=== PATIENT | female | born 1955 | race Caucasian/White ===

== ENCOUNTER 2018-03-12 21:30 | Emergency (ER) | payer OTHER ==
[2018-03-12 21:36] VITALS: TEMP 98.2
[2018-03-12] MEDS ORDERED: SODIUM CHLORIDE 0.9% 1,000 ML IV STA (21:54)
[2018-03-12 22:22] LABS: Albumin 3.9 g/dL (3.5-5.0); Calcium 9.3 mg/dL (8.4-10.2); Magnesium 1.8 mg/dL (1.6-2.3); Potassium 3.7 mmol/L (3.5-5.1); Total Bilirubin 0.5 mg/dL (0.2-1.3)
--- NOTE | 2018-03-12 22:22 | XR ---
EXAMINATION TYPE: XR chest 2V DATE OF EXAM: 03/12/2018 COMPARISON: NONE HISTORY: Chest pain TECHNIQUE: Frontal and lateral views of the chest are obtained. FINDINGS: Heart and mediastinum are within normal limits. Lungs are clear of consolidation. There is osteopenia. There are chest leads. Thoracic aorta shows mild atheromatous change. IMPRESSION: No active cardiopulmonary disease.
[2018-03-12] MEDS ORDERED: MORPHINE SULFATE 2 MG/ML SYRINGE IVP STA (22:26)
--- NOTE | 2018-03-12 22:29 | ED ---
General Adult HPI - General Chief complaint: Chest Pain Stated complaint: Chest pain Time Seen by Provider: 03/12/18 21:40 Source: patient, RN notes reviewed, old records reviewed Mode of arrival: ambulatory Limitations: no limitations - History of Present Illness Initial comments: This is a 62-year-old female the ER for evaluation. This patient was essay for evaluation regards to right-sided chest pain. Patient has history of viral myalgia, does have no significant history of heart disease. Patient states she' s had right-sided chest pain worse with movement for about a day, she also has not left-sided chest pain which feels like prior episodes of shingles. She denies significant shortness of breath may be some chills. Decreased appetite with mild abdominal pain as well. No fevers no travel history - Related Data Home Medications Medication Instructions Recorded Confirmed Aspirin EC [Ecotrin Low Dose] 81 mg PO DAILY 03/12/18 03/12/18 Folic Acid 1 mg PO DAILY 03/12/18 03/12/18 Lisinopril [Zestril] 2.5 mg PO DAILY 03/12/18 03/12/18 Methotrexate Sodium [Methotrexate] 25 mg PO TU 03/12/18 03/12/18 Omeprazole 40 mg PO DAILY 03/12/18 03/12/18 predniSONE 5 mg PO DAILY 03/12/18 03/12/18 Allergies Allergy/AdvReac Type Severity Reaction Status Date / Time No Known Allergies Allergy Verified 03/12/18 22:06 Review of Systems ROS Statement: Those systems with pertinent positive or pertinent negative responses have been documented in the HPI. ROS Other: All systems not noted in ROS Statement are negative. Past Medical History Past Medical History: Fibromyalgia, GERD/Reflux, Rheumatoid Arthritis (RA) History of Any Multi-Drug Resistant Organisms: None Reported Past Surgical History: Breast Surgery Additional Past Surgical History / Comment(s): Cervical surgery Past Psychological History: No Psychological Hx Reported Smoking Status: Never smoker Past Alcohol Use History: Rare Past Drug Use History: Marijuana General Exam Limitations: no limitations General appearance: alert, in no apparent distress Head exam: Present: atraumatic, normocephalic, normal inspection Eye exam: Present: normal appearance, PERRL, EOMI. Absent: scleral icterus, conjunctival injection, periorbital swelling ENT exam: Present: normal exam, mucous membranes moist Neck exam: Present: normal inspection. Absent: tenderness, meningismus, lymphadenopathy Respiratory exam: Present: normal lung sounds bilaterally. Absent: respiratory distress, wheezes, rales, rhonchi, stridor Cardiovascular Exam: Present: regular rate, normal rhythm, normal heart sounds. Absent: systolic murmur, diastolic murmur, rubs, gallop, clicks GI/Abdominal exam: Present: soft, normal bowel sounds. Absent: distended, tenderness, guarding, rebound, rigid Extremities exam: Present: normal inspection, full ROM, normal capillary refill. Absent: tenderness, pedal edema, joint swelling, calf tenderness Back exam: Present: normal inspection Neurological exam: Present: alert, oriented X3, CN II-XII intact Psychiatric exam: Present: normal affect, normal mood Skin exam: Present: warm, dry, intact, normal color. Absent: rash Course Vital Signs 03/12/18 03/12/18 03/12/18 21:32 22:36 23:08 Temperature 98.2 F Pulse Rate 84 78 Respiratory 18 16 16 Rate Blood Pressure 158/73 163/67 O2 Sat by Pulse 99 99 Oximetry 03/12/18 23:50 Temperature Pulse Rate Respiratory 20 Rate Blood Pressure O2 Sat by Pulse Oximetry EKG Findings - EKG Comments: EKG Findings:: EKG shows normal sinus rhythm rate of 86, NH 138, QRS 78, QTC 452 Medical Decision Making - Medical Decision Making 62 female the ER with nonspecific right-sided chest wall pain aside chest pain CT chest negative for acute disease ultrasound gallbladder negative. Patient can be discharged home if she is not in any acute pain currently - Lab Data Result diagrams: 03/12/18 21:55 03/12/18 21:55 Lab Results 03/12/18 03/12/18 03/12/18 Range/Units 21:55 21:55 21:55 WBC 10.3 (3.8-10.6) k/uL RBC 3.88 (3.80-5.40) m/uL Hgb 12.2 (11.4-16.0) gm/dL Hct 37.1 (34.0-46.0) % MCV 95.5 (80.0-100.0) fL MCH 31.4 (25.0-35.0) pg MCHC 32.8 (31.0-37.0) g/dL RDW 18.2 H (11.5-15.5) % Plt Count 221 (150-450) k/uL Neutrophils % 73 % Lymphocytes % 19 % Monocytes % 5 % Eosinophils % 2 % Basophils % 0 % Neutrophils # 7.5 (1.3-7.7) k/uL Lymphocytes # 1.9 (1.0-4.8) k/uL Monocytes # 0.5 (0-1.0) k/uL Eosinophils # 0.2 (0-0.7) k/uL Basophils # 0.0 (0-0.2) k/uL Anisocytosis Slight Macrocytosis Slight PT (9.0-12.0) sec INR (<1.2) APTT (22.0-30.0) sec D-Dimer (<0.60) mg/L FEU Sodium 137 (137-145) mmol/L Potassium 3.7 (3.5-5.1) mmol/L Chloride 101 (98-107) mmol/L Carbon Dioxide 25 (22-30) mmol/L Anion Gap 11 mmol/L BUN 22 H (7-17) mg/dL Creatinine 1.00 (0.52-1.04) mg/dL Est GFR (CKD-EPI)AfAm 70 (>60 ml/min/1.73 sqM) Est GFR (CKD-EPI)NonAf 61 (>60 ml/min/1.73 sqM) Glucose 100 H (74-99) mg/dL Calcium 9.3 (8.4-10.2) mg/dL Magnesium 1.8 (1.6-2.3) mg/dL Total Bilirubin 0.5 (0.2-1.3) mg/dL AST 22 (14-36) U/L ALT 28 (9-52) U/L Alkaline Phosphatase 77 (38-126) U/L Total Creatine Kinase 30 (30-135) U/L CK-MB (CK-2) <0.2 (0.0-2.4) ng/mL CK-MB (CK-2) Rel Index Troponin I <0.012 (0.000-0.034) ng/mL NT-Pro-B Natriuret Pep pg/mL Total Protein 7.0 (6.3-8.2) g/dL Albumin 3.9 (3.5-5.0) g/dL Lipase 44 (23-300) U/L 03/12/18 03/12/18 03/12/18 Range/Units 21:55 23:25 23:25 WBC (3.8-10.6) k/uL RBC (3.80-5.40) m/uL Hgb (11.4-16.0) gm/dL Hct (34.0-46.0) % MCV (80.0-100.0) fL MCH (25.0-35.0) pg MCHC (31.0-37.0) g/dL RDW (11.5-15.5) % Plt Count (150-450) k/uL Neutrophils % % Lymphocytes % % Monocytes % % Eosinophils % % Basophils % % Neutrophils # (1.3-7.7) k/uL Lymphocytes # (1.0-4.8) k/uL Monocytes # (0-1.0) k/uL Eosinophils # (0-0.7) k/uL Basophils # (0-0.2) k/uL Anisocytosis Macrocytosis PT 10.8 (9.0-12.0) sec INR 1.1 (<1.2) APTT 21.9 L (22.0-30.0) sec D-Dimer 0.57 (<0.60) mg/L FEU Sodium (137-145) mmol/L Potassium (3.5-5.1) mmol/L Chloride (98-107) mmol/L Carbon Dioxide (22-30) mmol/L Anion Gap mmol/L BUN (7-17) mg/dL Creatinine (0.52-1.04) mg/dL Est GFR (CKD-EPI)AfAm (>60 ml/min/1.73 sqM) Est GFR (CKD-EPI)NonAf (>60 ml/min/1.73 sqM) Glucose (74-99) mg/dL Calcium (8.4-10.2) mg/dL Magnesium (1.6-2.3) mg/dL Total Bilirubin (0.2-1.3) mg/dL AST (14-36) U/L ALT (9-52) U/L Alkaline Phosphatase (38-126) U/L Total Creatine Kinase (30-135) U/L CK-MB (CK-2) (0.0-2.4) ng/mL CK-MB (CK-2) Rel Index Troponin I (0.000-0.034) ng/mL NT-Pro-B Natriuret Pep 82 pg/mL Total Protein (6.3-8.2) g/dL Albumin (3.5-5.0) g/dL Lipase 31 (23-300) U/L - Radiology Data Radiology results: report reviewed (CT chest negative ultrasound gallbladder is negative), image reviewed Disposition Clinical Impression: Chest pain Disposition: HOME SELF-CARE Condition: Good Instructions: Chest Pain (ED) Is patient prescribed a controlled substance at d/c from ED?: No Referrals: Lucas Julio MD [Primary Care Provider] - 1-2 days
[2018-03-12 22:31] LABS: Anisocytosis Slight; Basophils % (A) 0 %; Eosinophils # (A) 0.2 k/uL (0-0.7); Eosinophils % (A) 2 %; HCT 37.1 % (34.0-46.0); HGB 12.2 gm/dL (11.4-16.0); Lymphocytes # (A) 1.9 k/uL (1.0-4.8); Lymphocytes % (A) 19 %; MCH 31.4 pg (25.0-35.0); MCHC 32.8 g/dL (31.0-37.0); MCV 95.5 fL (80.0-100.0); Macrocytosis Slight; Mean Platelet Volume 8.5; Monocytes # (A) 0.5 k/uL (0-1.0); Monocytes % (A) 5 %; Neutrophils # (A) 7.5 k/uL (1.3-7.7); Neutrophils % (A) 73 %; Platelet Count 221 k/uL (150-450); RBC 3.88 m/uL (3.80-5.40); RDW 18.2 % (11.5-15.5); WBC 10.3 k/uL (3.8-10.6)
[2018-03-12 22:33] LABS: Creatine Kinase 30 U/L (30-135)
[2018-03-12 22:44] LABS: Creatine Kinase MB <0.2 ng/mL (0.0-2.4); Troponin I <0.012 ng/mL (0.000-0.034)
--- NOTE | 2018-03-12 23:35 | CT ---
EXAMINATION TYPE: CT angio chest DATE OF EXAM: 03/12/2018 11:22 PM COMPARISON: None HISTORY: chest pain, r/o pe CT DLP: 509.70 mGycm Automated exposure control for dose reduction was used. CONTRAST: CTA scan of the thorax is performed with IV Contrast, patient injected with 60 mL of Isovue 370, pulm onary embolism protocol. There are 3-D post processed images.. FINDINGS: The lungs are clear of consolidation. There is no evidence of a pulmonary mass. There is no pleural e ffusion. Heart size is normal. There is no pericardial effusion. Thoracic aorta is atheromatous. There is normal contrast opacification of the pulmonary arteries. I see no filling defect. There is n o mediastinal adenopathy. There are no hilar masses. There is some spurring in the thoracic spine. IMPRESSION: NO EVIDENCE OF PULMONARY EMBOLISM. MILD SPONDYLOTIC CHANGES IN THE THORACIC SPINE. ATHEROSCLEROTIC VA SCULAR DISEASE.
[2018-03-12 23:53] LABS: D-Dimer 0.57 mg/L FEU (<0.60); INR 1.1 (<1.2); Partial Thromboplastin Time 21.9 sec (22.0-30.0); Prothrombin Time 10.8 sec (9.0-12.0)
--- NOTE | 2018-03-13 00:36 | US ---
EXAMINATION TYPE: US gallbladder DATE OF EXAM: 03/13/2018 COMPARISON: NONE CLINICAL HISTORY: Pain. RUQ pain. Exam limitations due to body habitus. EXAM MEASUREMENTS: Liver Length: 15.5 cm Gallbladder Wall: 0.27 cm CBD: 0.6 cm Right Kidney: 9.7 x 4.4 x 4.7 cm Pancreas: Obscured by bowel gas Liver: Increased attenuation Gallbladder: No stones seen Evidence for sonographic Moore's sign: No CBD: wnl Right Kidney: No hydronephrosis or masses seen IMPRESSION: No gallstones or dilated ducts. Right kidney shows no hydronephrosis. No free fluid.
[2018-03-13 01:44] VITALS: BP 114/56; PULSE 73; RESP 16
== END 2018-03-13 01:50 | disposition home or self-care (01) ==
LOC: EC 21:30
DX: R07.9 Chest pain, unspecified (principal); M79.7 Fibromyalgia; K21.9 Gastro-esophageal reflux disease without esophagitis; M06.9 Rheumatoid arthritis, unspecified; Z98.890 Other specified postprocedural states; Z79.52 Long term (current) use of systemic steroids; Z79.82 Long term (current) use of aspirin; Z79.899 Other long term (current) drug therapy
CPT/HCPCS: 36415; 93005; 85379; 83880; 80053; 82550; 82553; 83690; 83735; 84484; 85025; 85610; 85730; 71046; 76705; 71275; 99285; 96374; 96361 ×3; J2270; Q9967

== ENCOUNTER 2023-01-13 18:08 | Inpatient (IN) | payer MEDICARE, OTHER ==
[2023-01-13] MEDS ORDERED: IBUPROFEN 600 MG TAB PO STA (18:50)
[2023-01-13] MEDS ORDERED: ACETAMINOPHEN TAB 500 MG TAB PO STA (18:50)
[2023-01-13] MEDS: SODIUM CHLORIDE 0.9% 500 ML 500 ML IV SCH ×2 (19:12→19:53)
[2023-01-13 19:24] LABS: Anisocytosis Slight; Basophils % (A) 0 %; Eosinophils # (A) 0.2 k/uL (0-0.7); Eosinophils % (A) 2 %; HCT 31.9 % (34.0-46.0); HGB 10.2 gm/dL (11.4-16.0); Hypochromasia Slight; Lymphocytes # (A) 0.4 k/uL (1.0-4.8); Lymphocytes % (A) 4 %; MCHC 31.9 g/dL (31.0-37.0); MCV 100.3 fL (80.0-100.0); Macrocytosis Slight; Mean Platelet Volume 7.8; Monocytes # (A) 0.6 k/uL (0-1.0); Monocytes % (A) 8 %; Neutrophils # (A) 6.7 k/uL (1.3-7.7); Neutrophils % (A) 84 %; Platelet Count 239 k/uL (150-450); RBC 3.19 m/uL (3.80-5.40); RDW 17.7 % (11.5-15.5)
--- NOTE | 2023-01-13 19:25 | CT ---
EXAMINATION TYPE: CT brain wo con DATE OF EXAM: 01/13/2023 COMPARISON: None INDICATION: AMS, dyskinesia DLP: 1183.4 mGycm, Automated exposure control for dose reduction was used. CONTRAST: None CT of the brain is performed utilizing 3 mm thick sections through the posterior fossa and 3 mm thick sections through the remaining calvarium. Study is performed within 24 hours of arrival to the hosp ital. No abnormal hyperdensity is present to suggest an acute intracranial hemorrhage. No mass lesion is evident. No acute infarcts are evident. There is mild periventricular white matter hypodensity, likely on the basis of chronic white matter ischemic changes Ventricles and sulci are prominent for the patient age. Paranasal sinuses and mastoid air cells within the [id number] are clear. IMPRESSIONS: 1. Atrophy with chronic appearing periventricular white matter ischemic-type changes. Follow-up MRI can be performed as clinically indicated
[2023-01-13 19:34] LABS: Albumin 3.4 g/dL (3.5-5.0); Calcium 8.8 mg/dL (8.4-10.2); Potassium 4.2 mmol/L (3.5-5.1); Total Bilirubin 0.4 mg/dL (0.2-1.3); Total Protein 6.9 g/dL (6.3-8.2)
[2023-01-13 19:40] LABS: Appearance,Urine Clear (Clear); Bacteria,Urine Rare /hpf; Bilirubin,Urine Negative (Negative); Blood,Urine Trace (Negative); Calcium Oxalate Crystals,Urine Many /hpf; Color,Urine Yellow; Glucose,Urine (UA) Negative (Negative); Hyaline Casts,Urine 4 /lpf (0-2); Ketones,Urine Trace (Negative); Leukocyte Esterase,Urine Trace (Negative); Mucus,Urine Rare /hpf; Nitrite,Urine Negative (Negative); PH, Urine 6.5 (5.0-8.0); Protein,Urine 1+ (Negative); RBC,Urine 13 /hpf (0-5); Specific Gravity,Urine 1.024 (1.001-1.035); Squamous Epithelial Cell,Urine 2 /hpf (0-4); WBC,Urine 6 /hpf (0-5)
[2023-01-13 19:45] LABS: Partial Thromboplastin Time 23.2 sec (22.0-30.0); Prothrombin Time 10.8 sec (9.0-12.0)
--- NOTE | 2023-01-13 20:19 | ED ---
General Adult HPI - General Chief complaint: Altered Mental Status Stated complaint: AMS Time Seen by Provider: 01/13/23 18:15 Source: patient, EMS, RN notes reviewed, old records reviewed Mode of arrival: EMS - History of Present Illness Initial comments: This is a 67-year-old female presents emergency Department with daughter. Daughter gives most history. Patient herself states that she has no symptoms and has no complains. Daughter states she has a fever and she is acting a little differently and having quite a bit of dyskinesia. Patient herself agrees that that is happening her extremities are moving occasionally involuntarily but patient is alert and oriented 3. Patient denies any chest pain difficulty breathing shortness of breath. Patient denies headache patient denies numbness or weakness. Patient denies any neck stiffness or pain. Patient's abdominal pain patient denies nausea vomiting diarrhea. Patient denies any dysuria hematuria urinary frequency. - Related Data Home Medications Medication Instructions Recorded Confirmed Aspirin EC [Ecotrin Low Dose] 81 mg PO DAILY 03/12/18 03/12/18 Folic Acid 1 mg PO DAILY 03/12/18 03/12/18 Omeprazole 40 mg PO DAILY 03/12/18 03/12/18 lisinopriL [Zestril] 2.5 mg PO DAILY 03/12/18 03/12/18 metHOTREXate sodium [Methotrexate] 25 mg PO TU 03/12/18 03/12/18 predniSONE 5 mg PO DAILY 03/12/18 03/12/18 Allergies Allergy/AdvReac Type Severity Reaction Status Date / Time No Known Allergies Allergy Verified 03/12/18 22:06 Review of Systems ROS Statement: Those systems with pertinent positive or pertinent negative responses have been documented in the HPI. ROS Other: All systems not noted in ROS Statement are negative. Past Medical History Past Medical History: Fibromyalgia, GERD/Reflux, Rheumatoid Arthritis (RA) History of Any Multi-Drug Resistant Organisms: None Reported Past Surgical History: Breast Surgery Additional Past Surgical History / Comment(s): Cervical surgery Past Psychological History: No Psychological Hx Reported Smoking Status: Former smoker Past Alcohol Use History: Rare Past Drug Use History: Marijuana General Exam - General Exam Comments Initial Comments: GENERAL: Patient is well-developed and well-nourished. Patient is nontoxic and well-hydr ated and is in no acute distress. ENT: Neck is soft and supple. No significant lymphadenopathy is noted. Oropharynx is clear. Moist mucous membranes. Neck has full range of motion without eliciting any pain. EYES: The sclera were anicteric and conjunctiva were pink and moist. Extraocular mov ements were intact and pupils were equal round and reactive to light. Eyelids were unremarkable. PULMONARY: Unlabored respirations. Good breath sounds bilaterally. No audible rales rhonchi or wheezing was noted. CARDIOVASCULAR: There is a regular rate and rhythm without any murmurs gallops or rubs. ABDOMEN: Soft and nontender with normal bowel sounds. SKIN: Skin is clear with no lesions or rashes and otherwise unremarkable. NEUROLOGIC: Patient is alert and oriented x3. Cranial nerves II through XII are grossly intact. Motor and sensory are also intact. Normal speech, volume and content. Symmetrical smile. Patient has some involuntary movements of the arms legs and head. MUSCULOSKELETAL: Normal extremities with adequate strength and full range of motion. LYMPHATICS: No significant lymphadenopathy is noted PSYCHIATRIC: Normal psychiatric evaluation. Course Vital Signs 01/13/23 01/13/23 18:13 20:19 Temperature 102.7 F H 99.6 F Pulse Rate 114 H 82 Respiratory 18 16 Rate Blood Pressure 141/65 140/61 O2 Sat by Pulse 95 96 Oximetry Medical Decision Making - Medical Decision Making EKG was interpreted by me as very poor quality V5 and V6 cannot be read because of the patient's movement. EKG shows a sinus rhythm at 94 bpm [place] interval is 225 QRSs 80 QT interval is 370 QTC is 339. Patient's EKG shows no ST segment elevation or depression Was pt. sent in by a medical professional or institution (, PA, FRAME MAKER, urgent care, hospital, or residential...) When possible be specific @ -No Did you speak to anyone other than the patient for history (EMS, parent, family, police, friend...)? What history was obtained from this source @ -Daughter gave most of the history Did you review nursing and triage notes (agree or disagree)? Why? @ -I reviewed and agree with nursing and triage notes Were old charts reviewed (outside hosp., previous admission, EMS record, old EKG, old radiological studies, urgent care reports/EKG's, residential records)? Report findings @ -I reviewed old charts and lab work Differential Diagnosis (chest pain, altered mental status, abdominal pain women, abdominal pain men, vaginal bleeding, weakness, fever, dyspnea, syncope, headache, dizziness, GI bleed, back pain, seizure, CVA, palpatations, mental health, @ -Differential Fever: Pneumonia, viral URI, endocarditis, myocarditis, pericarditis, otitis, sinusitis, peritonsillar Abscess, retropharyngeal Abscess, epiglottitis, peritonitis, appendicitis, Katja cystitis, diverticulitis, hepatitis, colitis, UTI, PID, TOA, pyelonephritis, prostatitis, epididymitis, meningitis, encephalitis, pulmonary embolism, CVA, thyroid storm, pancreatitis, adrenal crisis, cavernous sinus thrombosis, this is not meant to be an all-inclusive list. EKG interpreted by me (3pts min.). @ -As above X-rays interpreted by me (1pt min.). @ -I interpreted the chest x-ray. Chest x-ray shows a pleural effusion and an infiltrate consistent with pneumonia CT interpreted by me (1pt min.). @ -CT of brain was interpreted by myself shows no acute abnormalities U/S interpreted by me (1pt. min.). @ -None done What testing was considered but not performed or refused? (CT, X-rays, U/S, labs)? Why? @ -None What meds were considered but not given or refused? Why? @ -None Did you discuss the management of the patient with other professionals (professionals i.e. , PA, FRAME MAKER, lab, RT, psych nurse, 7th grade social studies teacher, maintenance engineer oil field, teacher, corporate banking officer, embedded case manager)? Give summary @ -I spoke with [place] hospitalist agreed to admit the patient admitted the patient wrote admitting orders. Was smoking cessation discussed for >3mins.? @ -No Was critical care preformed (if so, how long)? @ -No Were there social determinants of health that impacted care today? How? (Homelessness, low income, unemployed, alcoholism, drug addiction, transportation, low edu. Level, literacy, decrease access to med. care, penitentiary, rehab)? @ -No Was there de-escalation of care discussed even if they declined (Discuss DNR or withdrawal of care, Hospice)? DNR status @ -No What co-morbidities impacted this encounter? (DM, HTN, Smoking, COPD, CAD, Cancer, CVA, ARF, Chemo, Hep., AIDS, mental health diagnosis, sleep apnea, morbid obesity)? @ -None Was patient admitted / discharged? Hospital course, mention meds given and rout e, prescriptions, significant lab abnormalities, going to OR and other pertinent info. @ -Patient had Motrin and Tylenol for the fever and is having a lot less involuntary movement. Patient was still alert and oriented 3 and without complaint. Chest x-ray showed a pleural effusion on the left and a probable infiltrate. I started the patient antibiotics I spoke with the [facility] hospitalist agreed to admit the patient admitted the patient wrote admitting orders Undiagnosed new problem with uncertain prognosis? @ -No Drug Therapy requiring intensive monitoring for toxicity (Heparin, Nitro, Insulin, Cardizem)? @ -No Were any procedures done? @ -No Diagnosis/symptom? @ -Pneumonia Acute, or Chronic, or Acute on Chronic? @ -Acute Uncomplicated (without systemic symptoms) or Complicated (systemic symptoms)? @ -Complicated Side effects of treatment? @ -No Exacerbation, Progression, or Severe Exacerbation? @ -No Poses a threat to life or bodily function? How? (Chest pain, [place], NC, pneumonia, PE, COPD, DKA, ARF, appy, cholecystitis, CVA, Diverticulitis, Homicidal, Suicidal, threat to staff... and all critical care pts) @ -No Diagnosis/symptom? @ -Pleural effusion Acute, or Chronic, or Acute on Chronic? @ -Acute Uncomplicated (without systemic symptoms) or Complicated (systemic symptoms)? @ -Complicated Side effects of treatment? @ -none Exacerbation, Progression, or Severe Exacerbation] @ -no Poses a threat to life or bodily function? @ -no - Lab Data Result diagrams: 01/13/23 19:03 01/13/23 19:03 Lab Results 01/13/23 01/13/23 01/13/23 Range/Units 19:03 19:03 19:03 WBC 8.0 (3.8-10.6) k/uL RBC 3.19 L (3.80-5.40) m/uL Hgb 10.2 L (11.4-16.0) gm/dL Hct 31.9 L (34.0-46.0) % MCV 100.3 H (80.0-100.0) fL MCH 32.0 (25.0-35.0) pg MCHC 31.9 (31.0-37.0) g/dL RDW 17.7 H (11.5-15.5) % Plt Count 239 (150-450) k/uL MPV 7.8 Neutrophils % 84 % Lymphocytes % 4 % Monocytes % 8 % Eosinophils % 2 % Basophils % 0 % Neutrophils # 6.7 (1.3-7.7) k/uL Lymphocytes # 0.4 L (1.0-4.8) k/uL Monocytes # 0.6 (0-1.0) k/uL Eosinophils # 0.2 (0-0.7) k/uL Basophils # 0.0 (0-0.2) k/uL Hypochromasia Slight Anisocytosis Slight Macrocytosis Slight PT 10.8 (9.0-12.0) sec INR 1.0 (<1.2) APTT 23.2 (22.0-30.0) sec Sodium (137-145) mmol/L Potassium (3.5-5.1) mmol/L Chloride (98-107) mmol/L Carbon Dioxide (22-30) mmol/L Anion Gap mmol/L BUN (7-17) mg/dL Creatinine (0.52-1.04) mg/dL Est GFR (CKD-EPI)AfAm (>60 ml/min/1.73 sqM) Est GFR (CKD-EPI)NonAf (>60 ml/min/1.73 sqM) Glucose (74-99) mg/dL Plasma Lactic Acid Tigre (0.7-2.0) mmol/L Calcium (8.4-10.2) mg/dL Total Bilirubin (0.2-1.3) mg/dL AST (14-36) U/L ALT (4-34) U/L Alkaline Phosphatase (38-126) U/L Total Protein (6.3-8.2) g/dL Albumin (3.5-5.0) g/dL Urine Color Urine Appearance (Clear) Urine pH (5.0-8.0) Ur Specific [place] (1.001-1.035) Urine Protein (Negative) Urine Glucose (UA) (Negative) Urine Ketones (Negative) Urine Blood (Negative) Urine Nitrite (Negative) Urine Bilirubin (Negative) Urine Urobilinogen (<2.0) mg/dL Ur Leukocyte Esterase (Negative) Urine RBC (0-5) /hpf Urine WBC (0-5) /hpf Ur Squamous Epith Cells (0-4) /hpf Calcium Oxalate Crystal (None) /hpf Urine Bacteria (None) /hpf Hyaline Casts (0-2) /lpf Urine Mucus (None) /hpf Influenza Type A (PCR) Not Detected (Not Detectd) Influenza Type B (PCR) Not Detected (Not Detectd) RSV (PCR) Not Detected (Not Detectd) SARS-CoV-2 (PCR) Not Detected (Not Detectd) 01/13/23 01/13/23 01/13/23 Range/Units 19:03 19:03 19:03 WBC (3.8-10.6) k/uL RBC (3.80-5.40) m/uL Hgb (11.4-16.0) gm/dL Hct (34.0-46.0) % MCV (80.0-100.0) fL MCH (25.0-35.0) pg MCHC (31.0-37.0) g/dL RDW (11.5-15.5) % Plt Count (150-450) k/uL MPV Neutrophils % % Lymphocytes % % Monocytes % % Eosinophils % % Basophils % % Neutrophils # (1.3-7.7) k/uL Lymphocytes # (1.0-4.8) k/uL Monocytes # (0-1.0) k/uL Eosinophils # (0-0.7) k/uL Basophils # (0-0.2) k/uL Hypochromasia Anisocytosis Macrocytosis PT (9.0-12.0) sec INR (<1.2) APTT (22.0-30.0) sec Sodium 135 L (137-145) mmol/L Potassium 4.2 (3.5-5.1) mmol/L Chloride 101 (98-107) mmol/L Carbon Dioxide 25 (22-30) mmol/L Anion Gap 9 mmol/L BUN 16 (7-17) mg/dL Creatinine 1.03 (0.52-1.04) mg/dL Est GFR (CKD-EPI)AfAm 65 (>60 ml/min/1.73 sqM) Est GFR (CKD-EPI)NonAf 56 (>60 ml/min/1.73 sqM) Glucose 116 H (74-99) mg/dL Plasma Lactic Acid Tigre 1.8 (0.7-2.0) mmol/L Calcium 8.8 (8.4-10.2) mg/dL Total Bilirubin 0.4 (0.2-1.3) mg/dL AST 25 (14-36) U/L ALT 15 (4-34) U/L Alkaline Phosphatase 74 (38-126) U/L Total Protein 6.9 (6.3-8.2) g/dL Albumin 3.4 L (3.5-5.0) g/dL Urine Color Yellow Urine Appearance Clear (Clear) Urine pH 6.5 (5.0-8.0) Ur Specific [place] 1.024 (1.001-1.035) Urine Protein 1+ H (Negative) Urine Glucose (UA) Negative (Negative) Urine Ketones Trace H (Negative) Urine Blood Trace H (Negative) Urine Nitrite Negative (Negative) Urine Bilirubin Negative (Negative) Urine Urobilinogen 3.0 (<2.0) mg/dL Ur Leukocyte Esterase Trace H (Negative) Urine RBC 13 H (0-5) /hpf Urine WBC 6 H (0-5) /hpf Ur Squamous Epith Cells 2 (0-4) /hpf Calcium Oxalate Crystal Many H (None) /hpf Urine Bacteria Rare H (None) /hpf Hyaline Casts 4 H (0-2) /lpf Urine Mucus Rare H (None) /hpf Influenza Type A (PCR) (Not Detectd) Influenza Type B (PCR) (Not Detectd) RSV (PCR) (Not Detectd) SARS-CoV-2 (PCR) (Not Detectd) Disposition Clinical Impression: Pleural effusion, Pneumonia, Dyskinesia Disposition: ADMITTED IP TO THIS HOSP Referrals: Lucas Julio MD [Primary Care Provider] - 1-2 days Time of Disposition: 20:30
[2023-01-13] MEDS ORDERED: PNEUMONIA PROTOCOL UTILIZED 1 EACH MISC PO PRN (20:30)
[2023-01-13] MEDS ORDERED: AZITHROMYCIN 500 MG in SODIUM CHLORIDE 0.9% 250 ML IVPB STA (20:30)
--- NOTE | 2023-01-13 20:32 | XR ---
EXAMINATION TYPE: XR chest 2V DATE OF EXAM: 01/13/2023 COMPARISON: 03/12/2018 INDICATION: Difficulty breathing TECHNIQUE: Frontal and lateral views of the chest are obtained. FINDINGS: The heart size is normal. The pulmonary vasculature is normal. There is small to moderate left pleural effusion.. IMPRESSION: 1. Small to moderate left pleural effusion
--- NOTE | 2023-01-14 08:51 | XR ---
EXAMINATION TYPE: XR chest 2V DATE OF EXAM: 01/14/2023 7:48 AM COMPARISON: Chest radiographs from 01/14/2023, CTA chest 03/12/2018. TECHNIQUE: XR chest 2V Frontal and lateral views of the chest. CLINICAL INDICATION:Female, 67 years old with history of pneumonia; FINDINGS: Lungs/Pleura: Right lung is clear. No pneumothorax. Moderate size left pleural effusion with adjacent airspace opacity. Pulmonary vascularity: Unremarkable. Heart/mediastinum: Cardiomediastinal silhouette is stable and partially obscured due to surrounding o pacity. Atherosclerotic calcifications are seen in the aorta. Musculoskeletal: No acute osseous pathology. Mild multilevel degenerative changes of the thoracic spi ne. IMPRESSION: Similar moderate size left pleural effusion with adjacent airspace opacity which may represent atelec tasis versus pneumonia.
--- NOTE | 2023-01-14 12:08 | HP ---
HISTORY AND PHYSICAL CHIEF COMPLAINTS: Shortness of breath, cough, and confusion. HISTORY OF PRESENT ILLNESS: This is a 67-year-old woman with a past medical history of fibromyalgia, rheumatoid arthritis, who was noted to have fever, some dyskinesia, and also shortness of breath and cough and the patient came to [facility] and found to have left-sided pneumonia with pleural effusion. The patient was admitted for further evaluation and treatment. There is no history of any headache, loss of consciousness, or seizures. The patient is confused. PAST MEDICAL HISTORY: Reviewed include fibromyalgia, rheumatoid arthritis. Rest of the history and rest of the chart is also reviewed. HOME MEDICATIONS: Methotrexate. Rest of the dose and rest of medications reviewed. ALLERGIES: Tetracycline. Rest of the allergies reviewed. FAMILY HISTORY: No history of heart disease or strokes in the family. SOCIAL HISTORY: Previous history of smoking. REVIEW OF SYSTEMS: Could not be taken because of the change in mental status. PHYSICAL EXAMINATION: VITAL SIGNS: Pulse is 120, blood pressure is 132/74, respirations 16, temperature 100.1. HEENT: Conjunctivae normal. NECK: No JVD. CARDIOVASCULAR: S1, S2 muffled. RESPIRATIONS: Breath sounds diminished at the bases. Few scattered rhonchi and crackles. Breath sounds diminished on the left side. ABDOMEN: Soft, nontender. LEGS: No edema. No cyanosis. Diffusely weak and tremors present. Dyskinetic movements also present. SKIN: No ulcer, rash, bleeding. JOINTS: No active deforming arthropathy. LABORATORY DATA: Labs are reviewed. ASSESSMENT: 1. History of pleural effusion and pneumonia, rule out atypical pneumonia. 2. Change in mental status, metabolic encephalopathy, rule out sepsis. 3. Gastroesophageal reflux disease. 4. Rheumatoid arthritis. 5. History of cholecystectomy. 6. Multiple medical issues. RECOMMENDATIONS: This is a 67-year-old woman who presented with multiple complex medical issues, we will monitor the patient closely. I would recommend broad-spectrum IV antibiotics, pulmonary, ID and neuro consultations. I would also recommend D-dimer and if it is positive, recommend CT angio of the chest. Otherwise, overall prognosis guarded, which I discussed at length with the daughter at the bedside and further recommendations to follow. We will obtain the cultures also. MMODL / IJN: [id number] /
[2023-01-14] MEDS: DOCUSATE 100 MG CAP PO SCH (12:36)
[2023-01-14] MEDS: FERROUS SULFATE 325 MG TAB PO SCH (12:37)
[2023-01-14] MEDS ORDERED: LORazepam 1 MG TAB PO STA (12:39)
[2023-01-14] MEDS: ASPIRIN 81 MG PO SCH (12:43)
[2023-01-14] MEDS: ASCORBIC ACID 500 MG TAB PO SCH (12:43)
[2023-01-14] MEDS: CHOLECALCIFEROL 25 MCG (1000 IU) TABLET PO SCH (12:43)
[2023-01-14] MEDS: FOLIC ACID 1 MG TAB PO SCH (12:44)
[2023-01-14] MEDS: LORATADINE 10 MG TAB PO SCH (12:45)
[2023-01-14] MEDS: EZETIMIBE 10 MG TAB PO SCH (12:46)
--- NOTE | 2023-01-14 13:02 | P.CN ---
Psychiatric Consult - . Consult date: 01/14/23 Consult:: 01/14/23 13:01 IDENTIFYING DATA: This patient is a , retired, 67-year-old female with significant history of hypertension who presents for hospital on 01/13/2023 for altered mental status. HISTORY OF PRESENT ILLNESS: The patient presented to the hospital on 01/13/2023 for altered mental status. The patient was determined to have pneumonia and trace leukocyte esterase on UA. Psychiatry has been consulted for altered mental status. Present in the room with the patient is her daughter Arlene Alvarez. The patient is agreeable to having her daughter present for the evaluation. The patient's daughter provides collateral information as the patient is a limited historian at this time. The patient's daughter informs this provider that the patient had an abrupt change in her mental status on Thursday (2 days ago). She reports that the patient has been increasingly confused and appears to be unable to hold a conversation. She is often repeating herself and staring blankly. The patient however is not endorsing any auditory or visual hallucinations. She is not reporting any paranoia or other delusions. She is oriented to person and place only. The patient is not endorsing any suicidal or homicidal ideation, intention, and/or plan. The patient's daughter reports that she has been having difficulty with sleep over the past 2 days. She does report however the patient does have a fair appetite. The patient and her daughter did not report any acute stressors. They do not report any significant history of trauma. The patient does engage in marijuana use daily. No significant history of substance use otherwise. PAST PSYCHIATRIC HISTORY: Patient has a history of depression and anxiety. Her home medication includes Effexor. Patient denies any previous psychiatric hospitalizations. Patient denies any psychiatric outpatient follow-up. Patient denies any history of suicide attempts in the past. PAST MEDICAL HISTORY: Past Medical History: Fibromyalgia, GERD/Reflux, Rheumatoid Arthritis (RA) History of Any Multi-Drug Resistant Organisms: None Reported Past Surgical History: Breast Surgery Additional Past Surgical History / Comment(s): Cervical surgery Past Psychological History: No Psychological Hx Reported Smoking Status: Former smoker Past Alcohol Use History: Rare Past Drug Use History: Marijuana ALLERGIES: Allergies Allergy/AdvReac Type Severity Reaction Status Date / Time Tetracyclines Allergy Unknown Verified 01/13/23 20:48 hydrochlorothiazide AdvReac Vomiting Verified 01/13/23 20:48 [From Zestoretic] lisinopril [From Zestoretic] AdvReac Vomiting Verified 01/13/23 20:48 CHEMICAL DEPENDENCY HISTORY: As per HPI FAMILY PSYCHIATRIC/SUBSTANCE USE HISTORY: No reported family psychiatric history. SOCIAL HISTORY: Patient was born in [facility] and raised in the [place]. She is since the early 1999. She has 2 adult children. She lives by herself. She does report that her daughter visits her most days. She reports a [employer] nicki. She reports no significant history of trauma. MENTAL STATUS EXAM: General Appearance: Patient appears to be stated age is alert, pleasant, and cooperative. Patient appears to have fair hygiene and grooming wearing hospital gown with fair eye contact. Behavior: Patient appears to be grossly restless while lying down in bed. Elevated psychomotor activity. Speech: Patient's speech is fluent and nonpressured. Word finding difficulty. Mood/Affect: Patient reports their mood is "depressed", affect is congruent Suicidality/Homicidality: Patient denies having any suicidal or homicidal ideation intent or plan. Perceptions: Patient denies any visual hallucinations and denies any auditory hallucinations Though content/process: There is no evidence of any delusional thought content and thought process is linear and goal-directed. Memory and concentration: Alert and oriented 2 only. Concentration appears to be poor. Judgment and insight: Poor at this time. IMPRESSIONS: Altered mental status, likely secondary to metabolic encephalopathy from pneumonia/UTI Depression, as per history Cannabis use PLAN: -At this time patient DOES NOT meet criteria for inpatient psychiatric admission. The patient is currently not presenting with imminent risk of harm to self or others. Change in mentation likely secondary to pneumonia. -Delirium precautions recommended with patient including - avoiding use of narcotics and [employer] sedatives, limit anticholinergic medications when possible, frequent re-orientation, minimize use of restraints, open window shades during the day and close them at night -Would recommend the following medication changes/additions: We will order one time dose of Ativan to address akathisia-like symptoms May continue Seroquel 12.5 mg by mouth at bedtime for altered mental status/psychosis. Hold Effexor at this time. We will initiate with the patient is back at baseline. -TSH, B12, folate ordered. -Will continue to follow along Laboratory Results WBC 8.0 k/uL (3.8-10.6) 01/13/23 19:03 RBC 3.19 m/uL (3.80-5.40) L 01/13/23 19:03 Hgb 10.2 gm/dL (11.4-16.0) L 01/13/23 19:03 Hct 31.9 % (34.0-46.0) L 01/13/23 19:03 MCV 100.3 fL (80.0-100.0) H 01/13/23 19:03 MCH 32.0 pg (25.0-35.0) 01/13/23 19: MCHC 31.9 g/dL (31.0-37.0) 01/13/23 19:03 RDW 17.7 % (11.5-15.5) H 01/13/23 19:03 Plt Count 239 k/uL (150-450) 01/13/23 19:03 MPV 7.8 01/13/23 19:03 Neutrophils % 84 % 01/13/23 19:03 Lymphocytes % 4 % 01/13/23 19:03 Monocytes % 8 % 01/13/23 19:03 Eosinophils % 2 % 01/13/23 19:03 Basophils % 0 % 01/13/23 19:03 Neutrophils # 6.7 k/uL (1.3-7.7) 01/13/23 19:03 Lymphocytes # 0.4 k/uL (1.0-4.8) L 01/13/23 19:03 Monocytes # 0.6 k/uL (0-1.0) 01/13/23 19:03 Eosinophils # 0.2 k/uL (0-0.7) 01/13/23 19:03 Basophils # 0.0 k/uL (0-0.2) 01/13/23 19:03 Hypochromasia Slight 01/13/23 19:03 Anisocytosis Slight 01/13/23 19:03 Macrocytosis Slight 01/13/23 19:03 PT 10.8 sec (9.0-12.0) 01/13/23 19:03 INR 1.0 (<1.2) 01/13/23 19:03 APTT 23.2 sec (22.0-30.0) 01/13/23 19:03 D-Dimer 1.90 mg/L FEU (<0.60) H 01/14/23 10:41 Sodium 135 mmol/L (137-145) L 01/13/23 19:03 Potassium 4.2 mmol/L (3.5-5.1) 01/13/23 19:03 Chloride 101 mmol/L (98-107) 01/13/23 19:03 Carbon Dioxide 25 mmol/L (22-30) 01/13/23 19:03 Anion Gap 9 mmol/L 01/13/23 19:03 BUN 16 mg/dL (7-17) 01/13/23 19:03 Creatinine 1.03 mg/dL (0.52-1.04) 01/13/23 19:03 Est GFR (CKD-EPI)AfAm 65 (>60 ml/min/1.73 sqM) 01/13/23 19:03 Est GFR (CKD-EPI)NonAf 56 (>60 ml/min/1.73 sqM) 01/13/23 19:03 Glucose 116 mg/dL (74-99) H 01/13/23 19:03 Plasma Lactic Acid Tigre 1.8 mmol/L (0.7-2.0) 01/13/23 19:03 Calcium 8.8 mg/dL (8.4-10.2) 01/13/23 19:03 Total Bilirubin 0.4 mg/dL (0.2-1.3) 01/13/23 19:03 AST 25 U/L (14-36) 01/13/23 19:03 ALT 15 U/L (4-34) 01/13/23 19:03 Alkaline Phosphatase 74 U/L (38-126) 01/13/23 19:03 Total Protein 6.9 g/dL (6.3-8.2) 01/13/23 19:03 Albumin 3.4 g/dL (3.5-5.0) L 01/13/23 19:03 Urine Color Yellow 01/13/23 19:03 Urine Appearance Clear (Clear) 01/13/23 19:03 Urine pH 6.5 (5.0-8.0) 01/13/23 19:03 Ur Specific [place] 1.024 (1.001-1.035) 01/13/23 19:03 Urine Protein 1+ (Negative) H 01/13/23 19:03 Urine Glucose (UA) Negative (Negative) 01/13/23 19:03 Urine Ketones Trace (Negative) H 01/13/23 19:03 Urine Blood Trace (Negative) H 01/13/23 19:03 Urine Nitrite Negative (Negative) 01/13/23 19:03 Urine Bilirubin Negative (Negative) 01/13/23 19:03 Urine Urobilinogen 3.0 mg/dL (<2.0) 01/13/23 19:03 Ur Leukocyte Esterase Trace (Negative) H 01/13/23 19:03 Urine RBC 13 /hpf (0-5) H 01/13/23 19:03 Urine WBC 6 /hpf (0-5) H 01/13/23 19:03 Ur Squamous Epith Cells 2 /hpf (0-4) 01/13/23 19:03 Calcium Oxalate Crystal Many /hpf (None) H 01/13/23 19:03 Urine Bacteria Rare /hpf (None) H 01/13/23 19:03 Hyaline Casts 4 /lpf (0-2) H 01/13/23 19:03 Urine Mucus Rare /hpf (None) H 01/13/23 19:03 Influenza Type A (PCR) Not Detected (Not Detectd) 01/13/23 19:03 Influenza Type B (PCR) Not Detected (Not Detectd) 01/13/23 19:03 RSV (PCR) Not Detected (Not Detectd) 01/13/23 19:03 SARS-CoV-2 (PCR) Not Detected (Not Detectd) 01/13/23 19:03 Vital Signs Temp 100.1 F H 01/14/23 07:06 Pulse 120 H 01/14/23 08:40 Resp 16 01/14/23 08:40 BP 132/74 01/14/23 07:06 Pulse Ox 95 01/14/23 07:06 FiO2 Intake & Output 01/13/23 01/14/23 01/14/23 18:59 06:59 18:59 Weight 68.039 kg 68.039 kg Other: Voiding Method Toilet # Voids 3 1 01/14/23 13:01
[2023-01-14] MEDS ORDERED: RX INFO: IV CONTRAST WAS GIVEN 1 EACH MISC MISCELLANE PRN (13:18)
--- NOTE | 2023-01-14 13:30 | P.CNNES ---
History of Present Illness Consult date: 01/14/23 Requesting physician: Meg Gerard Reason for Consult: ams, confusion, pneumonia History of Present Illness: This is a 67-year-old woman who presented emergency department because of confusion. She was obtained from the patient's daughter. According to patient daughter the patient's grandchildren has been having the some upper respiratory tract infection recently and as a result the patient has been coughing. Aliza handy felt the patient has been not acting herself and she was confused, she did having chills as a result she brought the patient to the hospital. According to the daughter at baseline the patient's the alert oriented 3. Patient does not have any history of stroke or TIA. Does not have any history of seizure. He seems the patient has been more fidgety and restless. Currently patient denies of any headache neck stiffness. Per the daughter's she's been having nausea vomiting episode. For the daughter the patient does not use any illicit drug use. The she uses marijuana. No tobacco use. No significant alcohol use. Some other workup during his hospital visit consisted of: Initial temperature is 102.7 Fahrenheit and most recent one is 100.1 White blood cell is 8.0 thousand. MCV is 100.3. AST and ALT is within normal limits. SARS-CoV-2 PCR is not detected. Influenza A/B and RSV are negative. Urine Analysis I feel is not suggestive of underlying ureter tract infection. Chest x-rays reported a similar moderate size left pleural effusion with adjacent airspace opacity which may represent atelectasis versus pneumonia. CT of the head is reported as atrophy with chronic appearing periventricular white matter ischemic type changes. Follow-up MRI can be performed as clinically indicated. Review of Systems Review of system: The 12 point system was reviewed and apparent positive and negative per HPI. Past Medical History Past Medical History: Fibromyalgia, GERD/Reflux, Rheumatoid Arthritis (RA) History of Any Multi-Drug Resistant Organisms: None Reported Past Surgical History: Breast Surgery, Cholecystectomy Additional Past Surgical History / Comment(s): Cervical surgery Past Psychological History: No Psychological Hx Reported Smoking Status: Former smoker Past Alcohol Use History: Rare Past Drug Use History: Marijuana Medications and Allergies Home Medications Medication Instructions Recorded Confirmed Type Aspirin EC [Ecotrin Low Dose] 81 mg PO DAILY 03/12/18 01/13/23 History Folic Acid 1 mg PO DAILY 03/12/18 01/13/23 History metHOTREXate sodium [Methotrexate] 15 mg PO TU 03/12/18 01/13/23 History Ascorbic Acid [Vitamin C] 500 mg PO MOWEFR 01/13/23 01/13/23 History Cholecalciferol [Vitamin D3 (25 25 mcg PO DAILY 01/13/23 01/13/23 History Mcg = 1000 Iu)] Docusate [Colace] 100 mg PO MOWEFR 01/13/23 01/13/23 History Ezetimibe [Zetia] 10 mg PO DAILY 01/13/23 01/13/23 History Ferrous Sulfate [Feosol] 325 mg PO MOWEFR 01/13/23 01/13/23 History Loratadine [Claritin] 10 mg PO DAILY 01/13/23 01/13/23 History Omeprazole [PriLOSEC] 40 mg PO HS 01/13/23 01/13/23 History Tofacitinib Citrate [Xeljanz Xr] 11 mg PO DAILY 01/13/23 01/13/23 History Venlafaxine HCl [Effexor XR] 75 mg PO DAILY 01/13/23 01/13/23 History traZODone HCL [Desyrel] 100 mg PO HS 01/13/23 01/13/23 History Allergies Allergy/AdvReac Type Severity Reaction Status Date / Time Tetracyclines Allergy Unknown Verified 01/13/23 20:48 hydrochlorothiazide AdvReac Vomiting Verified 01/13/23 20:48 [From Zestoretic] lisinopril [From Zestoretic] AdvReac Vomiting Verified 01/13/23 20:48 Physical Examination - Vital Signs Vital Signs: Vital Signs Temp Pulse Pulse Resp BP BP Pulse Ox 01/14/23 08:40 120 H 16 01/14/23 07:06 100.1 F H 120 H 16 132/74 95 01/14/23 01:46 98.2 F 84 16 113/65 95 01/13/23 22:43 98.2 F 84 16 117/67 95 01/13/23 20:19 99.6 F 82 16 140/61 96 01/13/23 18:13 102.7 F H 114 H 18 141/65 95 Intake and Output 01/13/23 01/14/23 01/14/23 22:59 06:59 14:59 Other: Voiding Method Toilet # Voids 3 1 Weight 68.039 kg GENERAL: The patient is lying in bed and is not in acute distress. HENT: Supple neck. CHEST: The heart rate is regular rate rhythm. No edema in lowers. LUNG: Clear to auscultation bilaterally no wheezing noted throughout. Not labored breathing. ABDOMEN/GI: Bowel sounds present in all 4 quadrants. No tenderness to palpation throughout. NEUROLOGICAL: Somewhat limited. Higher mental function: The patient is awake, alert, oriented to self, stated she was in the hospital with options. She correctly stated the current year. Unable to tell me month. She correctly name few objects (pen and watch). She correctly named her daughter and current state. Patient is following simple commands. Language is limited but no aphasia. No neglect. Cranial nerves: The pupils are round, equal and reactive to light. Visual lei are full to confrontation throughout, patient has old purplish discoloration over the left aspect of sclera and daughter stated old. Ext raocular movement is intact no nystagmus is noted. The facial strength is normal throughout. Hearing is normal bilaterally to hand rub. Tongue is midline and moved [id number] without any difficulty. No dysarthria is noted. Shoulder shrug is normal bilaterally. Motor: The strength is lifting all extremities above gravity without focality. Normal tone and bulk. Patient is very restless and having repetitive abnormal head and body movement mimicking tardive dyskinesia. Cerebellum: Normal finger to nose bilaterally Sensation: Sensation is normal to touch throughout. Reflexes (right/left): 2+ throughout. Plantars are mute bilaterally. Results - Laboratory Findings CBC and BMP: 01/13/23 19:03 01/13/23 19:03 Abnormal Lab Findings: Abnormal Labs 01/13/23 01/13/23 01/13/23 19:03 19:03 19:03 RBC 3.19 L Hgb 10.2 L Hct 31.9 L MCV 100.3 H RDW 17.7 H Lymphocytes # 0.4 L D-Dimer Sodium 135 L Glucose 116 H Albumin 3.4 L Urine Protein 1+ H Urine Ketones Trace H Urine Blood Trace H Ur Leukocyte Esterase Trace H Urine RBC 13 H Urine WBC 6 H Calcium Oxalate Crystal Many H Urine Bacteria Rare H Hyaline Casts 4 H Urine Mucus Rare H 01/14/23 10:41 RBC Hgb Hct MCV RDW Lymphocytes # D-Dimer 1.90 H Sodium Glucose Albumin Urine Protein Urine Ketones Urine Blood Ur Leukocyte Esterase Urine RBC Urine WBC Calcium Oxalate Crystal Urine Bacteria Hyaline Casts Urine Mucus Assessment and Plan Assessment: This is a 67-year-old woman who presented emergency department because of altered mental status. The daughter she stated that recently the patient has been coughing and patient's grand-children has had URI recently. Encephalopathy seems due to underlying infection (has fever, wbc normal, supple neck) and there is a suspicion for ?pneumonia. Rule out encephalitis. Does not appear like meningitis Microcytic anemia unknown exact etiology Plan: I consulted anesthesiology team for lumbar puncture for concern of Bernardo encephalitis I feel it's more encephalitis that needs to be ruled out and it does not appear like meningitis. Ordered MRI of the brain with and without as well as routine EEG I changed to ceftriaxone from 2 gm every 24 hours to every 12 hours and started the patient on Acylovir 10mg/kg every 8 hours for meningoencephalitis coverage. I ordered ammonia level. Agree with TSH, vitamin B12 and folate order. Idea pulmonary team or consulted We'll defer the rest of medical management to primary team The plan was discussed with the patient's daughter was at bedside, primary team and her nurse. Thank you for the consultation Time with Patient: Greater than 30
[2023-01-14] MEDS ORDERED: LORazepam 2 MG/ML INJ IV STA (13:48)
--- NOTE | 2023-01-14 14:23 | P.CNPUL ---
History of Present Illness Consult date: 01/14/23 Reason for consult: dyspnea, pleural effusion History of present illness: This is a 67-year-old female patient, presented to the hospital because of an altered mental status. The daughter has noted that the patient has been having some increased cough and symptoms of respiratory tract infection. The patient's granddaughters has been having also URIs and subsequently the patient started having increased cough. She denies having any pleurisy or hemoptysis. The patient's family noted that she has been become progressively more confused. She did have chills and currently in the hospital she is running a fever. She came into the emergency and the patient underwent further investigation. Temperature max was 102.7. White cell count was 8. Covid 19 testing, influenza testing, and RSV testing were all negative. UA was negative. Chest x-ray showed a left lower lobe consolidation and pleural effusion. Computed tomography scan of the chest showed cerebral atrophy and chronic perivascular white matter disease changes. The patient was started on Rocephin and Zithromax in the pulmonary consultation was requested. She has remote history of smoking and currently she is a nonsmoker. No agitation. No seizure activity. Neurologic been involved based on underlying confusion. Note that she doesn't have any focal neurological deficits. Review of Systems Constitutional: Reports chills, Reports fever Eyes: denies as per HPI, denies blurred vision, denies bulging eye, denies decreased vision, denies diplopia, denies discharge, denies dry eye, denies irritation, denies itching, denies pain, denies photophobia, denies loss of peripheral vision, denies loss of vision, denies tunnel vision/blind spots Ears: deny: decreased hearing, ear discharge, earache, tinnitus Ears, nose, mouth and throat: Reports as per HPI Breasts: absent: as per HPI, change in shape, gynecomastia, masses, nipple discharge, pain, skin changes, swelling Cardiovascular: Reports dyspnea on exertion Respiratory: Reports cough, Reports dyspnea Gastrointestinal: Reports as per HPI Genitourinary: Reports as per HPI Menstruation: Reports as per HPI Musculoskeletal: Reports as per HPI Musculoskeletal: absent: ankle pain, ankle stiffness, ankle swelling, as per HPI, elbow pain, elbow stiffness, elbow swelling, foot pain, foot stiffness, f oot swelling, hand pain, hand stiffness, hand swelling, hip pain, hip stiffness, hip swelling, knee pain, knee stiffness, knee swelling, shoulder pain, shoulder stiffness, shoulder swelling, wrist pain, wrist stiffness, wrist swelling Integumentary: Reports as per HPI Neurological: Reports change in mentation Psychiatric: Reports as per HPI, Reports confusion Endocrine: Reports as per HPI Hematologic/Lymphatic: Reports as per HPI Allergic/Immunologic: Reports as per HPI Past Medical History Past Medical History: Fibromyalgia, GERD/Reflux, Rheumatoid Arthritis (RA) History of Any Multi-Drug Resistant Organisms: None Reported Past Surgical History: Breast Surgery, Cholecystectomy Additional Past Surgical History / Comment(s): Cervical surgery Past Psychological History: No Psychological Hx Reported Smoking Status: Former smoker Past Alcohol Use History: Rare Past Drug Use History: Marijuana Medications and Allergies Home Medications Medication Instructions Recorded Confirmed Type Aspirin EC [Ecotrin Low Dose] 81 mg PO DAILY 03/12/18 01/13/23 History Folic Acid 1 mg PO DAILY 03/12/18 01/13/23 History metHOTREXate sodium [Methotrexate] 15 mg PO TU 03/12/18 01/13/23 History Ascorbic Acid [Vitamin C] 500 mg PO MOWEFR 01/13/23 01/13/23 History Cholecalciferol [Vitamin D3 (25 25 mcg PO DAILY 01/13/23 01/13/23 History Mcg = 1000 Iu)] Docusate [Colace] 100 mg PO MOWEFR 01/13/23 01/13/23 History Ezetimibe [Zetia] 10 mg PO DAILY 01/13/23 01/13/23 History Ferrous Sulfate [Feosol] 325 mg PO MOWEFR 01/13/23 01/13/23 History Loratadine [Claritin] 10 mg PO DAILY 01/13/23 01/13/23 History Omeprazole [PriLOSEC] 40 mg PO 01/13/23 01/13/23 History Tofacitinib Citrate [Xeljanz Xr] 11 mg PO DAILY 01/13/23 01/13/23 History Venlafaxine HCl [Effexor XR] 75 mg PO DAILY 01/13/23 01/13/23 History traZODone HCL [Desyrel] 100 mg PO 01/13/23 01/13/23 History Allergies Allergy/AdvReac Type Severity Reaction Status Date / Time Tetracyclines Allergy Unknown Verified 01/13/23 20:48 hydrochlorothiazide AdvReac Vomiting Verified 01/13/23 20:48 [From Zestoretic] lisinopril [From Zestoretic] AdvReac Vomiting Verified 01/13/23 20:48 Physical Exam Vitals: Vital Signs Temp Pulse Pulse Resp BP BP Pulse Ox 01/14/23 12:50 98.9 F 98 16 119/64 96 01/14/23 08:40 120 H 16 01/14/23 07:06 100.1 F H 120 H 16 132/74 95 01/14/23 01:46 98.2 F 84 16 113/65 95 01/13/23 22:43 98.2 F 84 16 117/67 95 01/13/23 20:19 99.6 F 82 16 140/61 96 01/13/23 18:13 102.7 F H 114 H 18 141/65 95 Intake and Output 01/13/23 01/14/23 01/14/23 22:59 06:59 14:59 Other: Voiding Method Toilet # Voids 3 1 Weight 68.039 kg Gen. appearance the patient is calm and comfortable and currently she is on room air oxygen Head exam was generally normal. There was no scleral icterus or corneal arcus. Mucous membranes were moist. Neck was supple and without jugular venous distension, thyromegaly, or carotid bruits. Carotids were easily palpable bilaterally. There was no adenopathy. Lungs sounds show diminished breath on the left lung base along with dullness percussion Cardiac exam revealed the PMI to be normally situated and sized. The rhythm was regular and no extrasystoles were noted during several minutes of auscultation. The first and second heart sounds were normal and physiologic splitting of the second heart sound was noted. There were no murmurs, rubs, clicks, or gallops. Abdominal exam revealed normal bowel sounds. The abdomen was soft, non-tender, and without masses, organomegaly, or appreciable enlargement of the abdominal aorta. Examination of the extremities revealed easily palpable radial, femoral and pedal pulses. There was no cyanosis, clubbing or edema. Examination of the skin revealed no evidence of significant rashes, suspicious appearing nevi or other concerning lesions. Neurologically, the patient is alert and awake and communicating. She is still having some underlying confusion. Cranial nerves are intact. No focal neurological deficits. Results - Laboratory Findings CBC and BMP: 05/09/23 19:03 01/13/23 19:03 PT/INR, D-dimer PT 10.8 sec (9.0-12.0) 01/13/23 19:03 INR 1.0 (<1.2) 01/13/23 19:03 D-Dimer 1.90 mg/L FEU (<0.60) H 01/14/23 10:41 Abnormal lab findings: Abnormal Labs 01/13/23 01/13/23 01/13/23 19:03 19:03 19:03 RBC 3.19 L Hgb 10.2 L Hct 31.9 L MCV 100.3 H RDW 17.7 H Lymphocytes # 0.4 L D-Dimer Sodium 135 L Glucose 116 H Albumin 3.4 L Urine Protein 1+ H Urine Ketones Trace H Urine Blood Trace H Ur Leukocyte Esterase Trace H Urine RBC 13 H Urine WBC 6 H Calcium Oxalate Crystal Many H Urine Bacteria Rare H Hyaline Casts 4 H Urine Mucus Rare H 01/14/23 10:41 RBC Hgb Hct MCV RDW Lymphocytes # D-Dimer 1.90 H Sodium Glucose Albumin Urine Protein Urine Ketones Urine Blood Ur Leukocyte Esterase Urine RBC Urine WBC Calcium Oxalate Crystal Urine Bacteria Hyaline Casts Urine Mucus - Diagnostic Findings Chest x-ray: image reviewed Assessment and Plan Plan: Altered mentation currently under investigation. Rule out underlying metabolic encephalopathy. Patient has possibly an underlying pneumonia and this could've contributed to the altered mentation. CAT scan of the brain is negative. Neurology is on the case Acute febrile illness Acute left lower lobe consolidation and effusion, rule out parapneumonic effusion. Chronic immunosuppression with intake of methotrexate Limited arthritis Fibromyalgia Plan Continue current antibiotic coverage Blood cultures Pro calcitonin level Check CAT scan of the chest with contrast Possible thoracentesis based on the CAT scan findings
[2023-01-14] MEDS: ACYCLOVIR SODIUM 700 MG in SODIUM CHLORIDE 0.9% 100 ML IVPB SCH ×2 (15:12→22:09)
[2023-01-14] MEDS ORDERED: ACETAMINOPHEN TAB 500 MG TAB PO PRN (15:49)
--- NOTE | 2023-01-14 16:29 | CT ---
EXAMINATION TYPE: CT chest w con DATE OF EXAM: 01/14/2023 COMPARISON: 03/12/2014 HISTORY: hx of mass CT DLP: 610 mGycm, Automated exposure control for dose reduction was used. CONTRAST: Performed injected with 80 mL of Isovue 300. TECHNIQUE: Axial images were obtained at 5 mm thick sections. Reconstructed images are reviewed on [employer] computer in the coronal plane. FINDINGS: Portion of the thyroid visualized is normal. There is a left basilar effusion tracking along the left lateral chest. This may be loculated. No enlarged mediastinal or hilar adenopathy is evident. The ascending aorta diameter at the level o f the main pulmonary artery is 2.7 cm. The main pulmonary artery diameter at the bifurcation is 2.6 cm. Coronary artery calcification is noted. Limited CT sections are obtained through the upper abdomen. Abdomen is essentially unremarkable. IMPRESSIONS: 1. Small left pleural effusion
[2023-01-14] MEDS ORDERED: LORazepam 2 MG/ML INJ IV PRN (16:45)
[2023-01-14] MEDS ORDERED: IBUPROFEN 600 MG TAB PO PRN ×2 (17:05→19:59)
--- NOTE | 2023-01-14 18:37 | MR ---
EXAMINATION TYPE: MR brain wo/w con DATE OF EXAM: 01/14/2023 6:02 PM CLINICAL INDICATION:Female, 67 years old with history of confusion of unknown etiology; Confusion of unknown etiology COMPARISON: CT brain 01/13/2023 TECHNIQUE: Multi planar, multi sequence imaging was performed through the brain including: T1, T2, In version recovery, susceptibility weighted imaging and gradient echo imaging and Diffusion weighted im aging. The patient was then given intravenous contrast and multi planar, T1 fat-saturation images wer e obtained. IV Contrast: 7 cc Gadavist FINDINGS: Motion artifact limits evaluation. Fast protocol used. Mild atrophy changes proportional di lation of ventricular system. The duran-white junctions, ventricular system, basal cisterns appear unr emarkable. Diffusion-weighted imaging shows no evidence of restricted diffusion to suggest acute/suba cute infarct. Intracranial arterial flow voids are maintained. Midline structures show no abnormality . Scattered foci and confluent areas of by your of high T2 signal intensity are seen within the periv entricular white matter. After administration of gadolinium, no abnormal enhancement is seen. The bone marrow signal is within normal limits. Paranasal sinuses and mastoid air cells: No significant paranasal sinus disease. Visualized orbits: Bilateral aphakia IMPRESSION: 1. No evidence of intracranial mass, acute/subacute infarct, or abnormal enhancement. 2. Nonspecific white matter changes, likely related to small vessel ischemic disease
[2023-01-14] MEDS: AZITHROMYCIN 500 MG TAB PO SCH (20:25)
[2023-01-14] MEDS: PANTOPRAZOLE 40 MG TABLET PO SCH (20:25)
--- NOTE | 2023-01-14 20:53 | EEG ---
ELECTROENCEPHALOGRAM REPORT CLINICAL HISTORY: This is a 67-year-old woman with altered mental status. The video EEG is obtained to evaluate for seizure epileptiform activity. RELEVANT MEDICATION: The patient is not on any antiseizure medication. EEG TYPE: A routine 21-channel EEG is performed with video using the 10/20 electrode placement system. DESCRIPTION: Wakefulness is only obtained. The background consists of [id number] voltage of 6 to 7 hertz activity that is well modulated and well sustained. There was no physiological stage 2 sleep architecture. There is no focal slowing. There is multiple episodic diffuse myogenic artifact. Interictal and ictal is none. ACTIVATION PROCEDURE: Photic stimulation and hyperventilation is not performed. CLINICAL INTERPRETATION: This is an abnormal routine EEG. The background slowing is suggestive of mild encephalopathy. Otherwise, there is no focal slowing, epileptiform discharge, or seizure on the EEG. Clinical correlation is recommended. SHEKHAR / RENATA: [id number] / MTDD
[2023-01-14] MEDS ORDERED: QUEtiapine 25 MG TAB PO SCH (21:00)
[2023-01-15] MEDS: ACYCLOVIR SODIUM 700 MG in SODIUM CHLORIDE 0.9% 100 ML IVPB SCH ×3 (05:15→21:47)
--- NOTE | 2023-01-15 07:09 | P.CONS ---
History of Present Illness - Reason for Consult Consult date: 01/14/23 - History of Present Illness Patient is a 67-year-old female with a past medical history significant for rheumatoid arthritis GERD fibromyalgia presenting to the ER last evening for evaluation of mental status changes as apparently the patient was acting a bit differently did have some dyskinesia and a fever symptom has been going on for a day or 2 before presentation to the hospital patient did have some headache no significant URI symptoms denies any chest pain she did have a cough mild to moderate intensity but not bring up any sputum patient denies having any nausea or vomiting abdominal pain or diarrhea has been complaining of some burning of urine with the same with the patient was evaluated on pres entation to the hospital patient did have a fever of 102 degrees for night patient was tachycardic heart rate in the 120s not hypoxic or need for supplemental oxygen patient did have a normal white count with lymphopenia kidney function has been normal liver enzymes are normal did have a positive UA influenza RSV and COVID testing was negative patient did have a CT of the brain that was negative for any bleed chest x-ray small to moderate left effusion patient was started on Rocephin and infectious disease was consulted for further management of antibiotic therapy Past Medical History Past Medical History: Fibromyalgia, GERD/Reflux, Rheumatoid Arthritis (RA) History of Any Multi-Drug Resistant Organisms: None Reported Past Surgical History: Breast Surgery, Cholecystectomy Additional Past Surgical History / Comment(s): Cervical surgery Past Psychological History: No Psychological Hx Reported Smoking Status: Former smoker Past Alcohol Use History: Rare Past Drug Use History: Marijuana Medications and Allergies Home Medications Medication Instructions Recorded Confirmed Type Aspirin EC [Ecotrin Low Dose] 81 mg PO DAILY 03/12/18 01/13/23 History Folic Acid 1 mg PO DAILY 03/12/18 01/13/23 History metHOTREXate sodium [Methotrexate] 15 mg PO TU 03/12/18 01/13/23 History Ascorbic Acid [Vitamin C] 500 mg PO MOWEFR 01/13/23 01/13/23 History Cholecalciferol [Vitamin D3 (25 25 mcg PO DAILY 01/13/23 01/13/23 History Mcg = 1000 Iu)] Docusate [Colace] 100 mg PO MOWEFR 01/13/23 01/13/23 History Ezetimibe [Zetia] 10 mg PO DAILY 01/13/23 01/13/23 History Ferrous Sulfate [Feosol] 325 mg PO MOWEFR 01/13/23 01/13/23 History Loratadine [Claritin] 10 mg PO DAILY 01/13/23 01/13/23 History Omeprazole [PriLOSEC] 40 mg PO HS 01/13/23 01/13/23 History Tofacitinib Citrate [Xeljanz Xr] 11 mg PO DAILY 01/13/23 01/13/23 History Venlafaxine HCl [Effexor XR] 75 mg PO DAILY 01/13/23 01/13/23 History traZODone HCL [Desyrel] 100 mg PO HS 01/13/23 01/13/23 History Allergies Allergy/AdvReac Type Severity Reaction Status Date / Time Tetracyclines Allergy Unknown Verified 01/13/23 20:48 hydrochlorothiazide AdvReac Vomiting Verified 01/13/23 20:48 [From Zestoretic] lisinopril [From Zestoretic] AdvReac Vomiting Verified 01/13/23 20:48 Physical Exam Vitals: Vital Signs Temp Pulse Pulse Resp BP BP Pulse Ox 01/14/23 08:40 120 H 16 01/14/23 07:06 100.1 F H 120 H 16 132/74 95 01/14/23 01:46 98.2 F 84 16 113/65 95 01/13/23 22:43 98.2 F 84 16 117/67 95 01/13/23 20:19 99.6 F 82 16 140/61 96 01/13/23 18:13 102.7 F H 114 H 18 141/65 95 Intake and Output 01/13/23 01/14/23 01/14/23 22:59 06:59 14:59 Other: Voiding Method Toilet # Voids 3 1 Weight 68.039 kg Results CBC & Chem 7: 01/13/23 19:03 01/13/23 19:03 Labs: Abnormal Lab Results - Last 24 Hours (Table) 01/13/23 01/13/23 01/13/23 Range/Units 19:03 19:03 19:03 RBC 3.19 L (3.80-5.40) m/uL Hgb 10.2 L (11.4-16.0) gm/dL Hct 31.9 L (34.0-46.0) % MCV 100.3 H (80.0-100.0) fL RDW 17.7 H (11.5-15.5) % Lymphocytes # 0.4 L (1.0-4.8) k/uL D-Dimer (<0.60) mg/L FEU Sodium 135 L (137-145) mmol/L Glucose 116 H (74-99) mg/dL Albumin 3.4 L (3.5-5.0) g/dL Urine Protein 1+ H (Negative) Urine Ketones Trace H (Negative) Urine Blood Trace H (Negative) Ur Leukocyte Esterase Trace H (Negative) Urine RBC 13 H (0-5) /hpf Urine WBC 6 H (0-5) /hpf Calcium Oxalate Crystal Many H (None) /hpf Urine Bacteria Rare H (None) /hpf Hyaline Casts 4 H (0-2) /lpf Urine Mucus Rare H (None) /hpf 01/14/23 Range/Units 10:41 RBC (3.80-5.40) m/uL Hgb (11.4-16.0) gm/dL Hct (34.0-46.0) % MCV (80.0-100.0) fL RDW (11.5-15.5) % Lymphocytes # (1.0-4.8) k/uL D-Dimer 1.90 H (<0.60) mg/L FEU Sodium (137-145) mmol/L Glucose (74-99) mg/dL Albumin (3.5-5.0) g/dL Urine Protein (Negative) Urine Ketones (Negative) Urine Blood (Negative) Ur Leukocyte Esterase (Negative) Urine RBC (0-5) /hpf Urine WBC (0-5) /hpf Calcium Oxalate Crystal (None) /hpf Urine Bacteria (None) /hpf Hyaline Casts (0-2) /lpf Urine Mucus (None) /hpf Assessment and Plan Plan: 1-Patient was in the hospital with sepsis in this patient who did have a fever tachycardia did have some respiratory symptoms with evidence of left-sided effusion possible pneumonia and parapneumonic effusion likely community-acquired pathogen complicated infection such as loculated effusion not entirely excluded 2-we will obtain a CRP procalcitonin sputum for Gram stain and culture 3-patient to continue Rocephin 2 g daily We will follow on clinical condition and cultures to further adjust medication if needed Thank you for this consultation we will follow the patient along with you Time with Patient: Greater than 30
[2023-01-15] MEDS: DOCUSATE 100 MG CAP PO SCH (09:25)
[2023-01-15] MEDS: EZETIMIBE 10 MG TAB PO SCH (09:25)
[2023-01-15] MEDS: ASPIRIN 81 MG PO SCH (09:26)
[2023-01-15] MEDS: CHOLECALCIFEROL 25 MCG (1000 IU) TABLET PO SCH (09:26)
[2023-01-15] MEDS: LORATADINE 10 MG TAB PO SCH (09:26)
[2023-01-15] MEDS: FOLIC ACID 1 MG TAB PO SCH (09:27)
[2023-01-15] MEDS: ACETAMINOPHEN TAB 500 MG TAB PO PRN ×2 (10:48→17:42)
[2023-01-15 11:41] LABS: ALT 14 U/L (8-44); AST 28 U/L (13-35); African American GFR (CKD) 56.6 (60.0-200.0); Albumin 3.1 g/dL (3.8-4.9); Alkaline Phosphatase 55 U/L (41-126); BUN/Creat Ratio 10.52 Ratio (12.00-20.00); Blood Urea Nitrogen 12.1 mg/dL (9.0-27.0); Calcium 8.6 mg/dL (8.7-10.3); Carbon Dioxide 21.5 mmol/L (20.0-27.5); Chloride 105 mmol/L (96-109); Globulin 2.8 g/dL (1.6-3.3); Glucose 93 mg/dL (70-110); Non-African American GFR(CKD) 48.9 (60.0-200.0); Potassium 3.7 mmol/L (3.5-5.5); Sodium 139 mmol/L (135-145); Total Bilirubin <0.15 mg/dL (0.30-1.20); Total Protein 5.9 g/dL (6.2-8.2)
[2023-01-15 12:20] LABS: Basophils # (A) 0.04 X 10*3/uL (0.00-0.10); Basophils % (A) 0.4 %; Eosinophils % (A) 1.8 %; HCT 24.3 % (37.2-46.3); HGB 7.8 g/dL (12.0-15.0); Immature Grans, Automated 1.5 %; Lymphocytes # (A) 0.25 X 10*3/uL (0.90-5.00); Lymphocytes % (A) 2.2 %; MCH 31.7 pg (27.0-32.0); MCHC 32.1 g/dL (32.0-37.0); MCV 98.8 fL (80.0-97.0); Mean Platelet Volume 9.8 fL (9.5-12.2); Monocytes # (A) 1.35 X 10*3/uL (0.20-1.00); Monocytes % (A) 12.1 %; NRBC Per 100 WBC 0.2 /100 WBCS (0.0-0.0); Neutrophils # (A) 9.16 X 10*3/uL (1.80-7.70); Platelet Count 246 X 10*3/uL (140-440); RBC 2.46 X 10*6/uL (4.10-5.20); RDW 18.1 % (11.5-14.5); WBC 11.17 X 10*3/uL (4.50-10.00)
--- NOTE | 2023-01-15 12:30 | P.PCN ---
Date of Procedure: 01/15/23 Description of Procedure: Procedure: 1. Lumbar puncture for CSF collection PREOPERATIVE DIAGNOSIS: Altered mental status POSTOPERATIVE DIAGNOSIS: Altered mental status, rule out meningitis/ encephalitis SURGEON: Cindy Hernandez ANESTHESIA: Local with 1% lidocaine, and IV sedation : None EBL: None. Specimen removed: 2-3 mL of CSF in each collecting tube X4 ( 10 ML) PROCEDURE INDICATION: The patient had history of altered mental status her neurologist wants to rule out meningitis/encephalitis. Computed tomography scan and MRI of the brain reviewed., . Consulted for lumbar puncture for CSF collection send it for analysis. PROCEDURE DESCRIPTION: The patient was seen and identified. Risks, benefits, complications, and alternatives were discussed with the patient. The patient agreed to proceed with the procedure and signed the consent, and vital signs were stable. Patient was taken to the procedure area, and time out was completed. The patient was placed in sitting position on procedure. . The lumbosacral area was prepped and draped in the usual sterile fashion. Critical pause was taken. Vital signs were closely monitored during the procedure. Posterior superior iliac crest landmarks was identified . The midline lumbar space also identified. Approximately at the level of L4-L5 interspinous space, skin and deeper tissues were localized with 3 mL of 1% lidocaine. Using a 22 gauge 3.5 spinal needle entered into subarachnoid space, with 1 attempt. Clear CSF came out of the spinal needle. 2- 3 mL of CSF fluid collected in each tube 4, a total of 10 ML of CSF collected. Needle was withdrawn intact, skin was cleansed, and bandages were applied. COMPLICATIONS: None. DISPOSITION / PLANS: The patient was placed in a sitting position and transferred to the patient inpatient room. Recommended to drink 1-2 L of fluid today, and also recommended to lay down for a couple of hours.
--- NOTE | 2023-01-15 13:23 | P.PN ---
Progress Note - Text Progress Note Date: 01/15/23 Interval History: Patient was seen lying in bed and was directable and agreeable to speak with food writer in her room. Present in the room as the patient's daughter Arlene. The patient is currently alert and oriented to person and place but not to time. She is currently not endorsing any suicidal or homicidal ideation, intention, and/or plan. She is not reporting any auditory or visual hallucinations. She reports no paranoia or other delusions. She continues to be quite restless and has difficulty with abstraction during the Mini-Mental Status Examination. She is currently being evaluated for possible encephalitis/meningitis. Patient's daughter reports that the patient has had a previous episode of altered mental status such as this when she was septic years ago. Mental Status Exam: General Appearance: Patient appears to be stated age is alert, directable, and cooperative. Behavior: Patient continues to display psychomotor agitation however she is less restless than yesterday. Speech: Patient's speech is fluent and nonpressured. Mood/Affect: Mood is "alright," affect is pleasantly confused. Suicidality/Homicidality: Patient denies having any suicidal or homicidal ideation intent or plan. Perceptions: Patient denies any visual hallucinations and denies any auditory hallucinations Though content/process: There is no evidence of any delusional thought content and thought process is linear and goal-directed. Memory and concentration: Grossly poor. She is alert and oriented to person and place. Judgment and insight: Improving mildly -Patient had difficulty with serial sevens, abstraction, and short-term recall. Assessment Encephalopathy - likely secondary to underlying infection Plan: -Continue medical management and evaluation. -At this time patient DOES NOT meet criteria for inpatient psychiatric admission. The patient is currently not presenting with imminent risk of harm to self or others. Change in mentation likely secondary to pneumonia. -Delirium precautions recommended with patient including - avoiding use of narcotics and [employer] sedatives, limit anticholinergic medications when possible, frequent re-orientation, minimize use of restraints, open window shades during the day and close them at night -Would recommend the following medication changes/additions: We will increase her seroquel 25 mg by mouth at bedtime for altered mental status/psychosis. Hold Effexor at this time. We will initiate with the patient is back at baseline. -TSH, B12, folate ordered and reviewed. Within normal limits. Agree with ammonia, LP. -Will continue to follow along
--- NOTE | 2023-01-15 13:30 | US ---
EXAMINATION TYPE: US venous doppler duplex LE DATE OF EXAM: 01/15/2023 1:18 PM COMPARISON: NONE CLINICAL INDICATION: Female, 67 years old with history of dvt; bilateral leg pain. SIDE PERFORMED: Bilateral TECHNIQUE: The lower extremity deep venous system is examined utilizing real time linear array sonog di with graded compression, doppler sonography and color-flow sonography. VESSELS IMAGED: Common Femoral Vein Deep Femoral Vein Greater Saphenous Vein * Femoral Vein Popliteal Vein Small Saphenous Vein * Proximal Calf Veins (* superficial vessels) Right Leg: no evidence of DVT as visualized Left Leg: no evidence of DVT as visualized Grayscale, color doppler, spectral doppler imaging performed of the deep veins of the bilateral lower extremities. There is normal flow, compressibility, vascular waveforms. IMPRESSION: No ultrasound evidence for acute DVT in either lower extremity.
--- NOTE | 2023-01-15 14:27 | PN ---
PROGRESS NOTE DATE OF SERVICE: 01/15/2023 SUBJECTIVE: This is a 67-year-old woman who was admitted with shortness of breath and cough and confusion, abnormal movements, had possibly bilateral pneumonia. The patient The patient's MRI did not show acute abnormality. The patient is on IV antibiotics. The patient is still confused. PAST MEDICAL HISTORY: Reviewed. REVIEW OF SYSTEMS: Could not be taken. CURRENT MEDICATIONS: Reviewed include Rocephin. Doses and rest of medications noted. PHYSICAL EXAMINATION: VITAL SIGNS: Pulse is 115, blood pressure 128/70, respiration 18. CHEST: A few scattered rhonchi and crackles. ABDOMEN: Soft, nontender. LEGS: No edema. NERVOUS SYSTEM: Diffusely weak. LABORATORY DATA: Labs are reviewed. CMP not available. Procalcitonin 0.76. ASSESSMENT: 1. Acute bilateral pneumonia with left-sided pleural effusion, possibly atypical or viral pneumonia. 2. Change in mental status, acute metabolic encephalopathy, possibly secondary to sepsis. 3. Gastroesophageal reflux disease. 4. Rheumatoid arthritis and immunosuppressed. 5. History of cholecystectomy. 6. Multiple medical issues. RECOMMENDATIONS: I recommend to continue current medications. Continue symptomatic treatment. Otherwise, continue the antibiotics. Closely follow with Pulmonary as well as Infectious Disease. DVT prophylaxis. Resume the home medications. Prognosis guarded because of multiple complex medical issues and further recommendations to follow. MMODL / IJN: [id number] / MTDD
--- NOTE | 2023-01-15 14:37 | P.PN ---
Subjective Progress Note Date: 01/15/23 Principal diagnosis: Fever question of pneumonia Patient is a 67-year-old female with a past medical history significant for rheumatoid arthritis GERD fibromyalgia presenting to the ER last evening for evaluation of mental status changes, patient was noticed to be febri le and had did have a possible left lower lobe pneumonia. On today's evaluation that is 01/15/2023, the patient is afebrile, the patient is a breathing comfortably on room air, patient denies having any headache and the patient is aware that she is at [facility] with chest pain shortness of breath did have a cough productionnoabdominalpainnodiarrhea Objective - Vital Signs Vital signs: Vital Signs Temp 98.3 F 01/15/23 11:57 Pulse 98 01/15/23 11:57 Resp 18 01/15/23 11:57 BP 117/66 01/15/23 11:57 Pulse Ox 92 L 01/15/23 11:57 FiO2 Intake & Output 01/14/23 01/15/23 01/15/23 18:59 06:59 18:59 Other: Voiding Method Toilet Toilet # Voids 2 1 1 - Exam GENERAL DESCRIPTION: An elderly female lying in bed in no distress RESPIRATORY SYSTEM: Unlabored breathing , decreased breath sounds at bases HEART: S1 S2 regular rate and rhythm , ABDOMEN: Soft , no tenderness EXTREMITIES: No edema feet - Labs CBC & Chem 7: 01/15/23 06:50 01/15/23 06:50 Labs: Abnormal Lab Results - Last 24 Hours (Table) 01/14/23 01/15/23 01/15/23 Range/Units 15:03 06:50 06:50 WBC 11.17 H (4.50-10.00) X 10*3/uL RBC 2.46 L (4.10-5.20) X 10*6/uL Hgb 7.8 L (12.0-15.0) g/dL Hct 24.3 L (37.2-46.3) % MCV 98.8 H (80.0-97.0) fL RDW 18.1 H (11.5-14.5) % Absolute Nucleated RBC 0.02 H (0.00-0.00) X 10*3/uL Immature Gran # 0.17 H (0.00-0.04) X 10*3/uL Neutrophils # 9.16 H (1.80-7.70) X 10*3/uL Lymphocytes # 0.25 L (0.90-5.00) X 10*3/uL Monocytes # 1.35 H (0.20-1.00) X 10*3/uL NRBC/100 WBC Diff 0.2 H (0.0-0.0) /100 WBCS Est GFR (CKD-EPI)AfAm 56.6 L (60.0-200.0) Est GFR (CKD-EPI)NonAf 48.9 L (60.0-200.0) BUN/Creatinine Ratio 10.52 L (12.00-20.00) Ratio Calcium 8.6 L (8.7-10.3) mg/dL Total Bilirubin <0.15 L (0.30-1.20) mg/dL Total Protein 5.9 L (6.2-8.2) g/dL Albumin 3.1 L (3.8-4.9) g/dL Albumin/Globulin Ratio 1.10 L (1.60-3.17) g/dL Procalcitonin 0.76 H (0.02-0.09) ng/mL Microbiology - Last 24 Hours (Table) 01/13/23 18:50 Blood Culture - Preliminary Blood 01/13/23 19:05 Blood Culture - Preliminary Blood Assessment and Plan Plan: 1-Patient was in the hospital with sepsis in this patient who did have a fever tachycardia did have some respiratory symptoms with evidence of left-sided effusion possible pneumonia and parapneumonic effusion likely community-acquired pathogen complicated infection such as loculated effusion not entirely excluded, patient did have a CT of the chest with tissues small left effusion which may be loculated by radiology report 2-patient did have procalcitonin of 0.76 3-patient to continue Rocephin 2 g daily while waiting for the cultures to finalize Time with Patient: Less than 30
--- NOTE | 2023-01-15 14:38 | P.PN ---
Subjective Progress Note Date: 01/15/23 This is a 67-year-old female patient, presented to the hospital because of an altered mental status. The daughter has noted that the patient has been having some increased cough and symptoms of respiratory tract infection. The patient's granddaughters has been having also URIs and subsequently the patient started having increased cough. She denies having any pleurisy or hemoptysis. The patient's family noted that she has been become progressively more confused. She did have chills and currently in the hospital she is running a fever. She came into the emergency and the patient underwent further investigation. Temperature max was 102.7. White cell count was 8. Covid 19 testing, influenza testing, and RSV testing were all negative. UA was negative. Chest x-ray showed a left lower lobe consolidation and pleural effusion. Computed tomography scan of the chest showed cerebral atrophy and chronic perivascular white matter disease changes. The patient was started on Rocephin and Zithromax in the pulmonary consultation was requested. She has remote history of smoking and currently she is a nonsmoker. No agitation. No seizure activity. Neurologic been involved based on underlying confusion. Note that she doesn't have any focal neurological deficits. On 01/15/2023, she is being seen in follow-up. The patient was hospitalized for altered mentation. Her mentation gradually improving. Carotids on the case. The patient had an MRI of the brain that showed no acute abnormalities. There was some nonspecific white matter changes related to small vessel ischemic disease. EEG was abnormal with background slowing suggestive of mild encephalopathy. As mentioned, there was a concern of an underlying pneumonia. There was is also a left-sided pleural effusion. A CAT scan of chest was done yesterday showed a small loculated left-sided pleural effusion without any mediastinal lymphadenopathy. No other acute pulmonary abnormalities were noted. The patient remains on room air oxygen. Breath sounds are improved on today's evaluation of the left. The white cell count 11 hemoglobin is at 7.8 and there is a 2 g up in hemoglobin since yesterday without evidence of any GI bleed. D- dimer was at 1.9 and the Doppler of the rectum is were negative. BUN is at 12 a creatinine 1.2 and sodium levels of 139. Calcium is at 8.6. LFTs are normal. Pro-calcitonin level is at 0.7. Objective - Vital Signs Vital signs: Vital Signs Temp 98.3 F 01/15/23 11:57 Pulse 98 01/15/23 11:57 Resp 18 01/15/23 11:57 BP 117/66 01/15/23 11:57 Pulse Ox 92 L 01/15/23 11:57 FiO2 Intake & Output 01/14/23 01/15/23 01/15/23 18:59 06:59 18:59 Other: Voiding Method Toilet Toilet # Voids 2 1 1 - Exam Gen. appearance the patient is calm and comfortable and currently she is on room air oxygen Head exam was generally normal. There was no scleral icterus or corneal arcus. Mucous membranes were moist. Neck was supple and without jugular venous distension, thyromegaly, or carotid bruits. Carotids were easily palpable bilaterally. There was no adenopathy. Lungs sounds show diminished breath on the left lung base along with dullness percussion Cardiac exam revealed the PMI to be normally situated and sized. The rhythm was regular and no extrasystoles were noted during several minutes of auscultation. The first and second heart sounds were normal and physiologic splitting of the second heart sound was noted. There were no murmurs, rubs, clicks, or gallops. Abdominal exam revealed normal bowel sounds. The abdomen was soft, non-tender, and without masses, organomegaly, or appreciable enlargement of the abdominal aorta. Examination of the extremities revealed easily palpable radial, femoral and pedal pulses. There was no cyanosis, clubbing or edema. Examination of the skin revealed no evidence of significant rashes, suspicious appearing nevi or other concerning lesions. Neurologically, the patient is alert and awake and communicating. She is still having some underlying confusion. Cranial nerves are intact. No focal neurological deficits. - Labs CBC & Chem 7: 01/15/23 06:50 01/15/23 06:50 Labs: Abnormal Lab Results - Last 24 Hours (Table) 01/14/23 01/15/23 01/15/23 Range/Units 15:03 06:50 06:50 WBC 11.17 H (4.50-10.00) X 10*3/uL RBC 2.46 L (4.10-5.20) X 10*6/uL Hgb 7.8 L (12.0-15.0) g/dL Hct 24.3 L (37.2-46.3) % MCV 98.8 H (80.0-97.0) fL RDW 18.1 H (11.5-14.5) % Absolute Nucleated RBC 0.02 H (0.00-0.00) X 10*3/uL Immature Gran # 0.17 H (0.00-0.04) X 10*3/uL Neutrophils # 9.16 H (1.80-7.70) X 10*3/uL Lymphocytes # 0.25 L (0.90-5.00) X 10*3/uL Monocytes # 1.35 H (0.20-1.00) X 10*3/uL NRBC/100 WBC Diff 0.2 H (0.0-0.0) /100 WBCS Est GFR (CKD-EPI)AfAm 56.6 L (60.0-200.0) Est GFR (CKD-EPI)NonAf 48.9 L (60.0-200.0) BUN/Creatinine Ratio 10.52 L (12.00-20.00) Ratio Calcium 8.6 L (8.7-10.3) mg/dL Total Bilirubin <0.15 L (0.30-1.20) mg/dL Total Protein 5.9 L (6.2-8.2) g/dL Albumin 3.1 L (3.8-4.9) g/dL Albumin/Globulin Ratio 1.10 L (1.60-3.17) g/dL Procalcitonin 0.76 H (0.02-0.09) ng/mL Microbiology - Last 24 Hours (Table) 01/13/23 18:50 Blood Culture - Preliminary Blood 01/13/23 19:05 Blood Culture - Preliminary Blood Assessment and Plan Plan: Altered mentation currently under investigation. Rule out underlying metabolic encephalopathy. Patient has possibly an underlying pneumonia and this could've contributed to the altered mentation. CAT scan of the brain is negative. Neurology is on the case, MRI of the brain is negative, EEG showing mild encephalopathy. Neurologically is improving. The patient is being seen by michael silver. Acute febrile illness, currently afebrile Acute hypoxic respiratory failure, currently on room air oxygen with a pulse ox of 92% Left-sided pleural effusion, with small loculation, consider parapneumonic effusion Chronic immunosuppression with intake of methotrexate Limited arthritis Fibromyalgia Plan Obtain ultrasound the left chest wall or markings We'll consider left-sided thoracentesis Continue current antibiotic coverage Blood cultures are negative thus far Pro calcitonin level is mildly elevated at 0.76 Continue Rocephin and Zithromax We'll continue to follow
--- NOTE | 2023-01-15 15:09 | P.PN ---
Subjective Progress Note Date: 01/15/23 The patient seen at bedside is accompanied by the patient's daughter who states patient is about the same. She is more responsive but continues to have abnormal movement. She she denied that the patient was on any antipsychotic prior to all this. She stated that this all started upon the patient having fever with underlying office. Objective - Vital Signs Vital signs: Vital Signs Temp 98.3 F 01/15/23 11:57 Pulse 98 01/15/23 11:57 Resp 18 01/15/23 11:57 BP 117/66 01/15/23 11:57 Pulse Ox 92 L 01/15/23 11:57 FiO2 Intake & Output 01/14/23 01/15/23 01/15/23 18:59 06:59 18:59 Other: Voiding Method Toilet Toilet # Voids 2 1 1 - Exam GENERAL: The patient is lying in bed and is not in acute distress. HENT: Supple neck. NEUROLOGICAL: Somewhat limited. Higher mental function: The patient is awake, alert, oriented to self, she correctly stated that she was in the hospital. She is able to state the current year but not to me the month. Patient is following simple commands. Language is limited but no aphasia. No neglect. Cranial nerves: The pupils are round, equal and reactive to light. Visual lei are full to confrontation throughout, patient has old purplish discoloration over the left aspect of sclera and daughter stated old. Extraocular movement is intact no nystagmus is noted. The facial strength is normal throughout. Hearing is normal bilaterally to hand rub. Tongue is midline and moved [id number] without any difficulty. No dysarthria is noted. Shoulder shrug is normal bilaterally. Motor: The strength is lifting all extremities above gravity without focality. Normal tone and bulk. Patient is very restless and having repetitive abnormal head and body movement of entire body. Cerebellum: Normal finger to nose bilaterally Sensation: Sensation is normal to touch throughout. Reflexes (right/left): 2+ throughout. Plantars are mute bilaterally. Some other workup during his hospital visit consisted of: Initial temperature is 102.7 Fahrenheit --resolved. White blood cell is 8.0 thousand. MCV is 100.3. Vitamin B12 is 450 Folate was 20.9 TSH is 2.0 to AST and ALT is within normal limits. SARS-CoV-2 PCR is not detected. Influenza A/B and RSV are negative. Urine Analysis I feel is not suggestive of underlying ureter tract infection. Chest x-rays reported a similar moderate size left pleural effusion with adjacent airspace opacity which may represent atelectasis versus pneumonia. CT of the head is reported as atrophy with chronic appearing periventricular white matter ischemic type changes. Follow-up MRI can be performed as clinically indicated. Routine EEG is abnormal. The back on slowing suggestive of mild encephalopathy. Otherwise there is no focal slowing, epileptiform discharges or seizure on the EEG. MRI the brain is reported as no evidence of intracranial mass, acute/subacute infarct or abnormal enhancement. Nonspecific white matter changes, likely related to small vessel ischemic disease. - Labs CBC & Chem 7: 01/15/23 06:50 01/15/23 06:50 Labs: Abnormal Lab Results - Last 24 Hours (Table) 01/14/23 01/15/23 01/15/23 Range/Units 15:03 06:50 06:50 WBC 11.17 H (4.50-10.00) X 10*3/uL RBC 2.46 L (4.10-5.20) X 10*6/uL Hgb 7.8 L (12.0-15.0) g/dL Hct 24.3 L (37.2-46.3) % MCV 98.8 H (80.0-97.0) fL RDW 18.1 H (11.5-14.5) % Absolute Nucleated RBC 0.02 H (0.00-0.00) X 10*3/uL Immature Gran # 0.17 H (0.00-0.04) X 10*3/uL Neutrophils # 9.16 H (1.80-7.70) X 10*3/uL Lymphocytes # 0.25 L (0.90-5.00) X 10*3/uL Monocytes # 1.35 H (0.20-1.00) X 10*3/uL NRBC/100 WBC Diff 0.2 H (0.0-0.0) /100 WBCS Est GFR (CKD-EPI)AfAm 56.6 L (60.0-200.0) Est GFR (CKD-EPI)NonAf 48.9 L (60.0-200.0) BUN/Creatinine Ratio 10.52 L (12.00-20.00) Ratio Calcium 8.6 L (8.7-10.3) mg/dL Total Bilirubin <0.15 L (0.30-1.20) mg/dL Total Protein 5.9 L (6.2-8.2) g/dL Albumin 3.1 L (3.8-4.9) g/dL Albumin/Globulin Ratio 1.10 L (1.60-3.17) g/dL Procalcitonin 0.76 H (0.02-0.09) ng/mL Microbiology - Last 24 Hours (Table) 01/13/23 18:50 Blood Culture - Preliminary Blood 01/13/23 19:05 Blood Culture - Preliminary Blood Assessment and Plan Assessment: This is a 67-year-old woman who presented emergency department because of altered mental status. The daughter she stated that recently the patient has been coughing and patient's grand-children has had URI recently. Encephalopathy seems due to underlying infection (has fever, wbc normal, supple neck) and there is a suspicion for ?pneumonia. Rule out encephalitis. Does not appear like meningitis Acute Chorea--unknown exact cause. One of consideration is due to underlying pneumonia (can be seen in Group A strep). Per daughter started after her recent fever with URI. Was not on any antidopaminergic drugs in the past. Plan: I consulted anesthesiology team for lumbar puncture for concern of Bernardo encephalitis I feel it's more encephalitis that needs to be ruled out and it d oes not appear like meningitis. 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 For her Chorea, I ordered streptolysin O ab, Streptococcus group A culture, copper, zinc level as well as hemoglobin A1c. ID and pulmonary team or consulted Psychiatry team is also consulted. They have her on Seroquel 25 mg daily at bedtime. We'll defer the rest of medical management to primary team The plan was discussed with the patient's daughter was at bedside, primary team N.P. Time with Patient: Less than 30
[2023-01-15 16:58] LABS: Glucose,Whole Blood 100 mg/dL (70-110)
[2023-01-15] MEDS: HEPARIN SODIUM,PORCINE/PF 5,000 UNIT/0.5 ML SYRINGE SQ SCH ×2 (17:43→21:07)
[2023-01-15] MEDS: risperiDONE 1 MG TAB PO SCH (18:38)
--- NOTE | 2023-01-15 19:11 | US ---
EXAMINATION TYPE: US chest DATE OF EXAM: 01/15/2023 COMPARISON: CT of chest today CLINICAL INDICATION: Female, 67 years old with history of Left-sided pleural effusion with markings; Left sided pleural effusion TECHNIQUE: Targeted ultrasound of the posterior lower left hemithorax Only left side scanned due to A Team being called into room. EXAM MEASUREMENTS: Left Pleural Effusion pocket size: 11.4 cm Left skin surface to fluid distance: 2.2 cm Left side marked for possible thoracentesis outside the dept. Pulmonologists are able to review the images in the patient?s EMR. IMPRESSIONS: Ultrasound left chest as above.
--- NOTE | 2023-01-15 19:20 | XR ---
EXAMINATION: XR chest 1V portable DATE AND TIME: 01/15/2023 6:17 PM CLINICAL INDICATION: Inpatient 5 [facility]; SOB TECHNIQUE: Departmental protocol COMPARISON: 01/14/2023 at 7:39 AM FINDINGS: The large left pleural effusion with passive atelectasis of the lingula and left lower lobe is simila r when compared to the prior study. Concurrent left lingular/LLL pneumonia cannot be excluded on clin ical grounds. Throughout the remaining lung parenchyma there is new silhouetting of the pulmonary vasculature diffu sely by a fine reticular pattern of increased attenuation, and interstitial pattern which can correla te with a clinical diagnosis of advanced interstitial phase pulmonary edema. The cardiac silhouette is not well-seen. The skeletal structures and soft tissues are negative for acute findings. IMPRESSION: 1. Continued large left pleural effusion with airlessness throughout the lingula/left lower lobe as discussed. 2. New interstitial pattern throughout the lungs.
[2023-01-15] MEDS ORDERED: QUEtiapine 25 MG TAB PO SCH (21:00)
[2023-01-15] MEDS: PANTOPRAZOLE 40 MG TABLET PO SCH (21:07)
[2023-01-15] MEDS: AZITHROMYCIN 500 MG TAB PO SCH (21:07)
[2023-01-15] MEDS: LACTATED RINGERS 1,000 ML IV SCH ×2 (21:48→21:50)
[2023-01-15 21:56] LABS: Glucose,CSF 64 mg/dL (40-70); Total Protein,CSF 38 mg/dL (12-60)
[2023-01-15 23:34] LABS: Appearance,CSF Clear; CSF Tube Number 4; Nucleated Cells, CSF 0 u/L (0-5); Red Blood Cell,CSF 0 u/L (0-10)
[2023-01-16] MEDS: ACYCLOVIR SODIUM 700 MG in SODIUM CHLORIDE 0.9% 100 ML IVPB SCH (05:51)
[2023-01-16] MEDS: EZETIMIBE 10 MG TAB PO SCH (08:37)
[2023-01-16] MEDS: FERROUS SULFATE 325 MG TAB PO SCH (08:37)
[2023-01-16] MEDS: FOLIC ACID 1 MG TAB PO SCH (08:38)
[2023-01-16] MEDS: ASPIRIN 81 MG PO SCH (08:38)
[2023-01-16] MEDS: ASCORBIC ACID 500 MG TAB PO SCH (08:38)
[2023-01-16] MEDS: CHOLECALCIFEROL 25 MCG (1000 IU) TABLET PO SCH (08:38)
[2023-01-16] MEDS: LORATADINE 10 MG TAB PO SCH (08:38)
[2023-01-16] MEDS: HEPARIN SODIUM,PORCINE/PF 5,000 UNIT/0.5 ML SYRINGE SQ SCH ×2 (08:38→20:11)
[2023-01-16] MEDS: risperiDONE 1 MG TAB PO SCH (08:38)
[2023-01-16] MEDS: ACETAMINOPHEN TAB 500 MG TAB PO PRN ×2 (08:46→17:12)
[2023-01-16 09:45] LABS: Basophils # (A) 0.04 X 10*3/uL (0.00-0.10); Basophils % (A) 0.5 %; Eosinophils # (A) 0.08 X 10*3/uL (0.04-0.35); Eosinophils % (A) 0.9 %; HCT 23.1 % (37.2-46.3); HGB 7.1 g/dL (12.0-15.0); Immature Grans, Automated 0.9 %; Lymphocytes # (A) 0.36 X 10*3/uL (0.90-5.00); Lymphocytes % (A) 4.1 %; MCH 30.3 pg (27.0-32.0); MCHC 30.7 g/dL (32.0-37.0); MCV 98.7 fL (80.0-97.0); Mean Platelet Volume 10.3 fL (9.5-12.2); Monocytes # (A) 0.87 X 10*3/uL (0.20-1.00); Monocytes % (A) 9.8 %; NRBC Per 100 WBC 0 /100 WBCS (0.0-0.0); Neutrophils # (A) 7.42 X 10*3/uL (1.80-7.70); Neutrophils % (A) 83.8 %; Platelet Count 251 X 10*3/uL (140-440); RBC 2.34 X 10*6/uL (4.10-5.20); RDW 17.8 % (11.5-14.5); WBC 8.85 X 10*3/uL (4.50-10.00)
[2023-01-16 11:16] LABS: ALT 14 U/L (8-44); AST 26 U/L (13-35); African American GFR (CKD) 63.9 (60.0-200.0); Albumin 2.8 g/dL (3.8-4.9); Albumin/Globulin Ratio 1.08 (1.60-3.17); Alkaline Phosphatase 52 U/L (41-126); BUN/Creat Ratio 9.39 Ratio (12.00-20.00); Blood Urea Nitrogen 9.8 mg/dL (9.0-27.0); Calcium 8.3 mg/dL (8.7-10.3); Chloride 105 mmol/L (96-109); Globulin 2.6 g/dL (1.6-3.3); Glucose 107 mg/dL (70-110); Non-African American GFR(CKD) 55.2 (60.0-200.0); Potassium 3.4 mmol/L (3.5-5.5); Sodium 139 mmol/L (135-145); Total Bilirubin <0.15 mg/dL (0.30-1.20); Total Protein 5.4 g/dL (6.2-8.2)
--- NOTE | 2023-01-16 11:33 | P.PN ---
Subjective Progress Note Date: 01/16/23 This is a 67-year-old female patient, presented to the hospital because of an altered mental status. The daughter has noted that the patient has been having some increased cough and symptoms of respiratory tract infection. The patient's granddaughters has been having also URIs and subsequently the patient started having increased cough. She denies having any pleurisy or hemoptysis. The patient's family noted that she has been become progressively more confused. She did have chills and currently in the hospital she is running a fever. She came into the emergency and the patient underwent further investigation. Temperature max was 102.7. White cell count was 8. Covid 19 testing, influenza testing, and RSV testing were all negative. UA was negative. Chest x-ray showed a left lower lobe consolidation and pleural effusion. Computed tomography scan of the chest showed cerebral atrophy and chronic perivascular white matter disease changes. The patient was started on Rocephin and Zithromax in the pulmonary consultation was requested. She has remote history of smoking and currently she is a nonsmoker. No agitation. No seizure activity. Neurologic been involved based on underlying confusion. Note that she doesn't have any focal neurological deficits. On 01/15/2023, she is being seen in follow-up. The patient was hospitalized for altered mentation. Her mentation gradually improving. Carotids on the case. The patient had an MRI of the brain that showed no acute abnormalities. There was some nonspecific white matter changes related to small vessel ischemic disease. EEG was abnormal with background slowing suggestive of mild encephalopathy. As mentioned, there was a concern of an underlying pneumonia. There was is also a left-sided pleural effusion. A CAT scan of chest was done yesterday showed a small loculated left-sided pleural effusion without any mediastinal lymphadenopathy. No other acute pulmonary abnormalities were noted. The patient remains on room air oxygen. Breath sounds are improved on today's evaluation of the left. The white cell count 11 hemoglobin is at 7.8 and there is a 2 g up in hemoglobin since yesterday without evidence of any GI bleed. D- dimer was at 1.9 and the Doppler of the rectum is were negative. BUN is at 12 a creatinine 1.2 and sodium levels of 139. Calcium is at 8.6. LFTs are normal. Pro-calcitonin level is at 0.7. On today's evaluation of 01/16/2023, seeing the patient for a follow-up. Overnight, the patient became slightly more short of breath. She was unable to breathe. There was a drop in her oxygenation also. She was placed on 6 L of O2 nasal cannula and subsequently she was brought back down to 2 L. Noted the repeat chest x-ray was done and the patient showed a left-sided pleural effusion which is slightly larger. Ultrasound marking of the left-sided pleural effusion was also done. Neurologically, the patient underwent a lumbar puncture and the findings are negative and the neurologist is still on the case pH was having some movement abnormalities and she responded to treatment. CAT scan of the brain shows some atrophy. MRI can be performed as clinically indicated. EEG showed some mild encephalopathy. The hemoglobin is at 7 and the rest of the electrolytes are all within normal limits. Pro-calcitonin level was at 1.1 and 1.08 respectively. The WBC count of 8.8 with a hemoglobin of 7.1. Objective - Vital Signs Vital signs: Vital Signs Temp 99.8 F H 01/16/23 07:41 Pulse 112 H 01/16/23 07:41 Resp 18 01/16/23 07:41 BP 123/64 01/16/23 07:41 Pulse Ox 93 L 01/16/23 08:22 FiO2 Intake & Output 01/15/23 01/16/23 01/16/23 18:59 06:59 18:59 Other: Voiding Method Toilet Diaper Incontinent # Voids 1 1 # Bowel Movements 1 - Exam Gen. appearance the patient is calm and comfortable and currently she is on room air oxygen Head exam was generally normal. There was no scleral icterus or corneal arcus. Mucous membranes were moist. Neck was supple and without jugular venous distension, thyromegaly, or carotid bruits. Carotids were easily palpable bilaterally. There was no adenopathy. Lungs sounds show diminished breath on the left lung base along with dullness percussion Cardiac exam revealed the PMI to be normally situated and sized. The rhythm was regular and no extrasystoles were noted during several minutes of auscultation. The first and second heart sounds were normal and physiologic splitting of the second heart sound was noted. There were no murmurs, rubs, clicks, or gallops. Abdominal exam revealed normal bowel sounds. The abdomen was soft, non-tender, and without masses, organomegaly, or appreciable enlargement of the abdominal aorta. Examination of the extremities revealed easily palpable radial, femoral and pedal pulses. There was no cyanosis, clubbing or edema. Examination of the skin revealed no evidence of significant rashes, suspicious appearing nevi or other concerning lesions. Neurologically, the patient is alert and awake and communicating. She is still having some underlying confusion. Cranial nerves are intact. No focal neurological deficits. - Labs CBC & Chem 7: 01/16/23 06:01 01/16/23 06:01 Labs: Abnormal Lab Results - Last 24 Hours (Table) 01/15/23 01/15/23 01/16/23 Range/Units 06:50 06:50 06:01 WBC 11.17 H (4.50-10.00) X 10*3/uL RBC 2.46 L 2.34 L (4.10-5.20) X 10*6/uL Hgb 7.8 L 7.1 L (12.0-15.0) g/dL Hct 24.3 L 23.1 L (37.2-46.3) % MCV 98.8 H 98.7 H (80.0-97.0) fL MCHC 30.7 L (32.0-37.0) g/dL RDW 18.1 H 17.8 H (11.5-14.5) % Absolute Nucleated RBC 0.02 H (0.00-0.00) X 10*3/uL Immature Gran # 0.17 H 0.08 H (0.00-0.04) X 10*3/uL Neutrophils # 9.16 H (1.80-7.70) X 10*3/uL Lymphocytes # 0.25 L 0.36 L (0.90-5.00) X 10*3/uL Monocytes # 1.35 H (0.20-1.00) X 10*3/uL NRBC/100 WBC Diff 0.2 H (0.0-0.0) /100 WBCS Potassium (3.5-5.5) mmol/L Est GFR (CKD-EPI)AfAm 56.6 L (60.0-200.0) Est GFR (CKD-EPI)NonAf 48.9 L (60.0-200.0) BUN/Creatinine Ratio 10.52 L (12.00-20.00) Ratio Calcium 8.6 L (8.7-10.3) mg/dL Total Bilirubin <0.15 L (0.30-1.20) mg/dL Total Protein 5.9 L (6.2-8.2) g/dL Albumin 3.1 L (3.8-4.9) g/dL Albumin/Globulin Ratio 1.10 L (1.60-3.17) g/dL 01/16/23 Range/Units 06:01 WBC (4.50-10.00) X 10*3/uL RBC (4.10-5.20) X 10*6/uL Hgb (12.0-15.0) g/dL Hct (37.2-46.3) % MCV (80.0-97.0) fL MCHC (32.0-37.0) g/dL RDW (11.5-14.5) % Absolute Nucleated RBC (0.00-0.00) X 10*3/uL Immature Gran # (0.00-0.04) X 10*3/uL Neutrophils # (1.80-7.70) X 10*3/uL Lymphocytes # (0.90-5.00) X 10*3/uL Monocytes # (0.20-1.00) X 10*3/uL NRBC/100 WBC Diff (0.0-0.0) /100 WBCS Potassium 3.4 L (3.5-5.5) mmol/L Est GFR (CKD-EPI)AfAm (60.0-200.0) Est GFR (CKD-EPI)NonAf 55.2 L (60.0-200.0) BUN/Creatinine Ratio 9.39 L (12.00-20.00) Ratio Calcium 8.3 L (8.7-10.3) mg/dL Total Bilirubin <0.15 L (0.30-1.20) mg/dL Total Protein 5.4 L (6.2-8.2) g/dL Albumin 2.8 L (3.8-4.9) g/dL Albumin/Globulin Ratio 1.08 L (1.60-3.17) g/dL Microbiology - Last 24 Hours (Table) 01/13/23 18:50 Blood Culture - Preliminary Blood 01/13/23 19:05 Blood Culture - Preliminary Blood 01/15/23 12:11 CSF Culture - Preliminary Cerebral Spinal Fluid Assessment and Plan Plan: Altered mentation currently under investigation. Rule out underlying metabolic encephalopathy. Patient has possibly an underlying pneumonia and this could've contributed to the altered mentation. CAT scan of the brain is negative. Neurology is on the case, MRI of the brain is negative, EEG showing mild encephalopathy. Neurologically is improving. The patient is being seen by neurology. Acute febrile illness, currently afebrile Acute hypoxic respiratory failure, currently on 2 L of oxygen by nasal cannula w ith a pulse ox above 90% Left-sided pleural effusion, with small loculation, consider parapneumonic effusion Chronic immunosuppression with intake of methotrexate Limited arthritis Fibromyalgia Plan ultrasound marking of the chest was obtained We'll do a bedside thoracentesis Continue IV Rocephin 2 g every 24 hours Neurologically improved Lumbar puncture was done and the CSF results are still pending Pro calcitonin level is nonelevated We'll continue to follow
--- NOTE | 2023-01-16 11:33 | P.PN ---
Subjective Progress Note Date: 01/16/23 The patient seen at bedside and she is accompanied with her daughter and the daughter she states that she's doing better this morning compared to past couple days. Her uncontrollable abnormal movement/chorea seems more control today compared to the past couple days. She denies of any new neurological issues. Objective - Vital Signs Vital signs: Vital Signs Temp 99.8 F H 01/16/23 07:41 Pulse 112 H 01/16/23 07:41 Resp 18 01/16/23 07:41 BP 123/64 01/16/23 07:41 Pulse Ox 93 L 01/16/23 08:22 FiO2 Intake & Output 01/15/23 01/16/23 01/16/23 18:59 06:59 18:59 Other: Voiding Method Toilet Diaper Incontinent # Voids 1 1 # Bowel Movements 1 - Exam GENERAL: The patient is lying in bed and is not in acute distress. HENT: Supple neck. NEUROLOGICAL: Somewhat limited. Higher mental function: The patient is awake, alert, oriented to self, place and time. No aphasia or neglect. Cranial nerves: The pupils are round, equal and reactive to light. Visual lei are full to confrontation throughout, patient has old purplish discoloration over the left aspect of sclera and daughter stated old. Extraocular movement is intact no nystagmus is noted. The facial strength is normal throughout. Hearing is normal bilaterally to hand rub. Tongue is midline and moved [id number] without any difficulty. No dysarthria is noted. Shoulder shrug is normal bilaterally. Motor: The strength is lifting all extremities above gravity without focality. Normal tone and bulk. Has mild uncontrollable movement in lowers but drastically better today compared to yesterday. Cerebellum: Normal finger to nose bilaterally Sensation: Sensation is normal to touch throughout. Reflexes (right/left): 2+ throughout. Plantars are mute bilaterally. Some other workup during his hospital visit consisted of: Initial temperature is 102.7 Fahrenheit --resolved. White blood cell is 8.0 thousand. MCV is 100.3. Vitamin B12 is 450 Folate was 20.9 TSH is 2.0 to HbA1c: 5.9. Antistreptolysin O antibody is 25 AST and ALT is within normal limits. SARS-CoV-2 PCR is not detected. Influenza A/B and RSV are negative. Urine Analysis I feel is not suggestive of underlying ureter tract infection. Chest x-rays reported a similar moderate size left pleural effusion with adjacent airspace opacity which may represent atelectasis versus pneumonia. CT of the head is reported as atrophy with chronic appearing periventricular white matter ischemic type changes. Follow-up MRI can be performed as clinically indicated. Routine EEG is abnormal. The back on slowing suggestive of mild encephalopathy. Otherwise there is no focal slowing, epileptiform discharges or seizure on the EEG. MRI the brain is reported as no evidence of intracranial mass, acute/subacute infarct or abnormal enhancement. Nonspecific white matter changes, likely related to small vessel ischemic disease. CT of the study is clear, colorless, red blood cells 0, nuclear cells 0, glucose is 64 and a protein is 38. - Labs CBC & Chem 7: 01/16/23 06:01 01/16/23 06:01 Labs: Abnormal Lab Results - Last 24 Hours (Table) 01/15/23 01/15/23 01/16/23 Range/Units 06:50 06:50 06:01 WBC 11.17 H (4.50-10.00) X 10*3/uL RBC 2.46 L 2.34 L (4.10-5.20) X 10*6/uL Hgb 7.8 L 7.1 L (12.0-15.0) g/dL Hct 24.3 L 23.1 L (37.2-46.3) % MCV 98.8 H 98.7 H (80.0-97.0) fL MCHC 30.7 L (32.0-37.0) g/dL RDW 18.1 H 17.8 H (11.5-14.5) % Absolute Nucleated RBC 0.02 H (0.00-0.00) X 10*3/uL Immature Gran # 0.17 H 0.08 H (0.00-0.04) X 10*3/uL Neutrophils # 9.16 H (1.80-7.70) X 10*3/uL Lymphocytes # 0.25 L 0.36 L (0.90-5.00) X 10*3/uL Monocytes # 1.35 H (0.20-1.00) X 10*3/uL NRBC/100 WBC Diff 0.2 H (0.0-0.0) /100 WBCS Potassium (3.5-5.5) mmol/L Est GFR (CKD-EPI)AfAm 56.6 L (60.0-200.0) Est GFR (CKD-EPI)NonAf 48.9 L (60.0-200.0) BUN/Creatinine Ratio 10.52 L (12.00-20.00) Ratio Calcium 8.6 L (8.7-10.3) mg/dL Total Bilirubin <0.15 L (0.30-1.20) mg/dL Total Protein 5.9 L (6.2-8.2) g/dL Albumin 3.1 L (3.8-4.9) g/dL Albumin/Globulin Ratio 1.10 L (1.60-3.17) g/dL 01/16/23 Range/Units 06:01 WBC (4.50-10.00) X 10*3/uL RBC (4.10-5.20) X 10*6/uL Hgb (12.0-15.0) g/dL Hct (37.2-46.3) % MCV (80.0-97.0) fL MCHC (32.0-37.0) g/dL RDW (11.5-14.5) % Absolute Nucleated RBC (0.00-0.00) X 10*3/uL Immature Gran # (0.00-0.04) X 10*3/uL Neutrophils # (1.80-7.70) X 10*3/uL Lymphocytes # (0.90-5.00) X 10*3/uL Monocytes # (0.20-1.00) X 10*3/uL NRBC/100 WBC Diff (0.0-0.0) /100 WBCS Potassium 3.4 L (3.5-5.5) mmol/L Est GFR (CKD-EPI)AfAm (60.0-200.0) Est GFR (CKD-EPI)NonAf 55.2 L (60.0-200.0) BUN/Creatinine Ratio 9.39 L (12.00-20.00) Ratio Calcium 8.3 L (8.7-10.3) mg/dL Total Bilirubin <0.15 L (0.30-1.20) mg/dL Total Protein 5.4 L (6.2-8.2) g/dL Albumin 2.8 L (3.8-4.9) g/dL Albumin/Globulin Ratio 1.08 L (1.60-3.17) g/dL Microbiology - Last 24 Hours (Table) 01/13/23 18:50 Blood Culture - Preliminary Blood 01/13/23 19:05 Blood Culture - Preliminary Blood 01/15/23 12:11 CSF Culture - Preliminary Cerebral Spinal Fluid Assessment and Plan Assessment: This is a 67-year-old woman who presented emergency department because of altered mental status. The daughter she stated that recently the patient has been coughing and patient's grand-children has had URI recently. Encephalopathy seems due to underlying infection (has fever, wbc normal, supple neck) and seem due to underlying pneumonia. 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 Was not on any antidopaminergic drugs in the past. Large left pleural effusion on the recent chest x-ray Plan: I stopped acyclovir since CSF study is negative For her Chorea: Pending Streptococcus group A culture, copper, zinc level. It appears upon looking up on literature that Resporal can help with chorea so yesterday she got 1 mg dose and today she is drastically better. I decreased down to 0.5mg daily and hopefully this Thursday will stop to avoid side-effect from this medication. Per load sure if that does not help can try tetrabenazine. ID and pulmonary team are on board. We'll defer the modification of antibiotic to the ID and pulmonary team. Psychiatry team is also consulted. We'll defer the rest of medical management to primary team The plan was discussed with the patient's daughter was at bedside and Pulmonary team. . Time with Patient: Less than 30
--- NOTE | 2023-01-16 11:36 | P.PCN ---
Date of Procedure: 01/16/23 Preoperative Diagnosis: Left-sided pleural effusion Postoperative Diagnosis: Left-sided pleural effusion Procedure(s) Performed: Thoracentesis Operative Findings: A time out was performed and the chest x-ray was reviewed, the appropriate side was confirmed and marked. My hands were washed immediately prior to the procedure. I wore a surgical cap, mask with protective eyewear, sterile gown and sterile gloves throughout the procedure. The patient was prepped and draped in a sterile manner using chlorhexidine scrub after the appropriate level was percussed and confirmed by ultrasound. 1% lidocaine was used to anesthesize the skin, subcutaneous tissue, superior aspect of the rib periosteum and parietal pleura. A finder needle was then introduced over the superior aspect of the rib to locate the pleural fluid; 2colored fluid was aspirated at a depth of approximately 2 cm. A 10-blade scalpel was used to danii the skin at the insertion site. The [id number] needle was then introduced through the skin incision into the pleural space using negative aspiration pressure and the red colometric indicator to confirm appropriate positioning of the needle. The thoracentesis catheter was then threaded without difficulty. 950ml of turbid colored fluid was removed without difficulty. The catheter was then removed. No immediate complications were noted during the procedure. A post-procedure chest x-ray is pending at the time of this note. The fluid will be sent for studies. Estimated blood loss is 0cc
--- NOTE | 2023-01-16 12:27 | XR ---
EXAMINATION TYPE: XR chest 1V portable DATE OF EXAM: 01/16/2023 Comparison: 01/15/2023 Clinical History: 67-year-old female post left thoracentesis Findings: Heart upper limits of normal size. Diffuse interstitial and patchy groundglass opacities persist. Sli ght shifting of opacities, now left greater than right. Residual small left pleural effusion, decreas ed in the interval. No appreciable pneumothorax. Impression: Interval decrease now with residual small left pleural effusion and adjacent atelectasis/consolidatio n following thoracentesis. No appreciable pneumothorax. Correlate for ongoing interstitial pulmonary edema.
--- NOTE | 2023-01-16 13:41 | P.PN ---
Progress Note - Text Progress Note Date: 01/16/23 Interval History: Patient was seen lying in bed and was directable and agreeable to speak with flex o writer operator in her room. Present in the room as the patient's daughter Arlene. The patient is currently alert and oriented to person, place, and time. She is able to identify the upcoming . She is not endorsing any suicidal or homicidal ideation, intention, and/or plan. She is not reporting any auditory or visual hallucinations. She reports no paranoia or other delusions. She has been adherent with her medications and reports no side effects. Mental Status Exam: General Appearance: Patient appears to be stated age is alert, directable, and cooperative. Behavior: Patient does not display psychomotor agitation today. Speech: Patient's speech is fluent and nonpressured. Mood/Affect: Mood is "alright," affect is pleasant and polite. Suicidality/Homicidality: Patient denies having any suicidal or homicidal ideation intent or plan. Perceptions: Patient denies any visual hallucinations and denies any auditory hallucinations Though content/process: There is no evidence of any delusional thought content and thought process is linear and goal-directed. Memory and concentration: AAOx3. Concentration appears fair. Judgment and insight: Improving mildly -Patient had difficulty with serial sevens. Vital Signs Temp 99.8 F H 01/16/23 07:41 Pulse 112 H 01/16/23 07:41 Resp 18 01/16/23 07:41 BP 123/64 01/16/23 07:41 Pulse Ox 93 L 01/16/23 08:22 FiO2 Intake & Output 01/15/23 01/16/23 01/16/23 18:59 06:59 18:59 Other: Voiding Method Toilet Diaper Incontinent # Voids 1 1 # Bowel Movements 1 Laboratory Results - Last 24 Hours 01/15/23 01/15/23 01/16/23 12:11 16:57 06:01 WBC RBC Hgb Hct MCV MCH MCHC RDW Plt Count MPV Immature Gran % (Auto) Absolute Nucleated RBC Neutrophils % Lymphocytes % Monocytes % Eosinophils % Basophils % Immature Gran # Neutrophils # Lymphocytes # Monocytes # Eosinophils # Basophils # NRBC/100 WBC Diff Sodium Potassium Chloride Carbon Dioxide Anion Gap BUN Creatinine Est GFR (CKD-EPI)AfAm Est GFR (CKD-EPI)NonAf BUN/Creatinine Ratio Glucose POC Glucose (mg/dL) 100 POC Glu Furniture Reproducer ID Lori Campuzano Estimated Ave Glu mg/dL 121 Hemoglobin A1c 5.9 Calcium Total Bilirubin AST ALT Alkaline Phosphatase Total Protein Albumin Globulin Albumin/Globulin Ratio CSF Tube Number 4 CSF Volume 1.0 CSF Appearance Clear CSF Color Colorless CSF RBC 0 CSF Tot Nucleated Cells 0 CSF Glucose 64 CSF Total Protein 38 Anti-Streptolysin O Ab 01/16/23 01/16/23 01/16/23 06:01 06:01 06:01 WBC 8.85 RBC 2.34 L Hgb 7.1 L Hct 23.1 L MCV 98.7 H MCH 30.3 MCHC 30.7 L RDW 17.8 H Plt Count 251 MPV 10.3 Immature Gran % (Auto) 0.9 Absolute Nucleated RBC 0 Neutrophils % 83.8 Lymphocytes % 4.1 Monocytes % 9.8 Eosinophils % 0.9 Basophils % 0.5 Immature Gran # 0.08 H Neutrophils # 7.42 Lymphocytes # 0.36 L Monocytes # 0.87 Eosinophils # 0.08 Basophils # 0.04 NRBC/100 WBC Diff 0 Sodium 139 Potassium 3.4 L Chloride 105 Carbon Dioxide 23.0 Anion Gap 10.50 BUN 9.8 Creatinine 1.0 Est GFR (CKD-EPI)AfAm 63.9 Est GFR (CKD-EPI)NonAf 55.2 L BUN/Creatinine Ratio 9.39 L Glucose 107 POC Glucose (mg/dL) POC Glu Furniture Reproducer ID Estimated Ave Glu mg/dL Hemoglobin A1c Calcium 8.3 L Total Bilirubin <0.15 L AST 26 ALT 14 Alkaline Phosphatase 52 Total Protein 5.4 L Albumin 2.8 L Globulin 2.6 Albumin/Globulin Ratio 1.08 L CSF Tube Number CSF Volume CSF Appearance CSF Color CSF RBC CSF Tot Nucleated Cells CSF Glucose CSF Total Protein Anti-Streptolysin O Ab 25 Assessment Encephalopathy - likely secondary to underlying infection Plan: -Continue medical management and evaluation. -At this time patient DOES NOT meet criteria for inpatient psychiatric admission. -Delirium precautions recommended with patient including - avoiding use of narcotics and [employer] sedatives, limit anticholinergic medications when possible, frequent re-orientation, minimize use of restraints, open window shades during the day and close them at night -Would recommend the following medication changes/additions: Continue Seroquel 25 mg by mouth at bedtime for altered mental status/psychosis. -Psychiatry will sign off. Please call us or reconsult us if necessary.
--- NOTE | 2023-01-16 15:04 | P.PN ---
Subjective Progress Note Date: 01/16/23 Principal diagnosis: Fever question of pneumonia Patient is a 67-year-old female with a past medical history significant for rheumatoid arthritis GERD fibromyalgia presenting to the ER last evening for evaluation of mental status changes, patient was noticed to be febri le and had did have a possible left lower lobe pneumonia. Patient is status post a left-sided thoracocentesis completed on 01/16/2023 On today's evaluation that is 01/16/2023, the patient did have a low-grade fever of 99.9F this morning, the patient is a breathing comfortably on 2 L nasal cannula oxygen, patient denies having any headache and the patient cough has decreased in density mostly dry in nature no nausea no vomiting no abdominal pain or diarrhea Objective - Vital Signs Vital signs: Vital Signs Temp 99.8 F H 01/16/23 07:41 Pulse 112 H 01/16/23 07:41 Resp 18 01/16/23 07:41 BP 123/64 01/16/23 07:41 Pulse Ox 93 L 01/16/23 08:22 FiO2 Intake & Output 01/15/23 01/16/23 01/16/23 18:59 06:59 18:59 Other: Voiding Method Toilet Diaper Incontinent # Voids 1 1 # Bowel Movements 1 - Exam GENERAL DESCRIPTION: An elderly female lying in bed in no distress RESPIRATORY SYSTEM: Unlabored breathing , decreased breath sounds at bases HEART: S1 S2 regular rate and rhythm , ABDOMEN: Soft , no tenderness EXTREMITIES: No edema feet - Labs CBC & Chem 7: 01/16/23 06:01 01/16/23 06:01 Labs: Abnormal Lab Results - Last 24 Hours (Table) 01/15/23 01/16/23 01/16/23 Range/Units 06:50 06:01 06:01 WBC 11.17 H (4.50-10.00) X 10*3/uL RBC 2.46 L 2.34 L (4.10-5.20) X 10*6/uL Hgb 7.8 L 7.1 L (12.0-15.0) g/dL Hct 24.3 L 23.1 L (37.2-46.3) % MCV 98.8 H 98.7 H (80.0-97.0) fL MCHC 30.7 L (32.0-37.0) g/dL RDW 18.1 H 17.8 H (11.5-14.5) % Absolute Nucleated RBC 0.02 H (0.00-0.00) X 10*3/uL Immature Gran # 0.17 H 0.08 H (0.00-0.04) X 10*3/uL Neutrophils # 9.16 H (1.80-7.70) X 10*3/uL Lymphocytes # 0.25 L 0.36 L (0.90-5.00) X 10*3/uL Monocytes # 1.35 H (0.20-1.00) X 10*3/uL NRBC/100 WBC Diff 0.2 H (0.0-0.0) /100 WBCS Potassium 3.4 L (3.5-5.5) mmol/L Est GFR (CKD-EPI)NonAf 55.2 L (60.0-200.0) BUN/Creatinine Ratio 9.39 L (12.00-20.00) Ratio Calcium 8.3 L (8.7-10.3) mg/dL Total Bilirubin <0.15 L (0.30-1.20) mg/dL Total Protein 5.4 L (6.2-8.2) g/dL Albumin 2.8 L (3.8-4.9) g/dL Albumin/Globulin Ratio 1.08 L (1.60-3.17) g/dL Microbiology - Last 24 Hours (Table) 01/13/23 18:50 Blood Culture - Preliminary Blood 01/13/23 19:05 Blood Culture - Preliminary Blood 01/15/23 12:11 CSF Culture - Preliminary Cerebral Spinal Fluid Assessment and Plan (1) Pneumonia Current Visit: Yes Status: Acute Code(s): J18.9 - PNEUMONIA, UNSPECIFIED ORGANISM SNOMED Code(s): 294921117 Plan: 1-Patient was in the hospital with sepsis in this patient who did have a fever tachycardia did have some respiratory symptoms with evidence of left-sided effusion possible pneumonia and parapneumonic effusion likely community-acquired pathogen complicated infection such as loculated effusion not entirely excluded, patient did have a CT of the chest with tissues small left effusion which may be loculated by radiology report, the patient is status post throcentesis completed on 01/16/2023 results will be followed 2-patient did have procalcitonin of 0.76 3-patient to continue Rocephin 2 g daily and monitor clinical course closely Time with Patient: Less than 30
[2023-01-16] MEDS: PANTOPRAZOLE 40 MG TABLET PO SCH (20:11)
--- NOTE | 2023-01-16 20:23 | P.PN ---
Progress Note - Text Progress Note Date: 01/16/23 Hospital course: This is a 67-year-old female patient, presented to the hospital because of an a ltered mental status. The daughter has noted that the patient has been having some increased cough and symptoms of respiratory tract infection. The patient's granddaughters has been having also URIs and subsequently the patient started having increased cough. She denies having any pleurisy or hemoptysis. The patient's family noted that she has been become progressively more confused. She did have chills and currently in the hospital she is running a fever. She came into the emergency and the patient underwent further investigation. Temperature max was 102.7. White cell count was 8. Covid 19 testing, influenza testing, and RSV testing were all negative. UA was negative. Chest x-ray showed a left lower lobe consolidation and pleural effusion. Computed tomography scan of the chest showed cerebral atrophy and chronic perivascular white matter disease changes. She has remote history of smoking and currently nonsmoker. No agitation. No seizure activity. Neurologic been involved based on underlying confusion. Note that she doesn't have any focal neurological deficits Patient being followed by neurology and pulmonary. January 16: I assumed care of the patient from [facility] today. Patient daughter the bedside. She states patient is about 60% better. More oriented. Did eat a bit. This afternoon 9 50 mL of turbid colored fluid was removed without difficulty by Dr. Lowery. Acyclovir was discontinued by neurology. Risperdal is being cut back by neurology. CSF fluid otherwise appears to be unremarkable. - 0 nucleated cells. Oral intake about 50% IV ceftriaxone Active Medications Acetaminophen (Acetaminophen Tab 500 Mg Tab) 1,000 mg PO Q6HR PRN PRN Reason: Fever and/ or Pain Last Admin: 01/16/23 17:12 Dose: 1,000 mg Ascorbic Acid (Ascorbic Acid 500 Mg Tab) 500 mg PO MoWeFr@0900 [facility] Last Admin: 01/16/23 08:38 Dose: 500 mg Aspirin (Aspirin 81 Mg) 81 mg PO DAILY [facility] Last Admin: 01/16/23 08:38 Dose: Not Given Cholecalciferol (Cholecalciferol 25 Mcg (1000 Iu) Tablet) 25 mcg PO DAILY [facility] Last Admin: 01/16/23 08:38 Dose: 25 mcg Docusate Sodium (Docusate 100 Mg Cap) 100 mg PO [email or web address]@0900 [facility] Last Admin: 01/15/23 09:25 Dose: 100 mg Ezetimibe (Ezetimibe 10 Mg Tab) 10 mg PO DAILY [facility] Last Admin: 01/16/23 08:37 Dose: 10 mg Ferrous Sulfate (Ferrous Sulfate 325 Mg Tab) 325 mg PO [email or web address]@0900 [facility] Last Admin: 01/16/23 08:37 Dose: 325 mg Folic Acid (Folic Acid 1 Mg Tab) 1 mg PO DAILY [facility] Last Admin: 01/16/23 08:38 Dose: 1 mg Heparin Sodium (Porcine) (Heparin Sodium,Porcine/Pf 5,000 Unit/0.5 Ml Syringe) 5,000 unit SQ Q12HR [facility] Last Admin: 01/16/23 20:11 Dose: 5,000 unit Lactated Ringer's (Lactated Ringers) 1,000 mls @ 20 mls/hr IV .Q24H [facility] Last Admin: 01/15/23 21:50 Dose: 20 mls/hr Ceftriaxone Sodium 2 gm/ (Sodium Chloride) 50 mls @ 100 mls/hr IVPB Q24HR [facility]; Protocol Last Admin: 01/16/23 12:39 Dose: 100 mls/hr Ibuprofen (Ibuprofen 600 Mg Tab) 600 mg PO TID PRN PRN Reason: Fever Loratadine (Loratadine 10 Mg Tab) 10 mg PO DAILY [facility] Last Admin: 01/16/23 08:38 Dose: 10 mg Miscellaneous Information (Pneumonia Protocol Utilized 1 Each Misc) 1 each PO ONCE PRN PRN Reason: Per Protocol Pantoprazole Sodium (Pantoprazole 40 Mg Tablet) 40 mg PO HS [facility] Last Admin: 01/16/23 20:11 Dose: 40 mg Risperidone (Risperidone 0.5 Mg Tab) 0.5 mg PO DAILY [facility] Stop: 01/18/23 23:00 On examination: VITAL SIGNS: [99.8, 112, 18, 123/64, 83% on 2 L GENERAL APPEARANCE: Lying in bed, a bit tired HEENT: Normal external appearance of nose and ear. Oral cavity normal EYES: Pupils equal. Conjunctiva normal. NECK: JVD not raised. Mass not palpable. RESPIRATORY: Respiratory effort increased. Lungs clear breath sound especially on the left side CARDIOVASCULAR: First and second sounds normal. No edema. ABDOMEN: Soft. Liver and spleen not palpable. No tenderness. No mass palpable. PSYCHIATRY: Able to answer simple questions. INVESTIGATIONS, reviewed in the clinical context: January 16: White count 8.8 hemoglobin 7.1 platelets 251 potassium 3.4 creatinine 1.0 Previous labs: Procalcitonin 0.76 CSF: Protruding. 70 glucose 64 total protein 38 Influenza type A/B/RSV/COVID-19: Not detected Venous Doppler: Negative for DVT, bilateral Brain MRI: Nonspecific white matter changes. EEG: No epileptiform activity. Some suggestion of encephalopathy. Assessment and plan: -Altered mental status likely metabolic encephalopathy/delirium from pneumonia and parapneumonic effusion. Other neurological workup has been negative.: Slight improvement -Left-sided pneumonia with a parapneumonic effusion IV ceftriaxone -Left parapneumonic effusion, 9 50 mL turbid fluid removed on January [address] Lowery Await results -GERD PPI -Depression and anxiety Trazodone, Effexor X are -Hyperlipidemia Zetia -Rheumatoid arthritis Methotrexate,xeljanz IV ceftriaxone. Improving. Oral intake about 50%. Stop Risperdal. Status post thoracentesis. Up in chair as tolerated.
[2023-01-16 20:56] LABS: Cholesterol,BF Source Pleural Fluid; Cholesterol,Body Fluid 688 mg/dL; Glucose, BF Source Pleural Fluid; Glucose, Body Fluid 57 mg/dL; LDH, Body Fluid Source Pleural Fluid; T. Protein, Body Fluid Source Pleural Fluid; Total Protein, Body Fluid 3830 mg/dL
[2023-01-16 21:47] LABS: Appearance,BF BLOOD TINGED TURBID
[2023-01-17 05:53] LABS: Anisocytosis Slight; Basophils % (A) 0 %; Eosinophils # (A) 0.2 k/uL (0-0.7); Eosinophils % (A) 3 %; HCT 23.8 % (34.0-46.0); Hypochromasia Slight; Lymphocytes # (A) 0.4 k/uL (1.0-4.8); Lymphocytes % (A) 5 %; MCH 31.8 pg (25.0-35.0); MCHC 32.2 g/dL (31.0-37.0); MCV 98.7 fL (80.0-100.0); Macrocytosis Slight; Mean Platelet Volume 8.6; Monocytes # (A) 0.4 k/uL (0-1.0); Monocytes % (A) 6 %; Neutrophils # (A) 5.7 k/uL (1.3-7.7); Neutrophils % (A) 83 %; Platelet Count 282 k/uL (150-450); RBC 2.41 m/uL (3.80-5.40); WBC 6.9 k/uL (3.8-10.6)
[2023-01-17 05:55] LABS: HGB 7.7 gm/dL (11.4-16.0)
[2023-01-17] MEDS: ACETAMINOPHEN TAB 500 MG TAB PO PRN ×2 (06:32→19:32)
[2023-01-17 06:37] LABS: Mycoplasma IgG Antibody (EIA) 1.51 INDEX (<=0.90); Mycoplasma IgM Antibody 0.15 INDEX (<=0.90)
[2023-01-17] MEDS: ASPIRIN 81 MG PO SCH (08:40)
[2023-01-17] MEDS: EZETIMIBE 10 MG TAB PO SCH (08:40)
[2023-01-17] MEDS: FOLIC ACID 1 MG TAB PO SCH (08:40)
[2023-01-17] MEDS: ENOXAPARIN 40 MG/0.4 ML SYRINGE SQ SCH (08:41)
[2023-01-17] MEDS: CHOLECALCIFEROL 25 MCG (1000 IU) TABLET PO SCH (08:41)
[2023-01-17] MEDS ORDERED: risperiDONE 0.5 MG TAB PO SCH (09:00)
--- NOTE | 2023-01-17 12:46 | P.PN ---
Subjective Progress Note Date: 01/17/23 This is a 67-year-old female patient, presented to the hospital because of an altered mental status. The daughter has noted that the patient has been having some increased cough and symptoms of respiratory tract infection. The patient's granddaughters has been having also URIs and subsequently the patient started having increased cough. She denies having any pleurisy or hemoptysis. The patient's family noted that she has been become progressively more confused. She did have chills and currently in the hospital she is running a fever. She came into the emergency and the patient underwent further investigation. Temperature max was 102.7. White cell count was 8. Covid 19 testing, influenza testing, and RSV testing were all negative. UA was negative. Chest x-ray showed a left lower lobe consolidation and pleural effusion. Computed tomography scan of the chest showed cerebral atrophy and chronic perivascular white matter disease changes. The patient was started on Rocephin and Zithromax in the pulmonary consultation was requested. She has remote history of smoking and currently she is a nonsmoker. No agitation. No seizure activity. Neurologic been involved based on underlying confusion. Note that she doesn't have any focal neurological deficits. On 01/15/2023, she is being seen in follow-up. The patient was hospitalized for altered mentation. Her mentation gradually improving. Carotids on the case. The patient had an MRI of the brain that showed no acute abnormalities. There was some nonspecific white matter changes related to small vessel ischemic disease. EEG was abnormal with background slowing suggestive of mild encephalopathy. As mentioned, there was a concern of an underlying pneumonia. There was is also a left-sided pleural effusion. A CAT scan of chest was done yesterday showed a small loculated left-sided pleural effusion without any mediastinal lymphadenopathy. No other acute pulmonary abnormalities were noted. The patient remains on room air oxygen. Breath sounds are improved on today's evaluation of the left. The white cell count 11 hemoglobin is at 7.8 and there is a 2 g up in hemoglobin since yesterday without evidence of any GI bleed. D- dimer was at 1.9 and the Doppler of the rectum is were negative. BUN is at 12 a creatinine 1.2 and sodium levels of 139. Calcium is at 8.6. LFTs are normal. Pro-calcitonin level is at 0.7. On today's evaluation of 01/16/2023, seeing the patient for a follow-up. Overnight, the patient became slightly more short of breath. She was unable to breathe. There was a drop in her oxygenation also. She was placed on 6 L of O2 nasal cannula and subsequently she was brought back down to 2 L. Noted the repeat chest x-ray was done and the patient showed a left-sided pleural effusion which is slightly larger. Ultrasound marking of the left-sided pleural effusion was also done. Neurologically, the patient underwent a lumbar puncture and the findings are negative and the neurologist is still on the case pH was having some movement abnormalities and she responded to treatment. CAT scan of the brain shows some atrophy. MRI can be performed as clinically indicated. EEG showed some mild encephalopathy. The hemoglobin is at 7 and the rest of the electrolytes are all within normal limits. Pro-calcitonin level was at 1.1 and 1.08 respectively. The WBC count of 8.8 with a hemoglobin of 7.1. On today's evaluation of 06/19/2023 the patient remains on 2 L of oxygen by nasal cannula and she is also on IV Rocephin. I performed a thoracentesis on her and removed approximately 900 mL of pleural fluid from her left lung. No complications. The fluid is transudate. The white cell count is quite elevated and symptoms is elevated LDH and protein and a glucose slightly lower. Awaiting the pleural fluid cultures and cytology. Meanwhile, the chest x-ray that showed no pneumothorax, and showed some infiltration and consolidation involving the left lung base. No altered mentation. Mentation is improved considerably for now. WBC count at 6.9, hemoglobin was at 7.7, pro-calcitonin level is at 0.9. Noted the pleural fluid cell count was 257 and the red count was 45,000. LDH was 6:15 with a protein count of 3830. Objective - Vital Signs Vital signs: Vital Signs Temp 98.8 F 01/17/23 07:20 Pulse 95 01/17/23 07:20 Resp 16 01/17/23 07:20 BP 106/48 01/17/23 07:20 Pulse Ox 95 01/17/23 07:20 FiO2 Intake & Output 01/16/23 01/17/23 01/17/23 18:59 06:59 18:59 Intake Total 240 Balance 240 Intake: Intake, IV Titration 240 Amount Lactated Ringers 1,000 ml 240 @ 20 mls/hr IV .Q24H [facility] Rx#:[id number] Other: Voiding Method Diaper Diaper Toilet Incontinent Incontinent # Voids 3 1 # Bowel Movements 1 - Exam Gen. appearance the patient is calm and comfortable and currently she is on 2 L of O2 nasal cannula with a pulse ox of 97% Head exam was generally normal. There was no scleral icterus or corneal arcus. Mucous membranes were moist. Neck was supple and without jugular venous distension, thyromegaly, or carotid bruits. Carotids were easily palpable bilaterally. There was no adenopathy. Lungs sounds show diminished breath on the left lung base along with dullness percussion Cardiac exam revealed the PMI to be normally situated and sized. The rhythm was regular and no extrasystoles were noted during several minutes of auscultation. The first and second heart sounds were normal and physiologic splitting of the second heart sound was noted. There were no murmurs, rubs, clicks, or gallops. Abdominal exam revealed normal bowel sounds. The abdomen was soft, non-tender, and without masses, organomegaly, or appreciable enlargement of the abdominal aorta. Examination of the extremities revealed easily palpable radial, femoral and pedal pulses. There was no cyanosis, clubbing or edema. Examination of the skin revealed no evidence of significant rashes, suspicious appearing nevi or other concerning lesions. Neurologically, the patient is alert and awake and communicating. She is still having some underlying confusion. Cranial nerves are intact. No focal neurological deficits. - Labs CBC & Chem 7: 01/17/23 05:05 01/16/23 06:01 Labs: Abnormal Lab Results - Last 24 Hours (Table) 01/14/23 01/16/23 01/17/23 Range/Units 10:38 06:01 05:05 RBC (3.80-5.40) m/uL Hgb (11.4-16.0) gm/dL Hct (34.0-46.0) % RDW (11.5-15.5) % Lymphocytes # (1.0-4.8) k/uL Potassium 3.4 L (3.5-5.5) mmol/L Est GFR (CKD-EPI)NonAf 55.2 L (60.0-200.0) BUN/Creatinine Ratio 9.39 L (12.00-20.00) Ratio Calcium 8.3 L (8.7-10.3) mg/dL Total Bilirubin <0.15 L (0.30-1.20) mg/dL Total Protein 5.4 L (6.2-8.2) g/dL Albumin 2.8 L (3.8-4.9) g/dL Albumin/Globulin Ratio 1.08 L (1.60-3.17) g/dL Procalcitonin 0.97 H (0.02-0.09) ng/mL Mycoplasma pneumon IgG 1.51 H (<=0.90) INDEX 01/17/23 Range/Units 05:05 RBC 2.41 L (3.80-5.40) m/uL Hgb 7.7 L D (11.4-16.0) gm/dL Hct 23.8 L (34.0-46.0) % RDW 18.0 H (11.5-15.5) % Lymphocytes # 0.4 L (1.0-4.8) k/uL Potassium (3.5-5.5) mmol/L Est GFR (CKD-EPI)NonAf (60.0-200.0) BUN/Creatinine Ratio (12.00-20.00) Ratio Calcium (8.7-10.3) mg/dL Total Bilirubin (0.30-1.20) mg/dL Total Protein (6.2-8.2) g/dL Albumin (3.8-4.9) g/dL Albumin/Globulin Ratio (1.60-3.17) g/dL Procalcitonin (0.02-0.09) ng/mL Mycoplasma pneumon IgG (<=0.90) INDEX Microbiology - Last 24 Hours (Table) 01/16/23 11:40 Anaerobic Culture - Preliminary Pleural Fluid 01/16/23 11:40 Body Fluid Culture - Preliminary Pleural Fluid 01/15/23 12:11 CSF Gram Stain - Preliminary Cerebral Spinal Fluid CSF Culture - Preliminary 01/13/23 18:50 Blood Culture - Preliminary Blood 01/13/23 19:05 Blood Culture - Preliminary Blood Assessment and Plan Plan: Altered mentation currently under investigation. Rule out underlying metabolic encephalopathy. Patient has possibly an underlying pneumonia and this could've contributed to the altered mentation. CAT scan of the brain is negative. Neurology is on the case, MRI of the brain is negative, EEG showing mild encephalopathy. Neurologically is improving. The patient is being seen by neurology. Acute febrile illness, currently afebrile Acute hypoxic respiratory failure, currently on 2 L of oxygen by nasal cannula with a pulse ox above 90% Left-sided pleural effusion, with small loculation, consider parapneumonic effusion Chronic immunosuppression with intake of methotrexate Limited arthritis Fibromyalgia Plan Clinically improved since the thoracentesis Awaiting pleural fluid cultures and cytology Continue IV Rocephin Wean FiO2 as tolerated to [facility] about 90% We'll follow
--- NOTE | 2023-01-17 13:00 | P.PN ---
Subjective Progress Note Date: 01/17/23 The patient seen at bedside who is accompanied with her daughter. Patient feels she is doing drastically better compared to couple days ago. Daughter also is in agreement with the patient's statement. Denies any further chorea or the abnormal movement. Objective - Vital Signs Vital signs: Vital Signs Temp 97.4 F L 01/17/23 11:35 Pulse 85 01/17/23 11:35 Resp 16 01/17/23 11:35 BP 119/69 01/17/23 11:35 Pulse Ox 97 01/17/23 11:35 FiO2 Intake & Output 01/16/23 01/17/23 01/17/23 18:59 06:59 18:59 Intake Total 240 Balance 240 Intake: Intake, IV Titration 240 Amount Lactated Ringers 1,000 ml 240 @ 20 mls/hr IV .Q24H [facility] Rx#:[id number] Other: Voiding Method Diaper Diaper Toilet Incontinent Incontinent # Voids 3 1 # Bowel Movements 1 - Exam GENERAL: The patient is sitting in a recliner chair and not in acute distress. HENT: Supple neck. NEUROLOGICAL: Somewhat limited. Higher mental function: The patient is awake, alert, oriented to self, place and time. No aphasia or neglect. Cranial nerves: The pupils are round, equal and reactive to light. Visual lei are full to confrontation throughout, patient has old purplish discoloration over the left aspect of sclera and daughter stated old. Extraocular movement is intact no nystagmus is noted. The facial strength is normal throughout. Hearing is normal bilaterally to hand rub. Tongue is midline and moved [id number] without any difficulty. No dysarthria is noted. Shoulder shrug is normal bilaterally. Motor: The strength is lifting all extremities above gravity without focality. Normal tone and bulk. No spontaneous movement. Cerebellum: Normal finger to nose bilaterally Sensation: Sensation is normal to touch throughout. Reflexes (right/left): 2+ throughout. Plantars are mute bilaterally. Some other workup during his hospital visit consisted of: Initial temperature is 102.7 Fahrenheit --resolved. White blood cell is 8.0 thousand. MCV is 100.3. Vitamin B12 is 450 Folate was 20.9 TSH is 2.0 to HbA1c: 5.9. Antistreptolysin O antibody is 25 AST and ALT is within normal limits. SARS-CoV-2 PCR is not detected. Influenza A/B and RSV are negative. Urine Analysis I feel is not suggestive of underlying ureter tract infection. Chest x-rays reported a similar moderate size left pleural effusion with adjacent airspace opacity which may represent atelectasis versus pneumonia. CT of the head is reported as atrophy with chronic appearing periventricular white matter ischemic type changes. Follow-up MRI can be performed as clinically indicated. Routine EEG is abnormal. The back on slowing suggestive of mild encephalopathy. Otherwise there is no focal slowing, epileptiform discharges or seizure on the EEG. MRI the brain is reported as no evidence of intracranial mass, acute/subacute infarct or abnormal enhancement. Nonspecific white matter changes, likely related to small vessel ischemic disease. CT of the study is clear, colorless, red blood cells 0, nuclear cells 0, glucose is 64 and a protein is 38. - Labs CBC & Chem 7: 01/17/23 05:05 01/16/23 06:01 Labs: Abnormal Lab Results - Last 24 Hours (Table) 01/14/23 01/17/23 01/17/23 Range/Units 10:38 05:05 05:05 RBC 2.41 L (3.80-5.40) m/uL Hgb 7.7 L D (11.4-16.0) gm/dL Hct 23.8 L (34.0-46.0) % RDW 18.0 H (11.5-15.5) % Lymphocytes # 0.4 L (1.0-4.8) k/uL Procalcitonin 0.97 H (0.02-0.09) ng/mL Mycoplasma pneumon IgG 1.51 H (<=0.90) INDEX Microbiology - Last 24 Hours (Table) 01/13/23 18:50 Blood Culture - Preliminary Blood 01/13/23 19:05 Blood Culture - Preliminary Blood 01/16/23 11:40 Anaerobic Culture - Preliminary Pleural Fluid 01/16/23 11:40 Body Fluid Culture - Preliminary Pleural Fluid 01/15/23 12:11 CSF Gram Stain - Preliminary Cerebral Spinal Fluid CSF Culture - Preliminary Assessment and Plan Assessment: This is a 67-year-old woman who presented emergency department because of altered mental status. The daughter she stated that recently the patient has been coughing and patient's grand-children has had URI recently. Encephalopathy seems due to underlying infection (has fever, wbc normal, supple neck) and seem due to underlying pneumonia. 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 Was not on any antidopaminergic drugs in the past. Large left pleural effusion Chronic immunosuppression with intake of methotrexate Plan: For her Chorea: Pending Streptococcus group A culture, copper, zinc level. It appears upon looking up on literature that Resporal can help with chorea so yesterday she got 1 mg dose and today she is drastically better. I decreased down to 0.5mg daily and hopefully this Thursday will stop to avoid side-effect from this medication. Per load sure if that does not help can try tetrabenazine. ID and pulmonary team are on board. We'll defer the modification of antibiotic to the ID and pulmonary team. Psychiatry team is also consulted. We'll defer the rest of medical management to primary team The plan was discussed with the patient's daughter was at bedside and nurse. Will follow-up sporadically. Dr. Lynn will start neurology service tomorrow A.M. Time with Patient: Less than 30
--- NOTE | 2023-01-17 18:15 | P.PN ---
Progress Note - Text Progress Note Date: 01/17/23 Hospital course: This is a 67-year-old female patient, presented to the hospital because of an a ltered mental status. The daughter has noted that the patient has been having some increased cough and symptoms of respiratory tract infection. The patient's granddaughters has been having also URIs and subsequently the patient started having increased cough. She denies having any pleurisy or hemoptysis. The patient's family noted that she has been become progressively more confused. She did have chills and currently in the hospital she is running a fever. She came into the emergency and the patient underwent further investigation. Temperature max was 102.7. White cell count was 8. Covid 19 testing, influenza testing, and RSV testing were all negative. UA was negative. Chest x-ray showed a left lower lobe consolidation and pleural effusion. Computed tomography scan of the chest showed cerebral atrophy and chronic perivascular white matter disease changes. She has remote history of smoking and currently nonsmoker. No agitation. No seizure activity. Neurologic been involved based on underlying confusion. Note that she doesn't have any focal neurological deficits Patient being followed by neurology and pulmonary. January 16: I assumed care of the patient from [facility] today. Patient daughter the bedside. She states patient is about 60% better. More oriented. Did eat a bit. This afternoon 9 50 mL of turbid colored fluid was removed without difficulty by Dr. Lowery. Acyclovir was discontinued by neurology. Risperdal is being cut back by neurology. CSF fluid otherwise appears to be unremarkable. - 0 nucleated cells. Oral intake about 50% IV ceftriaxone January 17: Patient sitting up in a recliner. For more cheerful awake. Oral intake much improved. Daughter present. Much happy about improvement. Breathing better. IV ceftriaxone. Cultures from pleural fluid pending. Active Medications Acetaminophen (Acetaminophen Tab 500 Mg Tab) 1,000 mg PO Q6HR PRN PRN Reason: Fever and/ or Pain Last Admin: 01/17/23 06:32 Dose: 1,000 mg Ascorbic Acid (Ascorbic Acid 500 Mg Tab) 500 mg PO MoWeFr@0900 [facility] Last Admin: 01/16/23 08:38 Dose: 500 mg Aspirin (Aspirin 81 Mg) 81 mg PO DAILY [facility] Last Admin: 01/17/23 08:40 Dose: 81 mg Cholecalciferol (Cholecalciferol 25 Mcg (1000 Iu) Tablet) 25 mcg PO DAILY [facility] Last Admin: 01/17/23 08:41 Dose: 25 mcg Ezetimibe (Ezetimibe 10 Mg Tab) 10 mg PO DAILY [facility] Last Admin: 01/17/23 08:40 Dose: 10 mg Enoxaparin Sodium (Enoxaparin 40 Mg/0.4 Ml Syringe) 40 mg SQ DAILY [facility] Last Admin: 01/17/23 08:41 Dose: 40 mg Ferrous Sulfate (Ferrous Sulfate 325 Mg Tab) 325 mg PO MoWeFr@0900 [facility] Last Admin: 01/16/23 08:37 Dose: 325 mg Folic Acid (Folic Acid 1 Mg Tab) 1 mg PO DAILY [facility] Last Admin: 01/17/23 08:40 Dose: 1 mg Lactated Ringer's (Lactated Ringers) 1,000 mls @ 20 mls/hr IV .Q24H [facility] Last Admin: 01/15/23 21:50 Dose: 20 mls/hr Ceftriaxone Sodium 2 gm/ (Sodium Chloride) 50 mls @ 100 mls/hr IVPB Q24HR [facility]; Protocol Last Admin: 01/17/23 08:39 Dose: 100 mls/hr Ibuprofen (Ibuprofen 600 Mg Tab) 600 mg PO TID PRN PRN Reason: Fever Last Admin: 01/17/23 08:40 Dose: 600 mg Miscellaneous Information (Pneumonia Protocol Utilized 1 Each Misc) 1 each PO ONCE PRN PRN Reason: Per Protocol Pantoprazole Sodium (Pantoprazole 40 Mg Tablet) 40 mg PO HS [facility] Last Admin: 01/16/23 20:11 Dose: 40 mg On examination: VITAL SIGNS: 97.4, 85, 16, 119-69, 97% on 2 L GENERAL APPEARANCE: Up in a chair, far more awake HEENT: Normal external appearance of nose and ear. Oral cavity normal EYES: Pupils equal. Conjunctiva normal. NECK: JVD not raised. Mass not palpable. RESPIRATORY: Respiratory effort increased. Lungs coarse crackles-on the left side CARDIOVASCULAR: First and second sounds normal. No edema. ABDOMEN: Soft. Liver and spleen not palpable. No tenderness. No mass palpable. PSYCHIATRY: AO 3, mood affect normal INVESTIGATIONS, reviewed in the clinical context: January 17: White count 6.9 hemoglobin 7.7 platelets 282. Procalcitonin 0.97 January 16: White count 8.8 hemoglobin 7.1 platelets 251 potassium 3.4 creatinine 1.0 Previous labs: Procalcitonin 0.76 CSF: Protruding. 70 glucose 64 total protein 38 Influenza type A/B/RSV/COVID-19: Not detected Venous Doppler: Negative for DVT, bilateral Brain MRI: Nonspecific white matter changes. EEG: No epileptiform activity. Some suggestion of encephalopathy. Assessment and plan: -Altered mental status likely metabolic encephalopathy/delirium from pneumonia and parapneumonic effusion. Other neurological workup has been negative.: Better -Left-sided pneumonia with a parapneumonic effusion IV ceftriaxone -Left parapneumonic effusion, 9 50 mL turbid fluid removed on January [address] Lowery Await results -GERD PPI -Depression and anxiety Trazodone, Effexor X are -Hyperlipidemia Zetia -Rheumatoid arthritis Methotrexate,xeljanz-both currently on hold because of infection IV ceftriaxone. Clinically, patient doing much better. Pending. He'll fluid culture results. Discussed with daughter. Increase activity.
[2023-01-17] MEDS: PANTOPRAZOLE 40 MG TABLET PO SCH (19:33)
[2023-01-17] MEDS: LACTATED RINGERS 1,000 ML IV SCH (23:50)
[2023-01-18] MEDS: ENOXAPARIN 40 MG/0.4 ML SYRINGE SQ SCH (09:54)
[2023-01-18] MEDS: CHOLECALCIFEROL 25 MCG (1000 IU) TABLET PO SCH (09:55)
[2023-01-18] MEDS: FOLIC ACID 1 MG TAB PO SCH (09:55)
[2023-01-18] MEDS: EZETIMIBE 10 MG TAB PO SCH (09:56)
[2023-01-18] MEDS: ASPIRIN 81 MG PO SCH (09:56)
--- NOTE | 2023-01-18 11:10 | P.PN ---
Subjective Progress Note Date: 01/18/23 This is a 67-year-old female patient, presented to the hospital because of an altered mental status. The daughter has noted that the patient has been having some increased cough and symptoms of respiratory tract infection. The patient's granddaughters has been having also URIs and subsequently the patient started having increased cough. She denies having any pleurisy or hemoptysis. The patient's family noted that she has been become progressively more confused. She did have chills and currently in the hospital she is running a fever. She came into the emergency and the patient underwent further investigation. Temperature max was 102.7. White cell count was 8. Covid 19 testing, influenza testing, and RSV testing were all negative. UA was negative. Chest x-ray showed a left lower lobe consolidation and pleural effusion. Computed tomography scan of the chest showed cerebral atrophy and chronic perivascular white matter disease changes. The patient was started on Rocephin and Zithromax in the pulmonary consultation was requested. She has remote history of smoking and currently she is a nonsmoker. No agitation. No seizure activity. Neurologic been involved based on underlying confusion. Note that she doesn't have any focal neurological deficits. On 01/15/2023, she is being seen in follow-up. The patient was hospitalized for altered mentation. Her mentation gradually improving. Carotids on the case. The patient had an MRI of the brain that showed no acute abnormalities. There was some nonspecific white matter changes related to small vessel ischemic disease. EEG was abnormal with background slowing suggestive of mild encephalopathy. As mentioned, there was a concern of an underlying pneumonia. There was is also a left-sided pleural effusion. A CAT scan of chest was done yesterday showed a small loculated left-sided pleural effusion without any mediastinal lymphadenopathy. No other acute pulmonary abnormalities were noted. The patient remains on room air oxygen. Breath sounds are improved on today's evaluation of the left. The white cell count 11 hemoglobin is at 7.8 and there is a 2 g up in hemoglobin since yesterday without evidence of any GI bleed. D- dimer was at 1.9 and the Doppler of the rectum is were negative. BUN is at 12 a creatinine 1.2 and sodium levels of 139. Calcium is at 8.6. LFTs are normal. Pro-calcitonin level is at 0.7. On today's evaluation of 01/16/2023, seeing the patient for a follow-up. Overnight, the patient became slightly more short of breath. She was unable to breathe. There was a drop in her oxygenation also. She was placed on 6 L of O2 nasal cannula and subsequently she was brought back down to 2 L. Noted the repeat chest x-ray was done and the patient showed a left-sided pleural effusion which is slightly larger. Ultrasound marking of the left-sided pleural effusion was also done. Neurologically, the patient underwent a lumbar puncture and the findings are negative and the neurologist is still on the case pH was having some movement abnormalities and she responded to treatment. CAT scan of the brain shows some atrophy. MRI can be performed as clinically indicated. EEG showed some mild encephalopathy. The hemoglobin is at 7 and the rest of the electrolytes are all within normal limits. Pro-calcitonin level was at 1.1 and 1.08 respectively. The WBC count of 8.8 with a hemoglobin of 7.1. On today's evaluation of 06/19/2023 the patient remains on 2 L of oxygen by nasal cannula and she is also on IV Rocephin. I performed a thoracentesis on her and removed approximately 900 mL of pleural fluid from her left lung. No complications. The fluid is transudate. The white cell count is quite elevated and symptoms is elevated LDH and protein and a glucose slightly lower. Awaiting the pleural fluid cultures and cytology. Meanwhile, the chest x-ray that showed no pneumothorax, and showed some infiltration and consolidation involving the left lung base. No altered mentation. Mentation is improved considerably for now. WBC count at 6.9, hemoglobin was at 7.7, pro-calcitonin level is at 0.9. Noted the pleural fluid cell count was 257 and the red count was 45,000. LDH was 6:15 with a protein count of 3830. On 01/18/2023, the patient is on 2 L of Oxymizer nasal cannula. Up with her on room air oxygen and the patient was able to maintain a saturation above 90%. She is afebrile. Mental status is adequate. Still on IV Rocephin. Awaiting pleural fluid cytology. Noted the pleural fluid was essentially an exudate. A repeat chest x-ray to be done tomorrow. The white cell count of 6.9, hemoglobin is at 7.7, pro-calcitonin level is 0.97. Objective - Vital Signs Vital signs: Vital Signs Temp 99.0 F 01/18/23 07:40 Pulse 115 H 01/18/23 07:40 Resp 20 01/18/23 07:40 BP 166/79 01/18/23 07:40 Pulse Ox 90 L 01/18/23 11:02 FiO2 Intake & Output 01/17/23 01/18/23 01/18/23 18:59 06:59 18:59 Intake Total 240 715 Balance 240 715 Intake: Intake, IV Titration 240 240 Amount Lactated Ringers 1,000 ml 240 240 @ 20 mls/hr IV .Q24H [facility] Rx#:[id number] Oral 475 Other: Voiding Method Toilet Toilet # Voids 2 2 # Bowel Movements 2 1 2 - Exam Gen. appearance the patient is calm and comfortable and currently she is on 2 L of O2 nasal cannula with a pulse ox of 97% Head exam was generally normal. There was no scleral icterus or corneal arcus. Mucous membranes were moist. Neck was supple and without jugular venous distension, thyromegaly, or carotid bruits. Carotids were easily palpable bilaterally. There was no adenopathy. Lungs sounds show diminished breath on the left lung base along with dullness percussion Cardiac exam revealed the PMI to be normally situated and sized. The rhythm was regular and no extrasystoles were noted during several minutes of auscultation. The first and second heart sounds were normal and physiologic splitting of the second heart sound was noted. There were no murmurs, rubs, clicks, or gallops. Abdominal exam revealed normal bowel sounds. The abdomen was soft, non-tender, and without masses, organomegaly, or appreciable enlargement of the abdominal aorta. Examination of the extremities revealed easily palpable radial, femoral and pedal pulses. There was no cyanosis, clubbing or edema. Examination of the skin revealed no evidence of significant rashes, suspicious appearing nevi or other concerning lesions. Neurologically, the patient is alert and awake and communicating. She is still having some underlying confusion. Cranial nerves are intact. No focal neurological deficits. - Labs CBC & Chem 7: 01/17/23 05:05 01/16/23 06:01 Labs: Microbiology - Last 24 Hours (Table) 01/13/23 18:50 Blood Culture - Preliminary Blood 01/13/23 19:05 Blood Culture - Preliminary Blood 01/16/23 11:40 Gram Stain - Preliminary Pleural Fluid Body Fluid Culture - Preliminary 01/17/23 19:05 Group A Strep Throat Culture - Preliminary Throat 01/15/23 12:11 CSF Gram Stain - Preliminary Cerebral Spinal Fluid CSF Culture - Preliminary Assessment and Plan Plan: Altered mentation currently under investigation. Rule out underlying metabolic encephalopathy. Patient has possibly an underlying pneumonia and this could've contributed to the altered mentation. CAT scan of the brain is negative. Neurology is on the case, MRI of the brain is negative, EEG showing mild encephalopathy. Neurologically is improving. The patient is being seen by neurology. Acute febrile illness, currently afebrile Acute hypoxic respiratory failure, currently on 2 L of oxygen by nasal cannula with a pulse ox above 90% Left-sided pleural effusion, with small loculation, consider parapneumonic effusion Chronic immunosuppression with intake of methotrexate Limited arthritis Fibromyalgia Plan Wean FiO2 to room air oxygen Assess the patient's ability to maintain saturation above 90% Continue IV Rocephin Awaiting pleural fluid cytology Clinically improved since the thoracentesis Awaiting pleural fluid cultures and cytology , the pleural fluid essentially -8 Continue IV Rocephin We'll follow
[2023-01-18] MEDS: LACTATED RINGERS 1,000 ML IV SCH (12:20)
[2023-01-18] MEDS: ACETAMINOPHEN TAB 500 MG TAB PO PRN (12:29)
--- NOTE | 2023-01-18 15:45 | P.PN ---
Subjective Progress Note Date: 01/17/23 Principal diagnosis: Fever question of pneumonia Patient is a 67-year-old female with a past medical history significant for rheumatoid arthritis GERD fibromyalgia presenting to the ER last evening for evaluation of mental status changes, patient was noticed to be febri le and had did have a possible left lower lobe pneumonia. Patient is status post a left-sided thoracocentesis completed on 01/16/2023 On today's evaluation that is 01/17/2023, the patient remains to be afebrile, the patient is a breathing comfortably on 2 L nasal cannula oxygen, patient denies having any chest pain, the patient cough has decreased in density mostly dry in nature no nausea no vomiting no abdominal pain or diarrhea Objective - Vital Signs Vital signs: Vital Signs Temp 97.4 F L 01/17/23 11:35 Pulse 85 01/17/23 11:35 Resp 16 01/17/23 11:35 BP 119/69 01/17/23 11:35 Pulse Ox 97 01/17/23 11:35 FiO2 Intake & Output 01/16/23 01/17/23 01/17/23 18:59 06:59 18:59 Intake Total 240 Balance 240 Intake: Intake, IV Titration 240 Amount Lactated Ringers 1,000 ml 240 @ 20 mls/hr IV .Q24H [facility] Rx#:[id number] Other: Voiding Method Diaper Diaper Toilet Incontinent Incontinent # Voids 3 1 # Bowel Movements 1 - Exam GENERAL DESCRIPTION: An elderly female lying in bed in no distress RESPIRATORY SYSTEM: Unlabored breathing , decreased breath sounds at bases HEART: S1 S2 regular rate and rhythm , ABDOMEN: Soft , no tenderness EXTREMITIES: No edema feet - Labs CBC & Chem 7: 01/17/23 05:05 01/16/23 06:01 Labs: Abnormal Lab Results - Last 24 Hours (Table) 01/14/23 01/17/23 01/17/23 Range/Units 10:38 05:05 05:05 RBC 2.41 L (3.80-5.40) m/uL Hgb 7.7 L D (11.4-16.0) gm/dL Hct 23.8 L (34.0-46.0) % RDW 18.0 H (11.5-15.5) % Lymphocytes # 0.4 L (1.0-4.8) k/uL Procalcitonin 0.97 H (0.02-0.09) ng/mL Mycoplasma pneumon IgG 1.51 H (<=0.90) INDEX Microbiology - Last 24 Hours (Table) 01/13/23 18:50 Blood Culture - Preliminary Blood 01/13/23 19:05 Blood Culture - Preliminary Blood 01/16/23 11:40 Anaerobic Culture - Preliminary Pleural Fluid 01/16/23 11:40 Body Fluid Culture - Preliminary Pleural Fluid 01/15/23 12:11 CSF Gram Stain - Preliminary Cerebral Spinal Fluid CSF Culture - Preliminary Assessment and Plan (1) Pneumonia Current Visit: Yes Status: Acute Code(s): J18.9 - PNEUMONIA, UNSPECIFIED ORGANISM SNOMED Code(s): 365472329 Plan: 1-Patient was in the hospital with sepsis in this patient who did have a fever tachycardia did have some respiratory symptoms with evidence of left-sided effusion possible pneumonia and parapneumonic effusion likely community-acquired pathogen complicated infection such as loculated effusion not entirely excluded, patient did have a CT of the chest with tissues small left effusion which may be loculated by radiology report, the patient is status post throcentesis completed on 01/16/2023, cultures currently pending 2-patient did have procalcitonin of 0.76 3-patient impression subclinical improvement and will continue Rocephin 2 g daily and monitor clinical course closely Time with Patient: Less than 30
--- NOTE | 2023-01-18 15:46 | P.PN ---
Subjective Progress Note Date: 01/18/23 Principal diagnosis: Fever question of pneumonia Patient is a 67-year-old female with a past medical history significant for rheumatoid arthritis GERD fibromyalgia presenting to the ER last evening for evaluation of mental status changes, patient was noticed to be febri le and had did have a possible left lower lobe pneumonia. Patient is status post a left-sided thoracocentesis completed on 01/16/2023 On today's evaluation that is 01/18/2023, the patient continues to be afebrile, the patient is a breathing comfortably on room air, patient denies having any chest pain, the patient cough has decreased in in density and not bringing up any sputum, no nausea no vomiting no abdominal pain or diarrhea, patient complaining of weakness Objective - Vital Signs Vital signs: Vital Signs Temp 98.1 F 01/18/23 13:30 Pulse 104 H 01/18/23 11:39 Resp 16 01/18/23 11:39 BP 138/73 01/18/23 11:39 Pulse Ox 90 L 01/18/23 11:39 FiO2 Intake & Output 01/17/23 01/18/23 01/18/23 18:59 06:59 18:59 Intake Total 240 715 Balance 240 715 Intake: Intake, IV Titration 240 240 Amount Lactated Ringers 1,000 ml 240 240 @ 20 mls/hr IV .Q24H [facility] Rx#:[id number] Oral 475 Other: Voiding Method Toilet Toilet Toilet # Voids 2 2 1 # Bowel Movements 2 1 1 - Exam GENERAL DESCRIPTION: An elderly female lying in bed in no distress RESPIRATORY SYSTEM: Unlabored breathing , decreased breath sounds at bases HEART: S1 S2 regular rate and rhythm , ABDOMEN: Soft , no tenderness EXTREMITIES: No edema feet - Labs CBC & Chem 7: 01/17/23 05:05 01/16/23 06:01 Labs: Microbiology - Last 24 Hours (Table) 01/17/23 20:50 Sputum Culture - Preliminary Sputum 01/17/23 20:50 Legionella Culture - Preliminary Sputum 01/13/23 18:50 Blood Culture - Preliminary Blood 01/13/23 19:05 Blood Culture - Preliminary Blood 01/16/23 11:40 Gram Stain - Preliminary Pleural Fluid Body Fluid Culture - Preliminary 01/17/23 19:05 Group A Strep Throat Culture - Preliminary Throat 01/15/23 12:11 CSF Gram Stain - Preliminary Cerebral Spinal Fluid CSF Culture - Preliminary Assessment and Plan (1) Pneumonia Current Visit: Yes Status: Acute Code(s): J18.9 - PNEUMONIA, UNSPECIFIED ORGANISM SNOMED Code(s): 727745376 Plan: 1-Patient was in the hospital with sepsis in this patient who did have a fever tachycardia did have some respiratory symptoms with evidence of left-sided effusion possible pneumonia and parapneumonic effusion likely community-acquired pathogen complicated infection such as loculated effusion not entirely excluded, patient did have a CT of the chest with tissues small left effusion which may be loculated by radiology report, the patient is status post throcentesis completed on 01/16/2023, cultures currently pending 2-patient did have procalcitonin of 0.76, repeat is 0.97 3-patient has shown some clinical improvement and will continue Rocephin 2 g daily and continue supportive care Time with Patient: Less than 30
--- NOTE | 2023-01-18 16:57 | P.PN ---
Progress Note - Text Progress Note Date: 01/18/23 Hospital course: This is a 67-year-old female patient, presented to the hospital because of an a ltered mental status. The daughter has noted that the patient has been having some increased cough and symptoms of respiratory tract infection. The patient's granddaughters has been having also URIs and subsequently the patient started having increased cough. She denies having any pleurisy or hemoptysis. The patient's family noted that she has been become progressively more confused. She did have chills and currently in the hospital she is running a fever. She came into the emergency and the patient underwent further investigation. Temperature max was 102.7. White cell count was 8. Covid 19 testing, influenza testing, and RSV testing were all negative. UA was negative. Chest x-ray showed a left lower lobe consolidation and pleural effusion. Computed tomography scan of the chest showed cerebral atrophy and chronic perivascular white matter disease changes. She has remote history of smoking and currently nonsmoker. No agitation. No seizure activity. Neurologic been involved based on underlying confusion. Note that she doesn't have any focal neurological deficits Patient being followed by neurology and pulmonary. January 16: I assumed care of the patient from [facility] today. Patient daughter the bedside. She states patient is about 60% better. More oriented. Did eat a bit. This afternoon 9 50 mL of turbid colored fluid was removed without difficulty by Dr. Lowery. Acyclovir was discontinued by neurology. Risperdal is being cut back by neurology. CSF fluid otherwise appears to be unremarkable. - 0 nucleated cells. Oral intake about 50% IV ceftriaxone January 17: Patient sitting up in a recliner. For more cheerful awake. Oral intake much improved. Daughter present. Much happy about improvement. Breathing better. IV ceftriaxone. Cultures from pleural fluid pending. January 18: Patient daughter and the son at the bedside. A bit tired today. Decreased appetite. Patient looking forward to eat lunch. Breathing stable. Cultures pending. IV ceftriaxone. Active Medications Acetaminophen (Acetaminophen Tab 500 Mg Tab) 1,000 mg PO Q6HR PRN PRN Reason: Fever and/ or Pain Last Admin: 01/18/23 12:29 Dose: 1,000 mg Ascorbic Acid (Ascorbic Acid 500 Mg Tab) 500 mg PO MoWeFr@0900 [facility] Last Admin: 05/12/23 08:38 Dose: 500 mg Aspirin (Aspirin 81 Mg) 81 mg PO DAILY [facility] Last Admin: 01/18/23 09:56 Dose: 81 mg Cholecalciferol (Cholecalciferol 25 Mcg (1000 Iu) Tablet) 25 mcg PO DAILY [facility] Last Admin: 01/18/23 09:55 Dose: 25 mcg Ezetimibe (Ezetimibe 10 Mg Tab) 10 mg PO DAILY [facility] Last Admin: 01/18/23 09:56 Dose: 10 mg Enoxaparin Sodium (Enoxaparin 40 Mg/0.4 Ml Syringe) 40 mg SQ DAILY [facility] Last Admin: 01/18/23 09:54 Dose: 40 mg Ferrous Sulfate (Ferrous Sulfate 325 Mg Tab) 325 mg PO MoWeFr@0900 [facility] Last Admin: 01/16/23 08:37 Dose: 325 mg Folic Acid (Folic Acid 1 Mg Tab) 1 mg PO DAILY [facility] Last Admin: 01/18/23 09:55 Dose: 1 mg Lactated Ringer's (Lactated Ringers) 1,000 mls @ 20 mls/hr IV .Q24H [facility] Last Admin: 01/18/23 12:20 Dose: Not Given Ceftriaxone Sodium 2 gm/ (Sodium Chloride) 50 mls @ 100 mls/hr IVPB Q24HR [facility]; Protocol Last Admin: 01/18/23 09:56 Dose: 100 mls/hr Ibuprofen (Ibuprofen 600 Mg Tab) 600 mg PO TID PRN PRN Reason: Fever Last Admin: 01/17/23 08:40 Dose: 600 mg Miscellaneous Information (Pneumonia Protocol Utilized 1 Each Misc) 1 each PO ONCE PRN PRN Reason: Per Protocol Pantoprazole Sodium (Pantoprazole 40 Mg Tablet) 40 mg PO HS [facility] Last Admin: 01/17/23 19:33 Dose: 40 mg On examination: VITAL SIGNS: 98.3, 104, 16, 1:30/73, 90% on room air GENERAL APPEARANCE: Laying in bed, tired HEENT: Normal external appearance of nose and ear. Oral cavity normal EYES: Pupils equal. Conjunctiva normal. NECK: JVD not raised. Mass not palpable. RESPIRATORY: Respiratory effort increased. Lungs coarse crackles-on the left side CARDIOVASCULAR: First and second sounds normal. No edema. ABDOMEN: Soft. Liver and spleen not palpable. No tenderness. No mass palpable. PSYCHIATRY: AO 3, mood affect normal INVESTIGATIONS, reviewed in the clinical context: January 17: White count 6.9 hemoglobin 7.7 platelets 282. Procalcitonin 0.97 January 16: White count 8.8 hemoglobin 7.1 platelets 251 potassium 3.4 creatinine 1.0 Previous labs: Procalcitonin 0.76 CSF: Protruding. 70 glucose 64 total protein 38 Influenza type A/B/RSV/COVID-19: Not detected Venous Doppler: Negative for DVT, bilateral Brain MRI: Nonspecific white matter changes. EEG: No epileptiform activity. Some suggestion of encephalopathy. Assessment and plan: -Altered mental status likely metabolic encephalopathy/delirium from pneumonia and parapneumonic effusion. Other neurological workup has been negative.: Better -Left-sided pneumonia with a parapneumonic effusion IV ceftriaxone -Left parapneumonic effusion, 9 50 mL turbid fluid removed on January [address] Lowery Await cultures and cytology -GERD PPI -Depression and anxiety Trazodone, Effexor X are -Hyperlipidemia Zetia -Rheumatoid arthritis Methotrexate,xeljanz-both currently on hold because of infection IV ceftriaxone. Await culture and cytology.. Discussed with daughter and son at the bedside.. Ambulate in the hallway. Repeat chest x-ray tomorrow
[2023-01-18] MEDS: PANTOPRAZOLE 40 MG TABLET PO SCH (20:33)
[2023-01-19 06:58] LABS: Anisocytosis Slight; HGB 7.4 gm/dL (11.4-16.0); Hypochromasia Slight; MCH 31.4 pg (25.0-35.0); MCHC 32.2 g/dL (31.0-37.0); MCV 97.6 fL (80.0-100.0); Macrocytosis Slight; Mean Platelet Volume 8.3; Platelet Count 333 k/uL (150-450); RBC 2.35 m/uL (3.80-5.40); RDW 18.6 % (11.5-15.5); WBC 7.8 k/uL (3.8-10.6)
[2023-01-19 07:32] LABS: African American GFR (CKD) >90 (>60 ml/min/1.73 sqM); Anion Gap 7 mmol/L; Blood Urea Nitrogen 9 mg/dL (7-17); Calcium 8.3 mg/dL (8.4-10.2); Carbon Dioxide 26 mmol/L (22-30); Chloride 104 mmol/L (98-107); Glucose 103 mg/dL (74-99); Non-African American GFR(CKD) 80 (>60 ml/min/1.73 sqM); Potassium 3.2 mmol/L (3.5-5.1); Sodium 137 mmol/L (137-145)
[2023-01-19 08:59] LABS: Eosinophils # (M) 0.23 k/uL (0-0.7); Lymphocytes # (M) 0.94 k/uL (1.0-4.8); Monocytes # (M) 0.39 k/uL (0-1.0); Neutrophils # (M) 6.24 k/uL (1.3-7.7); Neutrophils % (M) 80 %; Nucleated Red Blood Cells 0 /100 WBC (0-0); Total Cells Counted 100
[2023-01-19 09:09] LABS: Rouleaux Present
--- NOTE | 2023-01-19 09:09 | XR ---
EXAMINATION TYPE: XR chest 2V DATE OF EXAM: 01/19/2023 COMPARISON: 01/16/2023 TECHNIQUE: PA and lateral views submitted. HISTORY: Pneumonia FINDINGS: There is a diffuse coarsened interstitial pattern with left lower lobe infiltrate and bilateral small effusion. Atherosclerotic change aorta. Underlying COPD suspected. Heart size stable. There is biapi mendy pleural thickening. Hypertrophic and degenerative change of the spine. IMPRESSION: 1. Left lower lobe infiltrate and small effusion with diffuse interstitial pattern could be on the ba sis of CHF correlate clinically to assess for underlying pneumonia with superimposed interstitial pne umonitis.
[2023-01-19] MEDS: ENOXAPARIN 40 MG/0.4 ML SYRINGE SQ SCH (09:27)
[2023-01-19] MEDS: FERROUS SULFATE 325 MG TAB PO SCH (09:27)
[2023-01-19] MEDS: EZETIMIBE 10 MG TAB PO SCH (09:27)
[2023-01-19] MEDS: FOLIC ACID 1 MG TAB PO SCH (09:27)
[2023-01-19] MEDS: ASPIRIN 81 MG PO SCH (09:27)
[2023-01-19] MEDS: CHOLECALCIFEROL 25 MCG (1000 IU) TABLET PO SCH (09:27)
[2023-01-19] MEDS: ASCORBIC ACID 500 MG TAB PO SCH (09:27)
--- NOTE | 2023-01-19 11:47 | P.PN ---
Subjective Progress Note Date: 01/19/23 This is a 67-year-old female patient, presented to the hospital because of an altered mental status. The daughter has noted that the patient has been having some increased cough and symptoms of respiratory tract infection. The patient's granddaughters has been having also URIs and subsequently the patient started having increased cough. She denies having any pleurisy or hemoptysis. The patient's family noted that she has been become progressively more confused. She did have chills and currently in the hospital she is running a fever. She came into the emergency and the patient underwent further investigation. Temperature max was 102.7. White cell count was 8. Covid 19 testing, influenza testing, and RSV testing were all negative. UA was negative. Chest x-ray showed a left lower lobe consolidation and pleural effusion. Computed tomography scan of the chest showed cerebral atrophy and chronic perivascular white matter disease changes. The patient was started on Rocephin and Zithromax in the pulmonary consultation was requested. She has remote history of smoking and currently she is a nonsmoker. No agitation. No seizure activity. Neurologic been involved based on underlying confusion. Note that she doesn't have any focal neurological deficits. On 01/15/2023, she is being seen in follow-up. The patient was hospitalized for altered mentation. Her mentation gradually improving. Carotids on the case. The patient had an MRI of the brain that showed no acute abnormalities. There was some nonspecific white matter changes related to small vessel ischemic disease. EEG was abnormal with background slowing suggestive of mild encephalopathy. As mentioned, there was a concern of an underlying pneumonia. There was is also a left-sided pleural effusion. A CAT scan of chest was done yesterday showed a small loculated left-sided pleural effusion without any mediastinal lymphadenopathy. No other acute pulmonary abnormalities were noted. The patient remains on room air oxygen. Breath sounds are improved on today's evaluation of the left. The white cell count 11 hemoglobin is at 7.8 and there is a 2 g up in hemoglobin since yesterday without evidence of any GI bleed. D- dimer was at 1.9 and the Doppler of the rectum is were negative. BUN is at 12 a creatinine 1.2 and sodium levels of 139. Calcium is at 8.6. LFTs are normal. Pro-calcitonin level is at 0.7. On today's evaluation of 01/16/2023, seeing the patient for a follow-up. Overnight, the patient became slightly more short of breath. She was unable to breathe. There was a drop in her oxygenation also. She was placed on 6 L of O2 nasal cannula and subsequently she was brought back down to 2 L. Noted the repeat chest x-ray was done and the patient showed a left-sided pleural effusion which is slightly larger. Ultrasound marking of the left-sided pleural effusion was also done. Neurologically, the patient underwent a lumbar puncture and the findings are negative and the neurologist is still on the case pH was having some movement abnormalities and she responded to treatment. CAT scan of the brain shows some atrophy. MRI can be performed as clinically indicated. EEG showed some mild encephalopathy. The hemoglobin is at 7 and the rest of the electrolytes are all within normal limits. Pro-calcitonin level was at 1.1 and 1.08 respectively. The WBC count of 8.8 with a hemoglobin of 7.1. On today's evaluation of 06/19/2023 the patient remains on 2 L of oxygen by nasal cannula and she is also on IV Rocephin. I performed a thoracentesis on her and removed approximately 900 mL of pleural fluid from her left lung. No complications. The fluid is transudate. The white cell count is quite elevated and symptoms is elevated LDH and protein and a glucose slightly lower. Awaiting the pleural fluid cultures and cytology. Meanwhile, the chest x-ray that showed no pneumothorax, and showed some infiltration and consolidation involving the left lung base. No altered mentation. Mentation is improved considerably for now. WBC count at 6.9, hemoglobin was at 7.7, pro-calcitonin level is at 0.9. Noted the pleural fluid cell count was 257 and the red count was 45,000. LDH was 6:15 with a protein count of 3830. On 01/18/2023, the patient is on 2 L of Oxymizer nasal cannula. Up with her on room air oxygen and the patient was able to maintain a saturation above 90%. She is afebrile. Mental status is adequate. Still on IV Rocephin. Awaiting pleural fluid cytology. Noted the pleural fluid was essentially an exudate. A repeat chest x-ray to be done tomorrow. The white cell count of 6.9, hemoglobin is at 7.7, pro-calcitonin level is 0.97. The patient is seen today 01/19/2023 in follow-up on the regular medical floor. She is currently sitting up in bed. Awake and alert in no acute distress. Oriented 3. No worsening shortness of breath, cough or congestion. Maintaining O2 saturations in the 90s on room air. She's been afebrile. Hemodynamically stable. Sensory reveals a left lower lobe infiltrate with small effusion. Blood cultures revealed no growth. Pleural fluid cultures reveal no growth. Fluid analysis was exudate with a protein of 3.8 and the LDH is 615. Sputum cultures revealed no growth. White count 7.8. Hemoglobin 7.4. Sodium 137. Potassium 3.2. Bicarb 26. BUN 9. Creatinine 0.77. Glucose 103. She remains on ceftriaxone. Lovenox for DVT prophylaxis. Objective - Vital Signs Vital signs: Vital Signs Temp 98.3 F 01/19/23 11:27 Pulse 99 01/19/23 11:27 Resp 18 01/19/23 11:27 BP 151/69 01/19/23 11:27 Pulse Ox 93 L 01/19/23 11:27 FiO2 Intake & Output 01/18/23 01/19/23 01/19/23 18:59 06:59 18:59 Intake Total 50 600 Balance 50 600 Intake: Intake, IV Titration 50 480 Amount Lactated Ringers 1,000 ml 480 @ 20 mls/hr IV .Q24H [facility] Rx#:[id number] cefTRIAXone 2 gm In 50 Sodium Chloride 0.9% 50 ml @ 100 mls/hr IVPB Q24HR [facility] Rx#:[id number] Oral 120 Other: Voiding Method Toilet Toilet Toilet Bedside Commode Bedside Commode # Voids 1 3 1 # Bowel Movements 1 1 - Exam GENERAL EXAM: Alert, oriented pleasant 67-year-old female, on room air, comfortable in no apparent distress. HEAD: Normocephalic. EYES: Normal reaction of pupils, equal size. NOSE: Clear with pink turbinates. THROAT: No erythema or exudates. NECK: No masses, no JVD. CHEST: No chest wall deformity. LUNGS: Equal air entry with crackles in the left lung base. CVS: S1 and S2 normal with no audible murmur, regular rhythm. ABDOMEN: No hepatosplenomegaly, normal bowel sounds, no guarding or rigidity. SPINE: No scoliosis or deformity SKIN: No rashes CENTRAL NERVOUS SYSTEM: No focal deficits, tone is normal in all 4 extremities. EXTREMITIES: There is no peripheral edema. No clubbing, no cyanosis. Periphera l pulses are intact. - Labs CBC & Chem 7: 01/19/23 06:14 01/19/23 06:14 Labs: Abnormal Lab Results - Last 24 Hours (Table) 01/19/23 01/19/23 Range/Units 06:14 06:14 RBC 2.35 L (3.80-5.40) m/uL Hgb 7.4 L (11.4-16.0) gm/dL Hct 23.0 L (34.0-46.0) % RDW 18.6 H (11.5-15.5) % Lymphocytes # (Manual) 0.94 L (1.0-4.8) k/uL Potassium 3.2 L (3.5-5.1) mmol/L Glucose 103 H (74-99) mg/dL Calcium 8.3 L (8.4-10.2) mg/dL Microbiology - Last 24 Hours (Table) 01/17/23 20:50 Gram Stain - Preliminary Sputum Sputum Culture - Preliminary [place] albicans 01/13/23 18:50 Blood Culture - Final Blood 01/13/23 19:05 Blood Culture - Final Blood 01/16/23 11:40 Anaerobic Culture - Preliminary Pleural Fluid 01/16/23 11:40 Gram Stain - Preliminary Pleural Fluid Body Fluid Culture - Preliminary 01/15/23 12:11 CSF Gram Stain - Preliminary Cerebral Spinal Fluid CSF Culture - Preliminary 01/17/23 20:50 Legionella Culture - Preliminary Sputum Assessment and Plan Assessment: Altered mentation currently under investigation. Rule out underlying metabolic encephalopathy. Patient has possibly an underlying pneumonia and this could've contributed to the altered mentation. CAT scan of the brain is negative. Neurology is on the case, MRI of the brain is negative, EEG showing mild encephalopathy. Neurologically recovered. Acute febrile illness, currently afebrile Acute hypoxic respiratory failure, currently on 2 L of oxygen by nasal cannula with a pulse ox above 90% Left-sided pleural effusion, with small loculation, consider parapneumonic effusion or pleural fluid was exudative with a protein of 3.8 and LDH of 615 Chronic immunosuppression with intake of methotrexate Limited arthritis Fibromyalgia Plan: The patient was seen and evaluated Chest x-ray, labs and medications reviewed Alert and oriented 3 Stable and on room air Continued on ceftriaxone Cultures are revealing no growth thus far Cleared for discharge from the pulmonary standpoint I have personally seen and examined the patient, performed the documentation and the assessment and plan as written. Number of minutes spent on the visit: 10.
[2023-01-19 14:41] LABS: Zinc, Serum <25 ug/dL (60-130)
[2023-01-19] MEDS ORDERED: POTASSIUM CHLORIDE ER 20 MEQ TAB.ER PO STA (18:22)
--- NOTE | 2023-01-19 18:24 | P.PN ---
Progress Note - Text Progress Note Date: 01/19/23 Hospital course: This is a 67-year-old female patient, presented to the hospital because of an a ltered mental status. The daughter has noted that the patient has been having some increased cough and symptoms of respiratory tract infection. The patient's granddaughters has been having also URIs and subsequently the patient started having increased cough. She denies having any pleurisy or hemoptysis. The patient's family noted that she has been become progressively more confused. She did have chills and currently in the hospital she is running a fever. She came into the emergency and the patient underwent further investigation. Temperature max was 102.7. White cell count was 8. Covid 19 testing, influenza testing, and RSV testing were all negative. UA was negative. Chest x-ray showed a left lower lobe consolidation and pleural effusion. Computed tomography scan of the chest showed cerebral atrophy and chronic perivascular white matter disease changes. She has remote history of smoking and currently nonsmoker. No agitation. No seizure activity. Neurologic been involved based on underlying confusion. Note that she doesn't have any focal neurological deficits Patient being followed by neurology and pulmonary. January 16: I assumed care of the patient from [facility] today. Patient daughter the bedside. She states patient is about 60% better. More oriented. Did eat a bit. This afternoon 9 50 mL of turbid colored fluid was removed without difficulty by Dr. Lowery. Acyclovir was discontinued by neurology. Risperdal is being cut back by neurology. CSF fluid otherwise appears to be unremarkable. - 0 nucleated cells. Oral intake about 50% IV ceftriaxone January 17: Patient sitting up in a recliner. For more cheerful awake. Oral intake much improved. Daughter present. Much happy about improvement. Breathing better. IV ceftriaxone. Cultures from pleural fluid pending. January 18: Patient daughter and the son at the bedside. A bit tired today. Decreased appetite. Patient looking forward to eat lunch. Breathing stable. Cultures pending. IV ceftriaxone. January 19: Oral intake fair. Did walk a bit in the hallway. Cultures pending this morning. IV ceftriaxone. Check sticks a shows left pleural effusion/infiltrate. Active Medications Acetaminophen (Acetaminophen Tab 500 Mg Tab) 1,000 mg PO Q6HR PRN PRN Reason: Fever and/ or Pain Last Admin: 05/14/23 12:29 Dose: 1,000 mg Ascorbic Acid (Ascorbic Acid 500 Mg Tab) 500 mg PO MoWeFr@0900 [facility] Last Admin: 01/19/23 09:27 Dose: 500 mg Aspirin (Aspirin 81 Mg) 81 mg PO DAILY [facility] Last Admin: 01/19/23 09:27 Dose: 81 mg Cholecalciferol (Cholecalciferol 25 Mcg (1000 Iu) Tablet) 25 mcg PO DAILY [facility] Last Admin: 01/19/23 09:27 Dose: 25 mcg Ezetimibe (Ezetimibe 10 Mg Tab) 10 mg PO DAILY [facility] Last Admin: 01/19/23 09:27 Dose: 10 mg Enoxaparin Sodium (Enoxaparin 40 Mg/0.4 Ml Syringe) 40 mg SQ DAILY [facility] Last Admin: 01/19/23 09:27 Dose: 40 mg Ferrous Sulfate (Ferrous Sulfate 325 Mg Tab) 325 mg PO MoWeFr@0900 [facility] Last Admin: 01/19/23 09:27 Dose: 325 mg Folic Acid (Folic Acid 1 Mg Tab) 1 mg PO DAILY [facility] Last Admin: 01/19/23 09:27 Dose: 1 mg Ceftriaxone Sodium 2 gm/ (Sodium Chloride) 50 mls @ 100 mls/hr IVPB Q24HR [facility]; Protocol Last Admin: 01/19/23 09:25 Dose: 100 mls/hr Ibuprofen (Ibuprofen 600 Mg Tab) 600 mg PO TID PRN PRN Reason: Fever Last Admin: 01/17/23 08:40 Dose: 600 mg Miscellaneous Information (Pneumonia Protocol Utilized 1 Each Misc) 1 each PO ONCE PRN PRN Reason: Per Protocol Pantoprazole Sodium (Pantoprazole 40 Mg Tablet) 40 mg PO HS [facility] Last Admin: 01/18/23 20:33 Dose: 40 mg Potassium Chloride (Potassium Chloride Er 20 Meq Tab.Er) 40 meq PO ONCE [facility] Stop: 01/19/23 18:23 On examination: VITAL SIGNS: 98.3, 99, 18, 151/69, 93% room air GENERAL APPEARANCE: Laying in bed, tired HEENT: Normal external appearance of nose and ear. Oral cavity normal EYES: Pupils equal. Conjunctiva normal. NECK: JVD not raised. Mass not palpable. RESPIRATORY: Respiratory effort increased. Lungs coarse crackles-on the left side CARDIOVASCULAR: First and second sounds normal. No edema. ABDOMEN: Soft. Liver and spleen not palpable. No tenderness. No mass palpable. PSYCHIATRY: AO 3, mood affect normal INVESTIGATIONS, reviewed in the clinical context: January 17: White count 6.9 hemoglobin 7.7 platelets 282. Procalcitonin 0.97 January 16: White count 8.8 hemoglobin 7.1 platelets 251 potassium 3.4 creatinine 1.0 Previous labs: Procalcitonin 0.76 CSF: Protruding. 70 glucose 64 total protein 38 Influenza type A/B/RSV/COVID-19: Not detected Venous Doppler: Negative for DVT, bilateral Brain MRI: Nonspecific white matter changes. EEG: No epileptiform activity. Some suggestion of encephalopathy. Assessment and plan: -Altered mental status likely metabolic encephalopathy/delirium from pneumonia and parapneumonic effusion. Other neurological workup has been negative.: Much improved -Left-sided pneumonia with a parapneumonic effusion: Improving IV ceftriaxone -Left parapneumonic effusion, 9 50 mL turbid fluid removed on January [address] Lowery: Transudate Await cultures and cytology -GERD PPI -Depression and anxiety Trazodone, Effexor X are -Hyperlipidemia Zetia -Rheumatoid arthritis Methotrexate,xeljanz-both currently on hold because of infection IV ceftriaxone. Await culture and cytology.. Getting better. Hopefully discharge tomorrow.
--- NOTE | 2023-01-19 19:04 | P.PN ---
Subjective Progress Note Date: 01/19/23 Patient initially seen by Dr. Presley Chatman. Please refer to his note for details. Patient is a 67-year-old female with altered mental status and reported chorea. Patient likely has pneumonia and pleural effusion. Neurologically patient is improving. Patient has some blood tests pending. Patient's daughter was also on the cell phone at the time of this encounter. Patient denies any involuntary movement. Patient tells me that she fell in the bathroom, stood up, bounced off and laid in the bed. She was noted to have some altered mental status. She was brought to the hospital, and found to have pneumonia. Patient's daughter denies any previous history of tremors. Some other workup during his hospital visit consisted of: Initial temperature is 102.7 Fahrenheit --resolved. White blood cell is 8.0 thousand. MCV is 100.3. Vitamin B12 is 450 Folate was 20.9 TSH is 2.0 to HbA1c: 5.9. Antistreptolysin O antibody is 25 normal AST and ALT is within normal limits. SARS-CoV-2 PCR is not detected. Influenza A/B and RSV are negative. Urine Analysis I feel is not suggestive of underlying ureter tract infection. Chest x-rays reported a similar moderate size left pleural effusion with adjacent airspace opacity which may represent atelectasis versus pneumonia. CT of the head is reported as atrophy with chronic appearing periventricular white matter ischemic type changes. Follow-up MRI can be performed as clinically indicated. Routine EEG is abnormal. The back on slowing suggestive of mild encephalopathy. Otherwise there is no focal slowing, epileptiform discharges or seizure on the EEG. MRI the brain is reported as no evidence of intracranial mass, acute/subacute infarct or abnormal enhancement. Nonspecific white matter changes, likely related to small vessel ischemic disease. I personally reviewed MRI, agree with the findings. No acute ischemic process. CSF is clear, colorless, red blood cells 0, nuclear cells 0, glucose is 64 and a protein is 38. Objective - Vital Signs Vital signs: Vital Signs Temp 98.3 F 01/19/23 11:27 Pulse 99 01/19/23 11:27 Resp 18 01/19/23 11:27 BP 151/69 01/19/23 11:27 Pulse Ox 93 L 01/19/23 11:27 FiO2 Intake & Output 01/18/23 01/19/2323 18:59 06:59 18:59 Intake Total 50 600 Balance 50 600 Intake: Intake, IV Titration 50 480 Amount Lactated Ringers 1,000 ml 480 @ 20 mls/hr IV .Q24H CARTER Rx#:[id number] cefTRIAXone 2 gm In 50 Sodium Chloride 0.9% 50 ml @ 100 mls/hr IVPB Q24HR CARTER Rx#:[id number] Oral 120 Other: Voiding Method Toilet Toilet Toilet Bedside Commode Bedside Commode # Voids 1 3 1 # Bowel Movements 1 1 1 - Exam Patient's mental status is normal. Patient knows it is 01/19/2023 and that she is in [facility] in [place] and in [facility]. She knows that she lives in [place]. Her speech and language functions are normal. Affect is normal. Cranial nerves are normal. Visual lei are full, extraocular muscles are intact. Face is symmetric and tongue protrudes the midline. Pupils are equal, round and reacting. On muscle strength testing there is no pronator drift and the strength is normal in arms and legs. There is no tremors of outstretched hands. No suellen. Sensations equal. No ataxia for [id number] testing. - Labs CBC & Chem 7: 01/19/23 06:14 01/19/23 06:14 Labs: Abnormal Lab Results - Last 24 Hours (Table) 01/16/23 01/19/23 01/19/23 Range/Units 06:01 06:14 06:14 RBC 2.35 L (3.80-5.40) m/uL Hgb 7.4 L (11.4-16.0) gm/dL Hct 23.0 L (34.0-46.0) % RDW 18.6 H (11.5-15.5) % Lymphocytes # (Manual) 0.94 L (1.0-4.8) k/uL Potassium 3.2 L (3.5-5.1) mmol/L Glucose 103 H (74-99) mg/dL Calcium 8.3 L (8.4-10.2) mg/dL Zinc <25 L (60-130) ug/dL Microbiology - Last 24 Hours (Table) 01/17/23 20:50 Gram Stain - Preliminary Sputum Sputum Culture - Preliminary Tierra albicans 01/13/23 18:50 Blood Culture - Final Blood 01/13/23 19:05 Blood Culture - Final Blood 01/16/23 11:40 Anaerobic Culture - Preliminary Pleural Fluid 01/16/23 11:40 Gram Stain - Preliminary Pleural Fluid Body Fluid Culture - Preliminary 01/15/23 12:11 CSF Gram Stain - Preliminary Cerebral Spinal Fluid CSF Culture - Preliminary Assessment and Plan Assessment: This is a 67-year-old woman who presented emergency department because of altered mental status. Encephalopathy, likely due to metabolic encephalopathy from pneumonia. No evidence of intracranial infection. CSF is negative and no evidence for encephalitis. Mentation back to normal. Acute Chorea (versus ?metabolic tremor from encephalopathy)--seems likely due to underlying pneumonia---improved. Was not on any antidopaminergic drugs in the past. No involuntary movement noticed at this time. Large left pleural effusion Chronic immunosuppression with intake of methotrexate Zinc deficiency Plan: For her Chorea: Pending Streptococcus group A culture, copper, zinc level <25. We will start zinc replacement. Dr. Presley Chatman tried patient on Risperdal, and symptoms have resolved. Patient is off Risperdal. ID and pulmonary team are on board. We'll defer the modification of antibiotic to the ID and pulmonary team. Psychiatry team is also consulted. We'll defer the rest of medical management to primary team Discussed with patient's daughter in detail as well. Neurologically clear.
[2023-01-19] MEDS: ZINC SULFATE 220 MG CAP PO SCH (19:12)
[2023-01-19] MEDS: PANTOPRAZOLE 40 MG TABLET PO SCH (20:09)
[2023-01-20 07:16] LABS: Anisocytosis Slight; HCT 24.5 % (34.0-46.0); HGB 7.6 gm/dL (11.4-16.0); Hypochromasia Slight; MCH 30.5 pg (25.0-35.0); MCV 98.6 fL (80.0-100.0); Macrocytosis Slight; Mean Platelet Volume 8.2; Platelet Count 395 k/uL (150-450); RBC 2.49 m/uL (3.80-5.40); RDW 18.7 % (11.5-15.5); WBC 8.2 k/uL (3.8-10.6)
[2023-01-20 07:18] LABS: African American GFR (CKD) 79 (>60 ml/min/1.73 sqM); Anion Gap 5 mmol/L; Blood Urea Nitrogen 8 mg/dL (7-17); Calcium 8.4 mg/dL (8.4-10.2); Carbon Dioxide 30 mmol/L (22-30); Chloride 104 mmol/L (98-107); Glucose 101 mg/dL (74-99); Non-African American GFR(CKD) 68 (>60 ml/min/1.73 sqM); Potassium 3.8 mmol/L (3.5-5.1); Sodium 139 mmol/L (137-145)
--- NOTE | 2023-01-20 07:24 | P.PN ---
Subjective Progress Note Date: 01/19/23 Principal diagnosis: Fever question of pneumonia Patient is a 67-year-old female with a past medical history significant for rheumatoid arthritis GERD fibromyalgia presenting to the ER last evening for evaluation of mental status changes, patient was noticed to be febri le and had did have a possible left lower lobe pneumonia. Patient is status post a left-sided thoracocentesis completed on 01/16/2023 On today's evaluation that is 01/19/2023, the patient remains to be afebrile, the patient is a breathing comfortably on room air, patient denies having any chest pain, the patient cough has decreased in in density and mostly dry in nature, no nausea no vomiting no abdominal pain or diarrhea, patient is feeling better today Objective - Vital Signs Vital signs: Vital Signs Temp 98.3 F 01/19/23 11:27 Pulse 99 01/19/23 11:27 Resp 18 01/19/23 11:27 BP 151/69 01/19/23 11:27 Pulse Ox 93 L 01/19/23 11:27 FiO2 Intake & Output 01/18/23 01/19/23 01/19/23 18:59 06:59 18:59 Intake Total 50 600 Balance 50 600 Intake: Intake, IV Titration 50 480 Amount Lactated Ringers 1,000 ml 480 @ 20 mls/hr IV .Q24H CARTER Rx#:[id number] cefTRIAXone 2 gm In 50 Sodium Chloride 0.9% 50 ml @ 100 mls/hr IVPB Q24HR CARTER Rx#:[id number] Oral 120 Other: Voiding Method Toilet Toilet Toilet Bedside Commode Bedside Commode # Voids 1 3 1 # Bowel Movements 1 1 - Exam GENERAL DESCRIPTION: An elderly female lying in bed in no distress RESPIRATORY SYSTEM: Unlabored breathing , decreased breath sounds at bases HEART: S1 S2 regular rate and rhythm , ABDOMEN: Soft , no tenderness EXTREMITIES: No edema feet - Labs CBC & Chem 7: 01/20/23 05:51 01/20/23 05:51 Labs: Abnormal Lab Results - Last 24 Hours (Table) 01/19/23 01/19/23 Range/Units 06:14 06:14 RBC 2.35 L (3.80-5.40) m/uL Hgb 7.4 L (11.4-16.0) gm/dL Hct 23.0 L (34.0-46.0) % RDW 18.6 H (11.5-15.5) % Lymphocytes # (Manual) 0.94 L (1.0-4.8) k/uL Potassium 3.2 L (3.5-5.1) mmol/L Glucose 103 H (74-99) mg/dL Calcium 8.3 L (8.4-10.2) mg/dL Microbiology - Last 24 Hours (Table) 01/17/23 20:50 Gram Stain - Preliminary Sputum Sputum Culture - Preliminary Tierra albicans 01/13/23 18:50 Blood Culture - Final Blood 01/13/23 19:05 Blood Culture - Final Blood 01/16/23 11:40 Anaerobic Culture - Preliminary Pleural Fluid 01/16/23 11:40 Gram Stain - Preliminary Pleural Fluid Body Fluid Culture - Preliminary 01/15/23 12:11 CSF Gram Stain - Preliminary Cerebral Spinal Fluid CSF Culture - Preliminary 01/17/23 20:50 Legionella Culture - Preliminary Sputum Assessment and Plan (1) Pneumonia Current Visit: Yes Status: Acute Code(s): J18.9 - PNEUMONIA, UNSPECIFIED ORGANISM SNOMED Code(s): 320308457 Plan: 1-Patient was in the hospital with sepsis in this patient who did have a fever tachycardia did have some respiratory symptoms with evidence of left-sided effusion possible pneumonia and parapneumonic effusion likely community-acquired pathogen complicated infection such as loculated effusion not entirely excluded, patient did have a CT of the chest with tissues small left effusion which may be loculated by radiology report, the patient is status post throcentesis completed on 01/16/2023, cultures so far negative 2-patient did have procalcitonin of 0.76, repeat is 0.97 3-patient has shown some clinical improvement and plan is to continue Rocephin 2 g daily and a short course of oral Ceftin on discharge Time with Patient: Less than 30
[2023-01-20 08:07] VITALS: BP 148/64; PULSE 99; RESP 17; TEMP 98.3
[2023-01-20] MEDS: ZINC SULFATE 220 MG CAP PO SCH (08:35)
[2023-01-20] MEDS: EZETIMIBE 10 MG TAB PO SCH (08:35)
[2023-01-20] MEDS: ENOXAPARIN 40 MG/0.4 ML SYRINGE SQ SCH (08:35)
[2023-01-20] MEDS: CHOLECALCIFEROL 25 MCG (1000 IU) TABLET PO SCH (08:35)
[2023-01-20] MEDS: ASPIRIN 81 MG PO SCH (08:36)
[2023-01-20] MEDS: FOLIC ACID 1 MG TAB PO SCH (08:36)
[2023-01-20] MEDS: ACETAMINOPHEN TAB 500 MG TAB PO PRN (08:37)
[2023-01-20 09:00] LABS: Band Neutrophils % 1 %; Basophils # (M) 0.08 k/uL (0-0.2); Eosinophils # (M) 0.25 k/uL (0-0.7); Metamyelocytes # (M) 0.08 k/uL (0); Metamyelocytes % 1 %; Monocytes # (M) 1.56 k/uL (0-1.0); Myelocytes # (M) 0.16 k/uL (0); Myelocytes % 2 %; Neutrophils % (M) 65 %; Nucleated Red Blood Cells 0 /100 WBC (0-0); Total Cells Counted 200
[2023-01-20 10:54] LABS: VDRL, Qualitative CSF Nonreactive (Nonreactive)
--- NOTE | 2023-01-20 11:36 | P.PN ---
Subjective Progress Note Date: 01/20/23 This is a 67-year-old female patient, presented to the hospital because of an altered mental status. The daughter has noted that the patient has been having some increased cough and symptoms of respiratory tract infection. The patient's granddaughters has been having also URIs and subsequently the patient started having increased cough. She denies having any pleurisy or hemoptysis. The patient's family noted that she has been become progressively more confused. She did have chills and currently in the hospital she is running a fever. She came into the emergency and the patient underwent further investigation. Temperature max was 102.7. White cell count was 8. Covid 19 testing, influenza testing, and RSV testing were all negative. UA was negative. Chest x-ray showed a left lower lobe consolidation and pleural effusion. Computed tomography scan of the chest showed cerebral atrophy and chronic perivascular white matter disease changes. The patient was started on Rocephin and Zithromax in the pulmonary consultation was requested. She has remote history of smoking and currently she is a nonsmoker. No agitation. No seizure activity. Neurologic been involved based on underlying confusion. Note that she doesn't have any focal neurological deficits. On 01/15/2023, she is being seen in follow-up. The patient was hospitalized for altered mentation. Her mentation gradually improving. Carotids on the case. The patient had an MRI of the brain that showed no acute abnormalities. There was some nonspecific white matter changes related to small vessel ischemic disease. EEG was abnormal with background slowing suggestive of mild encephalopathy. As mentioned, there was a concern of an underlying pneumonia. There was is also a left-sided pleural effusion. A CAT scan of chest was done yesterday showed a small loculated left-sided pleural effusion without any mediastinal lymphadenopathy. No other acute pulmonary abnormalities were noted. The patient remains on room air oxygen. Breath sounds are improved on today's evaluation of the left. The white cell count 11 hemoglobin is at 7.8 and there is a 2 g up in hemoglobin since yesterday without evidence of any GI bleed. D- dimer was at 1.9 and the Doppler of the rectum is were negative. BUN is at 12 a creatinine 1.2 and sodium levels of 139. Calcium is at 8.6. LFTs are normal. Pro-calcitonin level is at 0.7. On today's evaluation of 01/16/2023, seeing the patient for a follow-up. Overnight, the patient became slightly more short of breath. She was unable to breathe. There was a drop in her oxygenation also. She was placed on 6 L of O2 nasal cannula and subsequently she was brought back down to 2 L. Noted the repeat chest x-ray was done and the patient showed a left-sided pleural effusion which is slightly larger. Ultrasound marking of the left-sided pleural effusion was also done. Neurologically, the patient underwent a lumbar puncture and the findings are negative and the neurologist is still on the case pH was having some movement abnormalities and she responded to treatment. CAT scan of the brain shows some atrophy. MRI can be performed as clinically indicated. EEG showed some mild encephalopathy. The hemoglobin is at 7 and the rest of the electrolytes are all within normal limits. Pro-calcitonin level was at 1.1 and 1.08 respectively. The WBC count of 8.8 with a hemoglobin of 7.1. On today's evaluation of 06/19/2023 the patient remains on 2 L of oxygen by nasal cannula and she is also on IV Rocephin. I performed a thoracentesis on her and removed approximately 900 mL of pleural fluid from her left lung. No complications. The fluid is transudate. The white cell count is quite elevated and symptoms is elevated LDH and protein and a glucose slightly lower. Awaiting the pleural fluid cultures and cytology. Meanwhile, the chest x-ray that showed no pneumothorax, and showed some infiltration and consolidation involving the left lung base. No altered mentation. Mentation is improved considerably for now. WBC count at 6.9, hemoglobin was at 7.7, pro-calcitonin level is at 0.9. Noted the pleural fluid cell count was 257 and the red count was 45,000. LDH was 6:15 with a protein count of 3830. On 01/18/2023, the patient is on 2 L of Oxymizer nasal cannula. Up with her on room air oxygen and the patient was able to maintain a saturation above 90%. She is afebrile. Mental status is adequate. Still on IV Rocephin. Awaiting pleural fluid cytology. Noted the pleural fluid was essentially an exudate. A repeat chest x-ray to be done tomorrow. The white cell count of 6.9, hemoglobin is at 7.7, pro-calcitonin level is 0.97. The patient is seen today 01/19/2023 in follow-up on the regular medical floor. She is currently sitting up in bed. Awake and alert in no acute distress. Oriented 3. No worsening shortness of breath, cough or congestion. Maintaining O2 saturations in the 90s on room air. She's been afebrile. Hemodynamically stable. Sensory reveals a left lower lobe infiltrate with small effusion. Blood cultures revealed no growth. Pleural fluid cultures reveal no growth. Fluid analysis was exudate with a protein of 3.8 and the LDH is 615. Sputum cultures revealed no growth. White count 7.8. Hemoglobin 7.4. Sodium 137. Potassium 3.2. Bicarb 26. BUN 9. Creatinine 0.77. Glucose 103. She remains on ceftriaxone. Lovenox for DVT prophylaxis. The patient is seen today 01/20/2023 in follow-up on the regular medical floor. She is awake and alert in no acute distress. Oriented 3. Denies any worsening shortness of breath, cough or congestion. She is maintaining good O2 saturations in the 90s on room air. Afebrile. Hemodynamically stable. Surgical spinal fluid cytology revealed no evidence of malignancy. Cultures revealed no growth. Pleural fluid revealed no growth. Sputum culture revealed no growth. Throat culture revealed no growth. White count 8.2. Hemoglobin 7.6. Platelets 395. Sodium 139. Potassium 3.8. Bicarb 30. BUN 8. Creatinine 0.88. Most recent pro-calcitonin was 0.97. She remains on ceftriaxone. Lovenox for DVT prophylaxis. Objective - Vital Signs Vital signs: Vital Signs Temp 98.3 F 01/20/23 07:36 Pulse 99 01/20/23 07:36 Resp 17 01/20/23 07:36 BP 148/64 01/20/23 07:36 Pulse Ox 92 L 01/20/23 07:36 FiO2 Intake & Output 01/19/23 01/20/23 01/20/23 18:59 06:59 18:59 Other: Voiding Method Toilet Toilet Bedside Commode Bedside Commode # Voids 1 3 # Bowel Movements 1 - Exam GENERAL EXAM: Alert, oriented 3, 67-year-old female, on room air, comfortable in no apparent distress. HEAD: Normocephalic. EYES: Normal reaction of pupils, equal size. NOSE: Clear with pink turbinates. THROAT: No erythema or exudates. NECK: No masses, no JVD. CHEST: No chest wall deformity. LUNGS: Equal air entry with crackles in the left lung base. CVS: S1 and S2 normal with no audible murmur, regular rhythm. ABDOMEN: No hepatosplenomegaly, normal bowel sounds, no guarding or rigidity. SPINE: No scoliosis or deformity SKIN: No rashes CENTRAL NERVOUS SYSTEM: No focal deficits, tone is normal in all 4 extremities. EXTREMITIES: There is no peripheral edema. No clubbing, no cyanosis. Peripheral pulses are intact. - Labs CBC & Chem 7: 01/20/23 05:51 01/20/23 05:51 Labs: Abnormal Lab Results - Last 24 Hours (Table) 01/16/23 01/20/23 01/20/23 Range/Units 06:01 05:51 05:51 RBC 2.49 L (3.80-5.40) m/uL Hgb 7.6 L (11.4-16.0) gm/dL Hct 24.5 L (34.0-46.0) % RDW 18.7 H (11.5-15.5) % Lymphocytes # (Manual) 0.90 L (1.0-4.8) k/uL Monocytes # (Manual) 1.56 H (0-1.0) k/uL Metamyelocytes # (Man) 0.08 H (0) k/uL Myelocytes # (Manual) 0.16 H (0) k/uL Glucose 101 H (74-99) mg/dL Zinc <25 L (60-130) ug/dL Microbiology - Last 24 Hours (Table) 01/17/23 20:50 Gram Stain - Final Sputum Sputum Culture - Final Tierra albicans 01/17/23 19:05 Group A Strep Throat Culture - Final Throat 01/15/23 12:11 CSF Gram Stain - Final Cerebral Spinal Fluid CSF Culture - Final 01/16/23 11:40 Gram Stain - Preliminary Pleural Fluid Body Fluid Culture - Preliminary 01/13/23 18:50 Blood Culture - Final Blood 01/13/23 19:05 Blood Culture - Final Blood Assessment and Plan Assessment: Altered mentation currently under investigation. Rule out underlying metabolic encephalopathy. Patient has possibly an underlying pneumonia and this could've contributed to the altered mentation. CAT scan of the brain is negative. Neurology is on the case, MRI of the brain is negative, EEG showing mild encephalopathy. Neurologically recovered. Cerebrospinal fluid cultures revealed no growth. Cytology negative for malignancy. Acute febrile illness, currently afebrile Acute hypoxic respiratory failure, recovered and currently on room air with a pulse ox above 90% Left-sided pleural effusion, with small loculation, consider parapneumonic effusion or pleural fluid was exudative with a protein of 3.8 and LDH of 615. Pro-calcitonin was 0.97. Remains on ceftriaxone. Chronic immunosuppression with intake of methotrexate Limited arthritis Fibromyalgia Plan: The patient was seen and evaluated Labs and medications reviewed Alert and oriented 3 Stable and on room air Cleared for discharge from the pulmonary standpoint Follow-up in the office in 1 week I have personally seen and examined the patient, performed the documentation and the assessment and plan as written. Number of minutes spent on the visit: 10.
[2023-01-20 12:57] VITALS: BMI 26.5
--- NOTE | 2023-01-20 16:59 | CDI ---
Documentation Clarification Form Date: 01/20/2023 4:11:46 PM From: Marielle Snyder RN, CCDS Admit Date: 01/13/2023 8:30:00 PM Patient Name: Debora Rivera Visit Number: [id number] Discharge Date: 01/20/2023 1:00:00 PM ATTENTION: The Clinical Documentation Specialists (CDI) and [facility] Coding Staff appreciate your assistance in clarifying documentation. Please respond to the clarification below the line at the bottom and electronically sign. The CDI & [facility] Coding staff will review the response and follow-up if needed. Please note: Queries are made part of the Legal Health Record. If you have any questions, please contact the author of this message via ITS. Dr. Al Box Sepsis is documented in the ID consult and subsequent progress notes starting on 01/14 and in the H/P and subsequent progress notes as acute metabolic encephalopathy, possible secondary to sepsis, but is not noted in subsequent documentation starting on 01/16/23. Clarification is requested. 01/14 ID Consult: Patient was in the hospital with sepsis in this patient who did have a fever tachycardia did have some respiratory symptoms with evidence of left-sided effusion possible pneumonia and parapneumonic effusion likely community -acquired pathogen complicated infection such as lobulated effusion not entirely excluded. History/Risk Factors: Rheumatoid arthritis, Fibromyalgia, chronic immunosuppressed with intake of Methotrexate Clinical Indicators: 67-year-old female present to ER with mental status changes fever symptoms has been going on for a day or 2 before presentation to the hospital. 01/13 VS: 141/65 114 102.7 18 95% RA 01/14 VS (07:06) 132/74 120 16 100.1 95 % RA 01/13 Labs WBC 8.0 HGB 10.2 HCT 31.9 01/14 Procalcitonin 0.76 Treatment: Rocephin 2 GM IVPB Once then Q Day 01/13-01/20 Zithromax 500 MG IVPB Once 01/13 then 500 MG PO, HS 01/14-01/15 .9NS 500 VA IV X2 bags 01/13 Please clarify if Sepsis is: [+ ] Sepsis, confirmed, POA, resolved [ ] Sepsis, ruled out [ ] Other condition, please specify [ ] Unable to determine (Template Last Revised: November 2020) MTDD
--- NOTE | 2023-01-20 17:51 | P.DS ---
Providers Date of admission: 01/13/23 20:30 Expected date of discharge: 01/20/23 Attending physician: Al Box Consults: 01/14/23 09:40 Consult Physician Routine Consulting Provider: Presley Chatman Consult Reason/Comments: ams, confusion, pneumonia Do you want consulting provider notified?: Yes Consult Physician Urgent Consulting Provider: Won Lowery Consult Reason/Comments: pleural effusion, pna Do you want consulting provider notified?: Yes 01/14/23 09:57 Consult Physician Urgent Consulting Provider: Adrienne Allen Consult Reason/Comments: PNA Do you want consulting provider notified?: Yes 01/14/23 10:40 Consult Physician Urgent Consulting Provider: Francisco Vargas Consult Reason/Comments: ams, increased confusion Do you want consulting provider notified?: Yes Primary care physician: Lucas Julio [place] Hospital Course: Hospital course: This is a 67-year-old female patient, presented to the hospital because of an altered mental status. The daughter has noted that the patient has been having some increased cough and symptoms of respiratory tract infection. The patient's granddaughters has been having also URIs and subsequently the patient started hernandez ving increased cough. She denies having any pleurisy or hemoptysis. The patient's family noted that she has been become progressively more confused. She did have chills and currently in the hospital she is running a fever. She came into the emergency and the patient underwent further investigation. Temperature max was 102.7. White cell count was 8. Covid 19 testing, influenza testing, and RSV testing were all negative. UA was negative. Chest x-ray showed a left lower lobe consolidation and pleural effusion. Computed tomography scan of the chest showed cerebral atrophy and chronic perivascular white matter disease changes. She has remote history of smoking and currently nonsmoker. No agitation. No seizure activity. Neurologic been involved based on underlying confusion. Note that she doesn't have any focal neurological deficits Patient being followed by neurology and pulmonary. January 16: I assumed care of the patient from [facility] hospitalist today. Patient daughter the bedside. She states patient is about 60% better. More oriented. Did eat a bit. This afternoon 9 50 mL of turbid colored fluid was removed without difficulty by Dr. Lowery. Acyclovir was discontinued by neurology. Risperdal is being cut back by neurology. CSF fluid otherwise appears to be unremarkable. - 0 nucleated cells. Oral intake about 50% IV ceftriaxone January 17: Patient sitting up in a recliner. For more cheerful awake. Oral intake much improved. Daughter present. Much happy about improvement. Breathing better. IV ceftriaxone. Cultures from pleural fluid pending. January 18: Patient daughter and the son at the bedside. A bit tired today. Decreased appetite. Patient looking forward to eat lunch. Breathing stable. Cultures pending. IV ceftriaxone. January 19: Oral intake fair. Did walk a bit in the hallway. Cultures pending this morning. IV ceftriaxone. Chest x-ray a shows left pleural effusion/infiltrate. January 20: Patient doing well. Breathing well. Slight cough. Did ambulate in the hallway. Discussed with the patient and daughter the bedside. Culture still pending. We'll follow up with Dr. Lowery outpatient. Questions answered. 7 more days of Ceftin. Discussion and discharge planning more than 35 minutes On examination: VITAL SIGNS: 98.3, 99, 17, 140/64, 92% room air GENERAL APPEARANCE: Up in a recliner, comfortable HEENT: Normal external appearance of nose and ear. Oral cavity normal EYES: Pupils equal. Conjunctiva normal. NECK: JVD not raised. Mass not palpable. RESPIRATORY: Respiratory effort normal. Lungs coarse crackles-on the left base CARDIOVASCULAR: First and second sounds normal. No edema. ABDOMEN: Soft. Liver and spleen not palpable. No tenderness. No mass palpable. PSYCHIATRY: AO 3, mood affect normal INVESTIGATIONS, reviewed in the clinical context: January 20: White count 8.2 hemoglobin 7.6 potassium 3.8 creatinine 0.8 date procalcitonin 0.42 January 17: White count 6.9 hemoglobin 7.7 platelets 282. Procalcitonin 0.97 January 16: White count 8.8 hemoglobin 7.1 platelets 251 potassium 3.4 creatinine 1.0 Previous labs: Procalcitonin 0.76 CSF: Protruding. 70 glucose 64 total protein 38 Influenza type A/B/RSV/COVID-19: Not detected Venous Doppler: Negative for DVT, bilateral Brain MRI: Nonspecific white matter changes. EEG: No epileptiform activity. Some suggestion of encephalopathy. Assessment and plan: -Altered mental status likely metabolic encephalopathy/delirium from pneumonia and parapneumonic effusion. Other neurological workup has been negative.: Corrected -Left-sided pneumonia with a parapneumonic effusion: Improving IV ceftriaxone. Discharged with Ceftin 500 mg twice a day-7 days. Follow up with Dr. Lowery -Left parapneumonic effusion, 9 50 mL turbid fluid removed on January [address] Lowery: Transudate Await cultures and cytology. Follow up with Dr. Lowery -GERD PPI -Depression and anxiety Trazodone, Effexor X are -Hyperlipidemia Zetia -Rheumatoid arthritis Methotrexate,xeljanz- continue to hold the both until cleared by pulmonary to resume. Discussed with daughter Disposition: Home Plan - Discharge Summary New Discharge Prescriptions: New cefUROXime axetiL [Ceftin] 500 mg PO BID #14 tab Continue Folic Acid 1 mg PO DAILY Aspirin EC [Ecotrin Low Dose] 81 mg PO DAILY metHOTREXate sodium [Methotrexate] 15 mg PO TU Omeprazole [PriLOSEC] 40 mg PO HS Venlafaxine HCl [Effexor XR] 75 mg PO DAILY Ezetimibe [Zetia] 10 mg PO DAILY Docusate [Colace] 100 mg PO MOWEFR Tofacitinib Citrate [Xeljanz Xr] 11 mg PO DAILY traZODone HCL [Desyrel] 100 mg PO HS Cholecalciferol [Vitamin D3 (25 Mcg = 1000 Iu)] 25 mcg PO DAILY Ascorbic Acid [Vitamin C] 500 mg PO MOWEFR Ferrous Sulfate [Iron (65 MG Elemental)] 325 mg PO MOWEFR Discontinued Loratadine [Claritin] 10 mg PO DAILY Discharge Medication List Aspirin EC [Ecotrin Low Dose] 81 mg PO DAILY 03/12/18 [History] Folic Acid 1 mg PO DAILY 03/12/18 [History] metHOTREXate sodium [Methotrexate] 15 mg PO TU 03/12/18 [History] Ascorbic Acid [Vitamin C] 500 mg PO MOWEFR 01/13/23 [History] Cholecalciferol [Vitamin D3 (25 Mcg = 1000 Iu)] 25 mcg PO DAILY 01/13/23 [History] Docusate [Colace] 100 mg PO MOWEFR 01/13/23 [History] Ezetimibe [Zetia] 10 mg PO DAILY 01/13/23 [History] Ferrous Sulfate [Iron (65 MG Elemental)] 325 mg PO MOWEFR 01/13/23 [History] Omeprazole [PriLOSEC] 40 mg PO HS 01/13/23 [History] Tofacitinib Citrate [Xeljanz Xr] 11 mg PO DAILY 01/13/23 [History] Venlafaxine HCl [Effexor XR] 75 mg PO DAILY 01/13/23 [History] traZODone HCL [Desyrel] 100 mg PO HS 01/13/23 [History] cefUROXime axetiL [Ceftin] 500 mg PO BID #14 tab 01/20/23 [Rx] Follow up Appointment(s)/Referral(s): Lucas Julio MD [Primary Care Provider] - 1-2 days (Please call to make follow up.) [facility] [NON-STAFF] - 1 Week Won Lowery MD [STAFF PHYSICIAN] - 1 Week Activity/Diet/Wound Care/Special Instructions: dc if ok with pulmonary Discharge/Stand Alone Forms: Anes Pain/[place] Instructions Discharge Disposition: HOME SELF-CARE
== END 2023-01-20 13:00 | disposition home or self-care (01) | DRG 871 ==
LOC: EC 18:08 → 5NMEDONC 20:30
PROVIDERS: ADMIT Hospitalist; ATTEND Hospitalist
PROC: 009U3ZX Drainage of Spinal Canal, Percutaneous Approach, Diagnostic (ICD-10-PCS; principal; 2023-01-15 11:30)
PROC: 0W9B3ZX Drainage of Left Pleural Cavity, Percutaneous Approach, Diagnostic (ICD-10-PCS; 2023-01-16)
DX: A41.9 Sepsis, unspecified organism (principal); G93.41 Metabolic encephalopathy; J18.9 Pneumonia, unspecified organism; J96.01 Acute respiratory failure with hypoxia; D84.821 Immunodeficiency due to drugs; J91.8 Pleural effusion in other conditions classified elsewhere; G24.9 Dystonia, unspecified; M79.7 Fibromyalgia; M19.90 Unspecified osteoarthritis, unspecified site; K21.9 Gastro-esophageal reflux disease without esophagitis; M06.9 Rheumatoid arthritis, unspecified; G25.5 Other chorea; F41.9 Anxiety disorder, unspecified; F32.A Depression, unspecified; D50.9 Iron deficiency anemia, unspecified; E78.5 Hyperlipidemia, unspecified; E60 Dietary zinc deficiency; Z20.822 Contact with and (suspected) exposure to COVID-19; Z87.891 Personal history of nicotine dependence; Z79.899 Other long term (current) drug therapy; Z79.82 Long term (current) use of aspirin; Z79.631 Long term (current) use of antimetabolite agent; Z88.1 Allergy status to other antibiotic agents; Z88.2 Allergy status to sulfonamides; Z88.8 Allergy status to other drugs, medicaments and biological substances
CPT/HCPCS: 36415; 62270; 70450; 70553; 71045; 71046; 71260; 76604; 80048; 80053; 81001; 82140; 82465; 82525; 82607; 82746; 82945; 83036; 83605; 83615; 83873; 84145; 84157; 84443; 84478; 84630; 85025; 85379; 85610; 85730; 86060; 86592; 86738; 87070; 87075; 87081; 87205; 87252; 87496; 87498; 87529; 87636; 87798; 88108; 88305; 89050; 93005; 93970; 94760; 95816; 96361; 96365; 96367; 99285

== ENCOUNTER 2024-08-01 09:05 | Emergency (ER) | payer MEDICARE, OTHER ==
[2024-08-01 09:09] VITALS: TEMP 99.4
--- NOTE | 2024-08-01 09:29 | ED ---
General Adult HPI - General Chief complaint: Weakness Stated complaint: Vomiting, headache Time Seen by Provider: 08/01/24 09:18 Source: patient, RN notes reviewed, old records reviewed Mode of arrival: ambulatory Limitations: no limitations - History of Present Illness Initial comments: Patient is a 69-year-old female presents emergency department complaining of weakness in the setting of cough, congestion for 1 week. No obvious fevers. S he experiences posttussive emesis. Has a history of rheumatoid arthritis, pleural effusion, hyperlipidemia, fibromyalgia. She denies any chest pain or abdominal pain. States she is coughing up colored mucus. Denies any blood in her mucus. Denies any blood in her vomit. Denies any constipation. Had 1 episode of looser stool this morning. Denies abdominal pain. No known sick contacts. Was seen at urgent care and diagnosed with possible pneumonia and placed on a Z-Juvenal and Rocephin however patient has had less of an appetite and wanted to be reevaluated here at the ER. Lives with her daughter. No other acute complaints at this time. - Related Data Home Medications Medication Instructions Recorded Confirmed Aspirin EC [Ecotrin Low Dose] 81 mg PO DAILY 03/12/18 01/13/23 Folic Acid 1 mg PO DAILY 03/12/18 01/13/23 metHOTREXate sodium [Methotrexate] 15 mg PO TU 03/12/18 01/13/23 Ascorbic Acid [Vitamin C] 500 mg PO MOWEFR 01/13/23 01/13/23 Cholecalciferol [Vitamin D3 (25 25 mcg PO DAILY 01/13/23 01/13/23 Mcg = 1000 Iu)] Docusate [Colace] 100 mg PO MOWEFR 01/13/23 01/13/23 Ezetimibe [Zetia] 10 mg PO DAILY 01/13/23 01/13/23 Ferrous Sulfate [Iron (65 MG 325 mg PO MOWEFR 01/13/23 01/13/23 Elemental)] Omeprazole [PriLOSEC] 40 mg PO HS 01/13/23 01/13/23 Tofacitinib Citrate [Xeljanz Xr] 11 mg PO DAILY 01/13/23 01/13/23 Venlafaxine HCl [Effexor XR] 75 mg PO DAILY 01/13/23 01/13/23 traZODone HCL [Desyrel] 100 mg PO 01/13/23 01/13/23 Previous Rx's Medication Instructions Recorded cefuroxime axetiL [Ceftin] 500 mg PO BID #14 tab 01/20/23 Levofloxacin [Levaquin] 750 mg PO DAILY 7 Days #7 tab 08/01/24 Allergies Allergy/AdvReac Type Severity Reaction Status Date / Time Tetracyclines Allergy Unknown Verified 08/01/24 09:09 hydrochlorothiazide AdvReac Vomiting Verified 08/01/24 09:09 [From Zestoretic] lisinopril [From Zestoretic] AdvReac Vomiting Verified 08/01/24 09:09 Review of Systems ROS Statement: Those systems with pertinent positive or pertinent negative responses have been documented in the HPI. Review of Systems: CONST: Denies fever EYES: Denies blurry vision ENT: Endorses nasal congestion, cough C/V: Denies Chest pain RESP: Denies shortness of breath GI: Denies abdominal pain : Denies dysuria SKIN: Denies rash. MSK: Denies joint pain. NEURO: Denies headache ROS Other: All systems not noted in ROS Statement are negative. Past Medical History Past Medical History: Fibromyalgia, GERD/Reflux, Rheumatoid Arthritis (RA) History of Any Multi-Drug Resistant Organisms: None Reported Past Surgical History: Breast Surgery, Cholecystectomy Additional Past Surgical History / Comment(s): Cervical surgery Past Psychological History: No Psychological Hx Reported Smoking Status: Former smoker Past Alcohol Use History: Rare Past Drug Use History: Marijuana General Exam - General Exam Comments Initial Comments: General: Appears in no acute distress. HEAD: Normal with no signs of head trauma. EYES: EOMI ENT: Hearing grossly intact, normal oropharynx. RESPIRATORY: Clear breath sounds bilaterally. No wheezes, rales, or rhonchi. Relatively clear breath sounds bilaterally with mild decreased breath sounds at the left lung base site of a known pleural effusion. No hypoxia. C/V: Regular rate and rhythm. S1 and S2 auscultated, no edema, peripheral pulses 2+ and intact throughout ABD: Abd is soft, nontender, nondistended EXT: Normal range of motion, no obvious deformity SKIN: No rashes or lesions observed on exposed skin. NEURO: Alert and oriented x 4. Limitations: no limitations Course Vital Signs 08/01/24 08/01/24 08/01/24 09:06 09:25 12:20 Temperature 99.4 F Pulse Rate 97 77 Respiratory 18 20 18 Rate Blood Pressure 172/75 124/86 O2 Sat by Pulse 97 98 Oximetry Medical Decision Making - Medical Decision Making Was pt. sent in by a medical professional or institution ([facility] LU[facility] Valdes, VIDEO GAME ENGINEER, urgent care, hospital, or custodial...) When possible be specific @ -No Did you speak to anyone other than the patient for history (EMS, parent, family, police, friend...)? What history was obtained from this source @ -Patient's daughter who is at bedside assist with patient's past medical history. Did you review nursing and triage notes (agree or disagree)? Why? @ -I reviewed and agree with nursing and triage notes Were old charts reviewed (outside hosp., previous admission, EMS record, old EKG, old radiological studies, urgent care reports/EKG's, custodial records)? Report findings @ -Reviewed x-ray from urgent care from yesterday which does show a left-sided pleural effusion. This is not available in our system. Pleural effusion seen on chest x-ray from November 20, 2023. Differential Diagnosis (chest pain, altered mental status, abdominal pain women, abdominal pain men, vaginal bleeding, weakness, fever, dyspnea, syncope, headache, dizziness, GI bleed, back pain, seizure, CVA, palpatations, mental health, musculoskeletal)? @ -COVID, flu, RSV, pneumonia, pleural effusion. This list is not all inclusive. EKG interpreted by me (3pts min.). @ -As above X-rays interpreted by me (1pt min.). @ -Chest x-ray reveals left pleural effusion as well as suspected pneumonia in the left lower lung. CT interpreted by me (1pt min.). @ -None done U/S interpreted by me (1pt. min.). @ -None done What testing was considered but not performed or refused? (CT, X-rays, U/S, labs)? Why? @ -None What meds were considered but not given or refused? Why? @ -None Did you discuss the management of the patient with other professionals (professionals i.e. MARIA LUISA Valdes, VIDEO GAME ENGINEER, lab, RT, psych nurse, social services specialist, technical training coordinator, teacher, protocol officer, case investigator)? Give summary @ -No Was smoking cessation discussed for >3mins.? @ -No Was critical care preformed (if so, how long)? @ -No Were there social determinants of health that impacted care today? How? (Homelessness, low income, unemployed, alcoholism, drug addiction, transpor tation, low edu. Level, literacy, decrease access to med. care, [place] [facility], rehab)? @ -No Was there de-escalation of care discussed even if they declined (Discuss DNR or withdrawal of care, Hospice)? DNR status @ -No What co-morbidities impacted this encounter? (DM, HTN, Smoking, COPD, CAD, Cancer, CVA, ARF, Chemo, Hep., AIDS, mental health diagnosis, sleep apnea, morbid obesity)? @ -Chronic left pleural effusion Was patient admitted / discharged? Hospital course, mention meds given and route, prescriptions, significant lab abnormalities, going to OR and other pertinent info. @ -Patient presents emergency department complaining of upper respiratory symptoms consistent with viral illness or possible pneumonia. Patient also complaining of posttussive emesis. We will obtain laboratory studies, viral swabs, chest x-ray, and symptomatically treat the patient with IV Toradol, Zofran, Protonix, fluids. Patient and patient's daughter are in agreement this plan. Vital signs currently within acceptable limits. No obvious respiratory distress. Chest x-ray reveals left pleural effusion as well as concerning findings. Left- sided pneumonia. Remainder the laboratory studies are unremarkable. Viral swabs negative. On reevaluation, patient is resting comfortably. Discussed her workup. She will be started on a stronger antibiotic. She was in agreement this plan. Strict return precautions discussed. Recommended follow-up with her PCP. I will provide the patient with a prescription for Levaquin. I instructed the patient to follow up with their PCP in the next 1-3 days.. I explained that the patient should return to the emergency department if they experience any worsening symptoms. Strict return precautions were discussed with the patient. The patient expressed understanding of these instructions. I answered all questions that the patient had. The patient was discharged home in good condition with their prescriptions and follow up information. Undiagnosed new problem with uncertain prognosis? @ -No Drug Therapy requiring intensive monitoring for toxicity (Heparin, Nitro, Insulin, Cardizem)? @ -No Were any procedures done? @ -No Diagnosis/symptom? @ -Pneumonia Acute, or Chronic, or Acute on Chronic? @ -Acute Uncomplicated (without systemic symptoms) or Complicated (systemic symptoms)? @ -Complicated Side effects of treatment? @ -None Exacerbation, Progression, or Severe Exacerbation] @ -No Poses a threat to life or bodily function? @ -Unlikely at this time - Lab Data Result diagrams: 08/01/24 09:48 08/01/24 09:48 Lab Results 08/01/24 08/01/24 08/01/24 Range/Units 09:48 09:48 09:48 WBC 9.1 (3.8-10.6) k/uL RBC 3.65 L (3.80-5.40) m/uL Hgb 12.2 (11.4-16.0) gm/dL Hct 37.9 (34.0-46.0) % MCV 103.8 H (80.0-100.0) fL MCH 33.4 (25.0-35.0) pg MCHC 32.2 (31.0-37.0) g/dL RDW 15.2 (11.5-15.5) % Plt Count 287 (150-450) k/uL MPV 7.5 Neutrophils % 87 % Lymphocytes % 3 % Monocytes % 8 % Eosinophils % 1 % Basophils % 0 % Neutrophils # 7.9 H (1.3-7.7) k/uL Lymphocytes # 0.3 L (1.0-4.8) k/uL Monocytes # 0.8 (0-1.0) k/uL Eosinophils # 0.1 (0-0.7) k/uL Basophils # 0.0 (0-0.2) k/uL Macrocytosis Moderate Sodium 137 (137-145) mmol/L Potassium 4.5 (3.5-5.1) mmol/L Chloride 104 (98-107) mmol/L Carbon Dioxide 24 (22-30) mmol/L Anion Gap 9 mmol/L BUN 13 (7-17) mg/dL Creatinine 0.99 (0.52-1.04) mg/dL Est GFR (CKD-EPI)AfAm 67 (>60 ml/min/1.73 sqM) Est GFR (CKD-EPI)NonAf 58 (>60 ml/min/1.73 sqM) Glucose 111 H (74-99) mg/dL Calcium 9.2 (8.4-10.2) mg/dL Magnesium 1.8 (1.6-2.3) mg/dL Total Bilirubin 0.6 (0.2-1.3) mg/dL AST 47 H (14-36) U/L ALT 23 (4-34) U/L Alkaline Phosphatase 66 (38-126) U/L Total Protein 7.8 (6.3-8.2) g/dL Albumin 4.4 (3.5-5.0) g/dL Influenza Type A (PCR) Not Detected (Not Detectd) Influenza Type B (PCR) Not Detected (Not Detectd) RSV (PCR) Not Detected (Not Detectd) SARS-CoV-2 (PCR) Not Detected (Not Detectd) - EKG Data -: EKG Interpreted by Me EKG Comments: 12-lead Electrocardiogram Interpretation Note EKG was reviewed and interpreted by myself. 12-lead ECG performed at 0931 is interpreted by me as revealing normal sinus rhythm at a rate of 91 beats per minute. [place] is normal. [place] interval is 136 ms, QRS duration is 85 ms, QTc is 390 ms.. There were no ST or T wave abnormalities to suggest myocardial ischemia or injury. R wave progression across the precordium was satisfactory. By my interpretation this EKG is non-diagnostic for acute ischemia. Disposition Clinical Impression: Pneumonia Disposition: HOME SELF-CARE Condition: Good Instructions (If sedation given, give patient instructions): Community Acquired Pneumonia (ED) Additional Instructions: Complete course of antibiotics. Return the emergency department if worsening symptoms. Follow-up with your PCP. Prescriptions: Levofloxacin [Levaquin] 750 mg PO DAILY 7 Days #7 tab Is patient prescribed a controlled substance at d/c from ED?: No Referrals: Katie Ritter MD [Primary Care Provider] - 1-2 days Time of Disposition: 12:00
[2024-08-01] MEDS: KETOROLAC 15 MG/ML 1 ML VIAL IVP STA (09:41)
[2024-08-01] MEDS: SODIUM CHLORIDE 0.9% 1,000 ML IV STA (09:43)
[2024-08-01] MEDS: ONDANSETRON 4 MG/2 ML VIAL IVP STA (09:44)
[2024-08-01] MEDS: PANTOPRAZOLE 40 MG/10 ML VIAL IVP STA (09:45)
--- NOTE | 2024-08-01 10:12 | XR ---
EXAMINATION TYPE: XR chest 2V DATE OF EXAM: 08/01/2024 10:01 AM COMPARISON: Chest radiographs from 11/23/2023 TECHNIQUE: XR chest 2V Frontal and lateral views of the chest. CLINICAL INDICATION:Female, 69 years old with history of Weakness; FINDINGS: Lungs/Pleura: No pneumothorax. Right lung is clear. Moderate left pleural effusion which is increased from prior exam. Left basilar patchy consolidation/atelectasis. Pulmonary vascularity: Unremarkable. Heart/mediastinum: Cardiomediastinal silhouette is stable. Atherosclerotic calcifications are seen i n the aorta. Musculoskeletal: No acute osseous pathology. Multilevel degenerative disc disease. IMPRESSION: Slightly increased moderate left pleural effusion with associated consolidation and/or atelectasis. [facility], , 08/01/2024 10:10 AM
[2024-08-01 10:19] LABS: Basophils % (A) 0 %; Eosinophils # (A) 0.1 k/uL (0-0.7); Eosinophils % (A) 1 %; HCT 37.9 % (34.0-46.0); HGB 12.2 gm/dL (11.4-16.0); Lymphocytes # (A) 0.3 k/uL (1.0-4.8); Lymphocytes % (A) 3 %; MCH 33.4 pg (25.0-35.0); MCHC 32.2 g/dL (31.0-37.0); MCV 103.8 fL (80.0-100.0); Macrocytosis Moderate; Mean Platelet Volume 7.5; Monocytes # (A) 0.8 k/uL (0-1.0); Monocytes % (A) 8 %; Neutrophils # (A) 7.9 k/uL (1.3-7.7); Neutrophils % (A) 87 %; Platelet Count 287 k/uL (150-450); RBC 3.65 m/uL (3.80-5.40); RDW 15.2 % (11.5-15.5); WBC 9.1 k/uL (3.8-10.6)
[2024-08-01 10:31] LABS: ALT 23 U/L (4-34); African American GFR (CKD) 67 (>60 ml/min/1.73 sqM); Albumin 4.4 g/dL (3.5-5.0); Anion Gap 9 mmol/L; Blood Urea Nitrogen 13 mg/dL (7-17); Calcium 9.2 mg/dL (8.4-10.2); Carbon Dioxide 24 mmol/L (22-30); Chloride 104 mmol/L (98-107); Glucose 111 mg/dL (74-99); Non-African American GFR(CKD) 58 (>60 ml/min/1.73 sqM); Sodium 137 mmol/L (137-145); Total Bilirubin 0.6 mg/dL (0.2-1.3); Total Protein 7.8 g/dL (6.3-8.2)
[2024-08-01 10:45] LABS: AST 47 U/L (14-36); Alkaline Phosphatase 66 U/L (38-126); Magnesium 1.8 mg/dL (1.6-2.3); Potassium 4.5 mmol/L (3.5-5.1)
[2024-08-01] MEDS: LEVOFLOXACIN 750 MG TAB PO STA (12:09)
[2024-08-01 12:21] VITALS: BP 124/86; PULSE 77; RESP 18
== END 2024-08-01 12:22 | disposition home or self-care (01) ==
LOC: EC 09:05
DX: J18.9 Pneumonia, unspecified organism (principal); J90 Pleural effusion, not elsewhere classified; Z87.891 Personal history of nicotine dependence; Z88.8 Allergy status to other drugs, medicaments and biological substances
CPT/HCPCS: 36415; 93005; 80053; 83735; 85025; 87636; 71046; 99285; 96374; 96375 ×2; 96361; J2405; J1885; J2470

== ENCOUNTER → 2024-09-09 | Outpatient (CLI) | payer MEDICARE, OTHER ==
[2024-09-09 11:51] LABS: African American GFR (CKD) 65 (>60 ml/min/1.73 sqM); Blood Urea Nitrogen 21 mg/dL (7-17); Non-African American GFR(CKD) 57 (>60 ml/min/1.73 sqM)
--- NOTE | 2024-09-09 13:07 | CT ---
EXAMINATION TYPE: CT chest w con CT DLP: 604 mGycm, Automated exposure control for dose reduction was used. DATE OF EXAM: 09/09/2024 12:57 PM COMPARISON: Chest radiograph 08/01/2024, CT chest 01/14/2023 CLINICAL INDICATION:Female, 69 years old with history of J90 PLEURAL EFFUSION; PHH, pleural effusion TECHNIQUE: Multiple axial images were obtained through the chest following the administration of 100 cc of Isovue 300. . Coronal and sagittal reformats reviewed. FINDINGS: LUNGS/ PLEURA: No pneumothorax. Mild centrilobular emphysematous changes. Right middle lobe 2 mm pul monary micronodule (series 4, image 32). No right pleural effusion. Redemonstration of loculated mode rate size left pleural effusion with associated atelectasis. No thick walled enhancement identified. This is along the anterior lateral aspect of the pleura and extends into the pleural base. AIRWAY: Patent and unremarkable.. HEART: Size within normal limits.Trace anterior pericardial effusion. Small coronary calcifications. MEDIASTINUM: No gross evidence of adenopathy. VASCULATURE: No aortic aneurysm. Mild atherosclerotic calcification of the aorta and its branches. MUSCULOSKELETAL: No acute osseous abnormalities. Mild multilevel degenerative disc disease. Increased thoracic kyphosis. SOFT TISSUES/LYMPH NODES: Unremarkable. LOWER NECK: No significant findings. UPPER ABDOMEN: Gallbladder is surgically absent. Proximal duodenal diverticulum. IMPRESSION: Moderate-sized loculated left pleural effusion with associated atelectasis. [facility], , 09/09/2024 1:05 PM
== END | disposition home or self-care (01) ==
LOC: RADCTMAIN 11:10
PROVIDERS: ATTEND Internal Medicine Critical Care Medicine
DX: J90 Pleural effusion, not elsewhere classified (principal); J98.11 Atelectasis; K57.10 Diverticulosis of small intestine without perforation or abscess without bleeding; I70.0 Atherosclerosis of aorta
CPT/HCPCS: 82565; 84520; 71260; 36415; Q9967

== ENCOUNTER 2024-09-22 10:27 | Day surgery (SDC) | payer MEDICARE, OTHER ==
[2024-09-21 11:37] VITALS: BMI 31.8
[2024-09-22 10:54] VITALS: TEMP 98.2
--- NOTE | 2024-09-22 12:02 | P.PCN ---
Date of Procedure: 09/22/24 Preoperative Diagnosis: Pleural effusion, left Postoperative Diagnosis: Pleural effusion, left Procedure(s) Performed: Thoracentesis, left Anesthesia: local Surgeon: Won Lowery Estimated Blood Loss (ml): 0 Pathology: other Condition: stable Disposition: same day Operative Findings: A time out was performed and the chest x-ray was reviewed, the appropriate side was confirmed and marked. My hands were washed immediately prior to the procedure. I wore a surgical cap, mask with protective eyewear, sterile gown and sterile gloves throughout the procedure. The patient was prepped and draped in a sterile manner using chlorhexidine scrub after the appropriate level was perc ussed and confirmed by ultrasound. 1% lidocaine was used to anesthesize the skin, subcutaneous tissue, superior aspect of the rib periosteum and parietal pleura. A finder needle was then introduced over the superior aspect of the rib to locate the pleural fluid; 2colored fluid was aspirated at a depth of approximately 2 cm. A 10-blade scalpel was used to danii the skin at the insertion site. The Bvof-o-Tjpnware needle was then introduced through the skin incision into the pleural space using negative aspiration pressure and the red colometric indicator to confirm appropriate positioning of the needle. The thoracentesis catheter was then threaded without difficulty. 1200 ml of turbid colored fluid was removed without difficulty. The catheter was then removed. No immediate complications were noted during the procedure. A post-procedure chest x-ray is pending at the time of this note. The fluid will be sent for studies. Estimated blood loss is 0cc
[2024-09-22 12:08] VITALS: RESP 16
--- NOTE | 2024-09-22 12:37 | XR ---
EXAMINATION TYPE: XR chest 1V DATE OF EXAM: 09/22/2024 12:21 PM COMPARISON: Chest radiographs from 08/01/2024 CLINICAL INDICATION: Female, 69 years old with history of post thora; TECHNIQUE: XR chest 1V Frontal view of the chest. FINDINGS: Lungs/Pleura: Decrease in left pleural effusion, no evidence for pneumothorax. There is no evidence o f right pleural effusion, focal consolidation, or pneumothorax. Pulmonary vascularity: Unremarkable. Heart/mediastinum: Cardiomediastinal silhouette is unremarkable. Musculoskeletal: No acute osseous pathology. IMPRESSION: Persistent left pleural effusion No evidence for pneumothorax. [facility], , 09/22/2024 12:34 PM
[2024-09-22 13:00] VITALS: BP 124/74; PULSE 88
== END 2024-09-22 12:30 | disposition home or self-care (01) ==
LOC: ORWHC2ENDO 10:27
PROVIDERS: ATTEND Internal Medicine Critical Care Medicine
DX: J90 Pleural effusion, not elsewhere classified (principal); M06.9 Rheumatoid arthritis, unspecified
CPT/HCPCS: 71045; 88108; 88305